=== PATIENT | female | born 1980 | race African-American/Black ===

== ENCOUNTER 2017-06-07 09:39 | Emergency (ER) | payer OTHER, MEDICAID ==
[~2017-06-07] VITALS: Ht 162.6 cm; Wt 87.5 kg
[~2017-06-07 09:39] MED LIST: ACETAMINOPHEN-1 EAC1 PO; AFRIN15 ML NS; AMOXICILLIN 50500 MG PO; CIPROFLOXACIN500 M1 PO; CLARITIN10 MG PO; COLACE100 MG PO; HYDROCHLOROTH12.5 M1 PO; HYDROCODONE-AP1 EAC6 PO; IBUPROFEN 800800 M1 PO; INDOMETHACIN 2525 MG PO; IRON325; IRON325 PO; KEFLEX500 MG PO; KLOR-CON 1010 MEQ PO; LOPRESSOR25 PO; LOPRESSOR50; LOPRESSOR50 PO; MEDROLDOSEPACK PO; MULTI VITAMIN1 EACH PO; NAPROSYN500 MG PO; NORCO 5-325 TA1 EACH PO; PHENERGAN 25 MG25 M1 PO; POTASSIUM20 PO; ROBAXIN 750 MG750 M1 PO; ROBAXIN 750 MG750 MG PO; TESSALON PERLE100 MG PO; UNICOMPLEX M TA1 TA1 PO; ZOFRAN ODT4 MG PO; ZOFRAN4 MG PO; ZPAK PO; ZYRTEC10 M5 PO
[2017-06-07] MEDS ORDERED: PHENERGAN 25 MG25 M1 PO (10:04)
[2017-06-07] MEDS ORDERED: TESSALON PERLE100 MG PO (10:04)
[2017-06-07 10:39] VITALS: BP 147/80
== END 2017-06-07 10:42 | disposition home or self-care (01) ==
LOC: M.ERS 09:39
DX: J06.9 Acute upper respiratory infection, unspecified (principal); I10 Essential (primary) hypertension; G89.29 Other chronic pain

== ENCOUNTER 2017-06-10 08:03 | Emergency (ER) | payer OTHER, MEDICAID ==
[~2017-06-10] VITALS: Ht 162.6 cm; Wt 87.5 kg
[2017-06-10 08:11] VITALS: BP 116/59
[2017-06-10] MEDS ORDERED: IBUPROFEN 800800 M1 PO (08:15)
[2017-06-10] MEDS ORDERED: NORCO 5-325 TA1 EACH PO (08:15)
== END 2017-06-10 08:23 | disposition home or self-care (01) ==
LOC: M.ERS 08:03
DX: M72.2 Plantar fascial fibromatosis (principal); I10 Essential (primary) hypertension; M79.7 Fibromyalgia

== ENCOUNTER 2017-06-12 10:46 | Emergency (ER) | payer OTHER, MEDICAID ==
[~2017-06-12] VITALS: Ht 162.6 cm; Wt 87.5 kg
[2017-06-12 10:56] VITALS: BP 131/76
== END 2017-06-12 11:22 | disposition home or self-care (01) ==
LOC: M.ERS 10:46
DX: I10 Essential (primary) hypertension (principal); G89.29 Other chronic pain

== ENCOUNTER 2017-06-16 07:18 | Emergency (ER) | payer OTHER, MEDICAID ==
[~2017-06-16] VITALS: Ht 162.6 cm; Wt 87.5 kg
[2017-06-16 07:28] LABS: URINE BILIRUBIN NEGATIVE (Negative); URINE BLOOD NEGATIVE (Negative); URINE CLARITY CLEAR; URINE COLOR YELLOW; URINE GLUCOSE-RANDOM NEGATIVE (Negative); URINE KETONES NEGATIVE (Negative); URINE LEUKOCYTES-REFLEX NEGATIVE (Negative); URINE NITRITE-REFLEX NEGATIVE (Negative); URINE PROTEIN NEGATIVE (Negative); URINE UROBILINOGEN 0.2 E.U./dl (0.2-1.0)
[2017-06-16 07:59] VITALS: BP 136/80
== END 2017-06-16 07:59 | disposition home or self-care (01) ==
LOC: M.ERS 07:18
PROVIDERS: Family Medicine
DX: Z71.1 Person with feared health complaint in whom no diagnosis is made (principal); I10 Essential (primary) hypertension; G89.29 Other chronic pain

== ENCOUNTER 2017-06-18 08:03 | Emergency (ER) | payer OTHER, MEDICAID ==
[~2017-06-18] VITALS: Ht 162.6 cm; Wt 89.4 kg
[2017-06-18 08:17] VITALS: BP 156/82
== END 2017-06-18 08:42 | disposition home or self-care (01) ==
LOC: M.ERS 08:03
DX: Z71.1 Person with feared health complaint in whom no diagnosis is made (principal); I10 Essential (primary) hypertension; G89.29 Other chronic pain

== ENCOUNTER 2017-06-19 23:11 | Emergency (ER) | payer OTHER, MEDICAID ==
[~2017-06-19] VITALS: Ht 162.6 cm; Wt 89.4 kg
[2017-06-20 00:35] VITALS: BP 100/54
== END 2017-06-20 00:35 | disposition home or self-care (01) ==
LOC: M.ERS 23:11
DX: R00.2 Palpitations (principal); I10 Essential (primary) hypertension

== ENCOUNTER 2017-06-26 09:36 | Emergency (ER) | payer OTHER, MEDICAID ==
[~2017-06-26] VITALS: Ht 162.6 cm; Wt 87.5 kg
[2017-06-26 09:52] VITALS: BP 195/86
== END 2017-06-26 09:53 | disposition home or self-care (01) ==
LOC: M.ERS 09:36
DX: Z71.1 Person with feared health complaint in whom no diagnosis is made (principal); I10 Essential (primary) hypertension; G89.29 Other chronic pain

== ENCOUNTER 2017-06-28 20:15 | Emergency (ER) | payer OTHER, MEDICAID ==
[~2017-06-28] VITALS: Ht 162.6 cm; Wt 87.5 kg
[2017-06-28 21:22] VITALS: BP 117/66
== END 2017-06-28 21:23 | disposition home or self-care (01) ==
LOC: M.ERS 20:15
DX: Z71.1 Person with feared health complaint in whom no diagnosis is made (principal); I10 Essential (primary) hypertension; G89.29 Other chronic pain

== ENCOUNTER 2017-07-03 17:38 | Emergency (ER) | payer OTHER, MEDICAID ==
[~2017-07-03] VITALS: Ht 162.6 cm; Wt 87.5 kg
[2017-07-03 18:16] LABS: ABSOLUTE BASOPHILS 0.1 thou/uL (0.0-0.2); ABSOLUTE LYMPHOCYTES 2.9 thou/uL (0.8-5.3); ABSOLUTE MONOCYTES 0.6 thou/uL (0.0-1.2); ABSOLUTE NEUTROPHILS 5.1 thou/uL (1.6-8.1); BASOPHILS 1.1 %; EOSINOPHILS 0.5 %; HEMATOCRIT 37.7 % (37.0-47.0); HEMOGLOBIN 12.2 gm/dL (12.0-15.0); LYMPHOCYTES 32.9 %; MCH 26.2 pg (26.0-34.0); MCHC 32.4 g/dL (28.0-37.0); MCV 80.8 fL (80.0-100.0); MONOCYTES 7.2 %; MPV 7.6 fl. (7.2-11.1); NUCLEATED RBCS 0 /100WBC; PLATELET COUNT* 436 thou/uL (150-400); POLYS 58.3 %; RBC 4.67 mil/uL (4.20-5.00); RDW-CV 14.3 % (10.5-14.5); WBC 8.7 thou/uL (4.0-11.0)
[2017-07-03 18:23] LABS: URINE BILIRUBIN NEGATIVE (Negative); URINE BLOOD NEGATIVE (Negative); URINE CLARITY CLEAR; URINE COLOR YELLOW; URINE GLUCOSE-RANDOM NEGATIVE (Negative); URINE KETONES NEGATIVE (Negative); URINE LEUKOCYTES-REFLEX NEGATIVE (Negative); URINE NITRITE-REFLEX NEGATIVE (Negative); URINE PROTEIN NEGATIVE (Negative); URINE UROBILINOGEN 0.2 E.U./dl (0.2-1.0)
[2017-07-03 18:24] LABS: ANION GAP 6 mmol/L (7-16); BUN 12 mg/dL (7-18); CALCIUM 9.2 mg/dL (8.5-10.1); CHLORIDE 101 mmol/L (98-107); CO2 32 mmol/L (21-32); GLUCOSE 81 mg/dL (70-99); POTASSIUM 3.8 mmol/L (3.5-5.1); SODIUM 139 mmol/L (136-145)
[2017-07-03 18:31] LABS: ALBUMIN 3.5 g/dL (3.4-5.0); ALKALINE PHOSPHATASE 66 U/L (46-116); LIPASE 191 U/L (73-393); SGOT 13 U/L (15-37); SGPT 14 U/L (30-65); TOTAL BILIRUBIN 0.3 mg/dL (<0.1-1.0); TOTAL PROTEIN 7.8 g/dL (6.4-8.2); TROPONIN-I LEVEL <0.06 ng/mL (<0.06)
[2017-07-03 19:06] VITALS: BP 114/66
--- NOTE | 2017-07-04 13:45 | EKG ---
[place] [address] ELECTROCARDIOGRAM REPORT Name: DELMI ONEILL Room: [facility]#: [id number] Admission: 07/03/17 Attend Phys: Discharge: 07/03/17 Date of : [birth year] Report #: [id number] THIS REPORT FOR: //name// [facility] ED Test Date: 2017-07-03 Test Time: 17:45:39 Pat Name: DELMI ONEILL Department: Room: Gender: F Opera Singer: HELIO : 1980 Requested By: Anahi Ngo Order Number: [id number] MD: eHrnan Lucero Measurements Intervals [place] Rate: 72 P: 38 HI: 163 QRS: 16 QRSD: 84 T: 8 QT: 375 QTc: 411 Interpretive Statements Sinus rhythm Compared to ECG 05/04/2017 13:19:50 No significant changes Electronically Signed On 07-04-2017 13:45:08 DIE REAMER by Hernan Lucero [email or web address] <ELECTRONICALLY SIGNED> By: Hernan Lucero MD, [facility] 07/04/17 1345 1745 1745 Hernan Lucero MD, FACC /EPI
== END 2017-07-03 19:07 | disposition home or self-care (01) ==
LOC: M.ERS 17:38
PROVIDERS: Nurse Practitioner
DX: R00.2 Palpitations (principal); I10 Essential (primary) hypertension; M79.7 Fibromyalgia; G89.29 Other chronic pain; M79.672 Pain in left foot

== ENCOUNTER 2017-07-10 18:03 | Emergency (ER) | payer OTHER, MEDICAID ==
[~2017-07-10] VITALS: Ht 162.6 cm; Wt 87.5 kg
[2017-07-10 18:08] VITALS: BP 154/73
== END 2017-07-10 18:22 | disposition home or self-care (01) ==
LOC: M.ERS 18:03
DX: J06.9 Acute upper respiratory infection, unspecified (principal); I10 Essential (primary) hypertension

== ENCOUNTER 2017-07-13 16:21 | Emergency (ER) | payer OTHER, MEDICAID ==
[~2017-07-13] VITALS: Ht 162.6 cm; Wt 87.5 kg
[2017-07-13 16:36] VITALS: BP 144/87
[2017-07-13] MEDS ORDERED: LOPRESSOR50 PO (16:40)
[2017-07-13] MEDS ORDERED: IRON325 PO (16:41)
== END 2017-07-13 16:49 | disposition home or self-care (01) ==
LOC: M.ERS 16:21
DX: Z71.1 Person with feared health complaint in whom no diagnosis is made (principal); I10 Essential (primary) hypertension; M79.7 Fibromyalgia; G89.29 Other chronic pain; M79.672 Pain in left foot

== ENCOUNTER 2017-07-18 19:56 | Emergency (ER) | payer OTHER, MEDICAID ==
[~2017-07-18] VITALS: Ht 162.6 cm; Wt 83.0 kg
[2017-07-18 20:23] VITALS: BP 127/73
== END 2017-07-18 20:24 | disposition home or self-care (01) ==
LOC: M.ERS 19:56
DX: Z71.1 Person with feared health complaint in whom no diagnosis is made (principal); I10 Essential (primary) hypertension; M79.7 Fibromyalgia; G89.29 Other chronic pain; M79.672 Pain in left foot

== ENCOUNTER 2017-07-27 09:57 | Emergency (ER) | payer OTHER, MEDICAID ==
[~2017-07-27] VITALS: Ht 162.6 cm; Wt 83.0 kg
[2017-07-27] MEDS ORDERED: ZOFRAN ODT4 MG PO (10:19)
[2017-07-27] MEDS ORDERED: AUGMENTIN 875-1 EACH PO (10:19)
[2017-07-27 10:36] VITALS: BP 144/88
== END 2017-07-27 10:38 | disposition home or self-care (01) ==
LOC: M.ERS 09:57
DX: J06.9 Acute upper respiratory infection, unspecified (principal); I10 Essential (primary) hypertension; M79.7 Fibromyalgia; G89.29 Other chronic pain; M79.672 Pain in left foot

== ENCOUNTER 2017-08-09 15:54 | Emergency (ER) | payer OTHER, MEDICAID ==
[~2017-08-09] VITALS: Ht 162.6 cm; Wt 87.5 kg
[~2017-08-09 15:54] MED LIST changes: +AUGMENTIN 875-1 EACH PO
[2017-08-09 16:33] LABS: URINE BILIRUBIN NEGATIVE (Negative); URINE BLOOD NEGATIVE (Negative); URINE CLARITY CLEAR; URINE COLOR YELLOW; URINE GLUCOSE-RANDOM NEGATIVE (Negative); URINE KETONES NEGATIVE (Negative); URINE LEUKOCYTES-REFLEX NEGATIVE (Negative); URINE NITRITE-REFLEX NEGATIVE (Negative); URINE PROTEIN NEGATIVE (Negative); URINE SPECIFIC GRAVITY >= 1.030 (1.005-1.030); URINE UROBILINOGEN 0.2 E.U./dl (0.2-1.0)
[2017-08-09] MEDS ORDERED: TRAMADOL 50 MG50 MG PO (16:34)
[2017-08-09 16:38] VITALS: BP 140/80
== END 2017-08-09 16:38 | disposition home or self-care (01) ==
LOC: M.ERS 15:54
PROVIDERS: Physician Assistant
DX: M54.5 Low back pain (principal); I10 Essential (primary) hypertension; M79.7 Fibromyalgia; G89.29 Other chronic pain; M79.672 Pain in left foot

== ENCOUNTER 2017-08-16 13:26 | Emergency (ER) | payer OTHER, MEDICAID ==
[~2017-08-16] VITALS: Ht 162.6 cm; Wt 86.2 kg
[~2017-08-16 13:26] MED LIST changes: +TRAMADOL 50 MG50 MG PO
[2017-08-16] MEDS ORDERED: ANTIVERT25 MG PO (13:45)
[2017-08-16 14:33] LABS: HEMATOCRIT 35.3 % (37.0-47.0); HEMOGLOBIN 11.3 gm/dL (12.0-15.0); MCHC 32.1 g/dL (28.0-37.0); MPV 7.5 fl. (7.2-11.1); RBC 4.36 mil/uL (4.20-5.00); RDW-CV 13.4 % (10.5-14.5); WBC 6.6 thou/uL (4.0-11.0)
[2017-08-16 14:40] LABS: CALCIUM 8.7 mg/dL (8.5-10.1); CREATININE 0.8 mg/dL (0.6-1.3); POTASSIUM 3.9 mmol/L (3.5-5.1)
[2017-08-16 15:00] VITALS: BP 130/70
== END 2017-08-16 15:02 | disposition home or self-care (01) ==
LOC: M.ERS 13:26
PROVIDERS: Emergency Medicine Emergency Medical Services
DX: H81.11 Benign paroxysmal vertigo, right ear (principal); I10 Essential (primary) hypertension; M79.7 Fibromyalgia; G89.29 Other chronic pain; M79.672 Pain in left foot

== ENCOUNTER 2017-08-31 19:10 | Emergency (ER) | payer OTHER, MEDICAID ==
[~2017-08-31] VITALS: Ht 162.6 cm; Wt 95.3 kg
[~2017-08-31 19:10] MED LIST changes: +ANTIVERT25 MG PO
[2017-08-31] MEDS ORDERED: CYCLOBENZAPRINE10 MG PO (19:39)
[2017-08-31] MEDS ORDERED: IBUPROFEN 800800 MG PO (19:39)
[2017-08-31 19:50] VITALS: BP 131/51
== END 2017-08-31 19:51 | disposition home or self-care (01) ==
LOC: M.ERS 19:10
DX: M54.6 Pain in thoracic spine (principal); I10 Essential (primary) hypertension; M79.7 Fibromyalgia; G89.29 Other chronic pain; M25.572 Pain in left ankle and joints of left foot

== ENCOUNTER 2017-09-06 11:57 | Emergency (ER) | payer OTHER, MEDICAID ==
[~2017-09-06] VITALS: Ht 162.6 cm; Wt 95.3 kg
[~2017-09-06 11:57] MED LIST changes: +CYCLOBENZAPRINE10 MG PO; +IBUPROFEN 800800 MG PO
[2017-09-06 12:00] VITALS: BP 128/81
[2017-09-06] MEDS ORDERED: FLONASE 0.05%50 MCG NASAL (12:05)
--- NOTE | 2017-09-07 14:33 | EKG ---
[place] [address] ELECTROCARDIOGRAM REPORT Name: DELMI ONEILL Room: [facility]#: [id number] Admission: 09/06/17 Attend Phys: Discharge: 09/06/17 Date of : [birth year] Report #: [id number] THIS REPORT FOR: //name// [facility] ED Test Date: 2017-09-06 Test Time: 12:02:13 Pat Name: DELMI ONEILL Department: Room: Gender: F Senior Risk Manager: : 1980 Requested By: Dinesh Hackett Order Number: [id number] MD: Hernan Lucero Measurements Intervals [place] Rate: 82 P: 54 HI: 179 QRS: 36 QRSD: 82 T: 11 QT: 363 QTc: 424 Interpretive Statements Sinus rhythm Baseline wander in lead(s) II,III,aVF Compared to ECG 07/03/2017 17:45:39 No significant changes Electronically Signed On 09-07-2017 14:33:39 CDT by Hernan Lucero [email or web address] <ELECTRONICALLY SIGNED> By: Hernan Lucero MD, [facility] 09/07/17 1433 1202 120 Hernan Lucero MD, FAC /EPI
== END 2017-09-06 12:09 | disposition home or self-care (01) ==
LOC: M.ERS 11:57
DX: Z71.1 Person with feared health complaint in whom no diagnosis is made (principal); I10 Essential (primary) hypertension; M79.7 Fibromyalgia; G89.29 Other chronic pain; M79.672 Pain in left foot

== ENCOUNTER 2017-09-13 20:00 | Emergency (ER) | payer OTHER, MEDICAID ==
[~2017-09-13] VITALS: Ht 162.6 cm; Wt 95.3 kg
[~2017-09-13 20:00] MED LIST changes: +FLONASE 0.05%50 MCG NASAL
[2017-09-13 20:08] VITALS: BP 139/62
[2017-09-13 20:23] LABS: URINE BILIRUBIN NEGATIVE (Negative); URINE BLOOD NEGATIVE (Negative); URINE CLARITY CLEAR; URINE COLOR YELLOW; URINE GLUCOSE-RANDOM NEGATIVE (Negative); URINE KETONES NEGATIVE (Negative); URINE LEUKOCYTES-REFLEX NEGATIVE (Negative); URINE NITRITE-REFLEX NEGATIVE (Negative); URINE PROTEIN NEGATIVE (Negative); URINE SPECIFIC GRAVITY >= 1.030 (1.005-1.030); URINE UROBILINOGEN 0.2 E.U./dl (0.2-1.0)
[2017-09-13] MEDS ORDERED: PHENAZOPYRIDIN200 M2 PO (20:31)
== END 2017-09-13 20:38 | disposition home or self-care (01) ==
LOC: M.ERS 20:00
PROVIDERS: Physician Assistant
DX: R32 Unspecified urinary incontinence (principal); I10 Essential (primary) hypertension; G89.29 Other chronic pain; M79.672 Pain in left foot; M79.7 Fibromyalgia

== ENCOUNTER 2017-09-17 14:48 | Emergency (ER) | payer OTHER, MEDICAID ==
[~2017-09-17] VITALS: Ht 162.6 cm; Wt 95.3 kg
[~2017-09-17 14:48] MED LIST changes: +PHENAZOPYRIDIN200 M2 PO
[2017-09-17 15:32] LABS: ABSOLUTE EOSINOPHILS 0.1 thou/uL (0.0-0.7); ABSOLUTE LYMPHOCYTES 2.4 thou/uL (0.8-5.3); ABSOLUTE MONOCYTES 0.5 thou/uL (0.0-1.2); ABSOLUTE NEUTROPHILS 3.8 thou/uL (1.6-8.1); BASOPHILS 0.6 %; EOSINOPHILS 1.2 %; HEMOGLOBIN 11.1 gm/dL (12.0-15.0); LYMPHOCYTES 35.3 %; MCH 26.1 pg (26.0-34.0); MCHC 32.5 g/dL (28.0-37.0); MCV 80.1 fL (80.0-100.0); MONOCYTES 6.8 %; MPV 7.5 fl. (7.2-11.1); NUCLEATED RBCS 0 /100WBC; PLATELET COUNT* 360 thou/uL (150-400); POLYS 56.1 %; RBC 4.25 mil/uL (4.20-5.00); RDW-CV 13.4 % (10.5-14.5); WBC 6.8 thou/uL (4.0-11.0)
[2017-09-17 15:41] LABS: ANION GAP 8 mmol/L (7-16); BUN 8 mg/dL (7-18); CALCIUM 8.9 mg/dL (8.5-10.1); CHLORIDE 105 mmol/L (98-107); CO2 28 mmol/L (21-32); CREATININE 0.8 mg/dL (0.6-1.3); GLUCOSE 113 mg/dL (70-99); POTASSIUM 4.2 mmol/L (3.5-5.1); SODIUM 141 mmol/L (136-145)
[2017-09-17 15:46] LABS: URINE BILIRUBIN NEGATIVE (Negative); URINE BLOOD 3+ (Negative); URINE CLARITY CLOUDY; URINE COLOR RED; URINE GLUCOSE-RANDOM NEGATIVE (Negative); URINE KETONES NEGATIVE (Negative); URINE LEUKOCYTES-REFLEX TRACE (Negative); URINE NITRITE-REFLEX NEGATIVE (Negative); URINE PROTEIN 2+ (Negative); URINE UROBILINOGEN 0.2 E.U./dl (0.2-1.0)
[2017-09-17 15:49] LABS: ALBUMIN 3.2 g/dL (3.4-5.0); ALKALINE PHOSPHATASE 58 U/L (46-116); SGOT 14 U/L (15-37); SGPT 16 U/L (30-65); TOTAL BILIRUBIN 0.2 mg/dL (<0.1-1.0); TOTAL PROTEIN 7.1 g/dL (6.4-8.2); TROPONIN-I LEVEL <0.06 ng/mL (<0.06)
[2017-09-17 15:56] LABS: CASTS None Seen /LPF (None Seen); CRYSTALS None Seen /LPF (None Seen); MUCUS None Seen strn/LPF (None Seen); SQUAMOUS 0-3 Few /LPF (0-3); URINE RBC >20 Many /HPF (0-2); URINE WBC-REFLEX 0-5 Rare /HPF (0-5)
[2017-09-17 15:57] LABS: BACTERIA-REFLEX None Seen /HPF (None Seen)
[2017-09-17 16:11] VITALS: BP 136/78
--- NOTE | 2017-09-17 16:43 | EKG ---
[place] [address] ELECTROCARDIOGRAM REPORT Name: DELMI ONEILL Room: [facility]#: [id number] Admission: 09/17/17 Attend Phys: Discharge: 09/17/17 Date of : [birth year] Report #: [id number] THIS REPORT FOR: //name// [facility] ED Test Date: 2017-09-17 Test Time: 15:17:11 Pat Name: DELMI ONEILL Department: Room: Gender: F Senior Clinical Data Coordinator: Samuel CADE : 1980 Requested By: Mar Stahl Order Number: [id number] MD: Hernan Lucero Measurements Intervals [place] Rate: 67 P: 30 IN: 170 QRS: 14 QRSD: 107 T: 3 QT: 402 QTc: 425 Interpretive Statements Sinus rhythm Abnormal R-wave progression, early transition Minimal ST elevation, anterior leads Compared to ECG 09/06/2017 12:02:13 ST (T wave) deviation now present Electronically Signed On 09-17-2017 16:43:39 CDT by Hernan Lucero [email or web address] <ELECTRONICALLY SIGNED> By: Hernan Lucero MD, [facility] 09/17/17 1643 1517 1517 Hernan Lucero MD, [facility] /EPI
== END 2017-09-17 16:11 | disposition home or self-care (01) ==
LOC: M.ERS 14:48
PROVIDERS: Nurse Practitioner Family
DX: I10 Essential (primary) hypertension (principal); M79.7 Fibromyalgia; G89.29 Other chronic pain; M79.672 Pain in left foot

== ENCOUNTER 2017-09-30 08:29 | Emergency (ER) | payer OTHER, MEDICAID ==
[~2017-09-30] VITALS: Ht 162.6 cm; Wt 97.1 kg
[2017-09-30] MEDS ORDERED: IRON325 PO (08:38)
[2017-09-30 08:58] LABS: ABSOLUTE LYMPHOCYTES 2.2 thou/uL (0.8-5.3); ABSOLUTE MONOCYTES 0.4 thou/uL (0.0-1.2); ABSOLUTE NEUTROPHILS 3.2 thou/uL (1.6-8.1); BASOPHILS 0.7 %; EOSINOPHILS 0.6 %; HEMOGLOBIN 11.3 gm/dL (12.0-15.0); LYMPHOCYTES 37.5 %; MCH 25.5 pg (26.0-34.0); MCHC 32.3 g/dL (28.0-37.0); MONOCYTES 7.1 %; MPV 7.8 fl. (7.2-11.1); NUCLEATED RBCS 0 /100WBC; PLATELET COUNT* 382 thou/uL (150-400); POLYS 54.1 %; RBC 4.43 mil/uL (4.20-5.00); RDW-CV 13.8 % (10.5-14.5); WBC 5.9 thou/uL (4.0-11.0)
[2017-09-30 09:17] LABS: ANION GAP 6 mmol/L (7-16); BUN 8 mg/dL (7-18); CALCIUM 8.7 mg/dL (8.5-10.1); CHLORIDE 104 mmol/L (98-107); CO2 30 mmol/L (21-32); CREATININE 0.8 mg/dL (0.6-1.3); GLUCOSE 105 mg/dL (70-99); POTASSIUM 3.9 mmol/L (3.5-5.1); SODIUM 140 mmol/L (136-145)
[2017-09-30 09:21] LABS: ALBUMIN 3.2 g/dL (3.4-5.0); ALKALINE PHOSPHATASE 55 U/L (46-116); LIPASE 119 U/L (73-393); SGOT 14 U/L (15-37); SGPT 15 U/L (30-65); TOTAL BILIRUBIN 0.4 mg/dL (<0.1-1.0); TOTAL PROTEIN 7.1 g/dL (6.4-8.2); TROPONIN-I LEVEL <0.06 ng/mL (<0.06)
[2017-09-30] MEDS ORDERED: CARAFATE 1 GM TA1 G1 PO (09:45)
[2017-09-30] MEDS ORDERED: ZOFRAN ODT4 MG PO (09:45)
[2017-09-30 10:08] VITALS: BP 133/81
--- NOTE | 2017-09-30 16:01 | EKG ---
[place] [address] ELECTROCARDIOGRAM REPORT Name: DELMI ONEILL Room: [facility]#: [id number] Admission: 09/30/17 Attend Phys: Discharge: 09/30/17 Date of : [birth year] Report #: [id number] THIS REPORT FOR: //name// [facility] Test Date: 2017-09-30 Test Time: 09:00:46 Pat Name: STORMYLEXIE ONEILL Department: Room: Gender: F Sander Setter: : 1980 Requested By: Jose Tolbert Order Number: [id number] MD: Tony Oneal Measurements Intervals [place] Rate: 67 P: 23 [place]: 183 QRS: 48 QRSD: 81 T: 54 QT: 387 QTc: 409 Interpretive Statements Sinus rhythm Baseline wander in lead(s) I,II,aVR Compared to ECG 09/17/2017 15:17:11 ST (T wave) deviation no longer present Electronically Signed On 09-30-2017 16:00:59 CDT by Tony Oneal [email or web address] <ELECTRONICALLY SIGNED> By: Tony Oneal MD, [facility] 09/30/17 1600 09 0900 Tony Oneal MD, [facility] /EPI
== END 2017-09-30 10:09 | disposition home or self-care (01) ==
LOC: M.ERS 08:29
PROVIDERS: Emergency Medicine Emergency Medical Services
DX: R10.13 Epigastric pain (principal); I10 Essential (primary) hypertension; M79.7 Fibromyalgia; M79.672 Pain in left foot; G89.29 Other chronic pain

== ENCOUNTER 2017-10-03 20:46 | Emergency (ER) | payer OTHER, MEDICAID ==
[~2017-10-03] VITALS: Ht 162.6 cm; Wt 97.1 kg
[~2017-10-03 20:46] MED LIST changes: +CARAFATE 1 GM TA1 G1 PO
[2017-10-03 21:04] VITALS: BP 149/82
== END 2017-10-03 21:05 | disposition home or self-care (01) ==
LOC: M.ERS 20:46
DX: M54.9 Dorsalgia, unspecified (principal); I10 Essential (primary) hypertension; M79.7 Fibromyalgia; M79.672 Pain in left foot; G89.29 Other chronic pain

== ENCOUNTER 2017-10-11 19:18 | Emergency (ER) | payer OTHER, MEDICAID ==
[~2017-10-11] VITALS: Ht 162.6 cm; Wt 97.1 kg
[2017-10-11] MEDS ORDERED: ZANTAC 150MG T150 MG (19:32)
[2017-10-11 19:54] LABS: URINE BILIRUBIN NEGATIVE (Negative); URINE BLOOD NEGATIVE (Negative); URINE CLARITY CLEAR; URINE COLOR YELLOW; URINE GLUCOSE-RANDOM NEGATIVE (Negative); URINE KETONES NEGATIVE (Negative); URINE LEUKOCYTES-REFLEX NEGATIVE (Negative); URINE NITRITE-REFLEX NEGATIVE (Negative); URINE PROTEIN NEGATIVE (Negative); URINE SPECIFIC GRAVITY 1.025 (1.005-1.030); URINE UROBILINOGEN 0.2 E.U./dl (0.2-1.0)
[2017-10-11 20:20] LABS: ABSOLUTE BASOPHILS 0.1 thou/uL (0.0-0.2); ABSOLUTE EOSINOPHILS 0.1 thou/uL (0.0-0.7); ABSOLUTE MONOCYTES 0.6 thou/uL (0.0-1.2); ABSOLUTE NEUTROPHILS 5.3 thou/uL (1.6-8.1); BASOPHILS 0.6 %; EOSINOPHILS 0.7 %; HEMATOCRIT 35.1 % (37.0-47.0); HEMOGLOBIN 11.3 gm/dL (12.0-15.0); LYMPHOCYTES 33.4 %; MCH 25.6 pg (26.0-34.0); MCHC 32.3 g/dL (28.0-37.0); MCV 79.1 fL (80.0-100.0); MPV 7.5 fl. (7.2-11.1); NUCLEATED RBCS 0 /100WBC; PLATELET COUNT* 347 thou/uL (150-400); POLYS 58.3 %; RBC 4.44 mil/uL (4.20-5.00); RDW-CV 13.4 % (10.5-14.5); WBC 9.1 thou/uL (4.0-11.0)
[2017-10-11 20:28] LABS: CALCIUM 8.7 mg/dL (8.5-10.1); CREATININE 0.9 mg/dL (0.6-1.3); POTASSIUM 3.6 mmol/L (3.5-5.1)
[2017-10-11 20:32] LABS: ALBUMIN 3.3 g/dL (3.4-5.0); TOTAL BILIRUBIN 0.3 mg/dL (<0.1-1.0); TOTAL PROTEIN 7.3 g/dL (6.4-8.2)
[2017-10-11 21:54] VITALS: BP 125/69
== END 2017-10-11 21:54 | disposition home or self-care (01) ==
LOC: M.ERS 19:18
PROVIDERS: Nurse Practitioner Family
DX: K59.00 Constipation, unspecified (principal); I10 Essential (primary) hypertension; M79.7 Fibromyalgia; M79.672 Pain in left foot; G89.29 Other chronic pain

== ENCOUNTER 2017-10-27 13:27 | Emergency (ER) | payer OTHER, MEDICAID ==
[~2017-10-27] VITALS: Ht 162.6 cm; Wt 97.1 kg
[~2017-10-27 13:27] MED LIST changes: +ZANTAC 150MG T150 MG
[2017-10-27 14:05] LABS: URINE BILIRUBIN NEGATIVE (Negative); URINE BLOOD NEGATIVE (Negative); URINE CLARITY CLEAR; URINE COLOR YELLOW; URINE GLUCOSE-RANDOM NEGATIVE (Negative); URINE KETONES NEGATIVE (Negative); URINE LEUKOCYTES-REFLEX NEGATIVE (Negative); URINE NITRITE-REFLEX NEGATIVE (Negative); URINE PROTEIN NEGATIVE (Negative); URINE SPECIFIC GRAVITY <= 1.005 (1.005-1.030); URINE UROBILINOGEN 0.2 E.U./dl (0.2-1.0)
[2017-10-27 14:26] LABS: CALCIUM 8.6 mg/dL (8.5-10.1); CREATININE 0.8 mg/dL (0.6-1.3); POTASSIUM 3.7 mmol/L (3.5-5.1)
[2017-10-27 14:30] LABS: ALBUMIN 3.2 g/dL (3.4-5.0); TOTAL BILIRUBIN 0.2 mg/dL (<0.1-1.0); TOTAL PROTEIN 7.4 g/dL (6.4-8.2)
[2017-10-27 14:41] LABS: ABSOLUTE LYMPHOCYTES 2.5 thou/uL (0.8-5.3); ABSOLUTE MONOCYTES 0.4 thou/uL (0.0-1.2); ABSOLUTE NEUTROPHILS 3.3 thou/uL (1.6-8.1); BASOPHILS 0.5 %; EOSINOPHILS 0.7 %; HEMATOCRIT 35.1 % (37.0-47.0); HEMOGLOBIN 11.4 gm/dL (12.0-15.0); LYMPHOCYTES 39.8 %; MCH 25.5 pg (26.0-34.0); MCHC 32.6 g/dL (28.0-37.0); MCV 78.1 fL (80.0-100.0); MPV 7.6 fl. (7.2-11.1); NUCLEATED RBCS 0 /100WBC; PLATELET COUNT* 395 thou/uL (150-400); RBC 4.49 mil/uL (4.20-5.00); RDW-CV 13.4 % (10.5-14.5); WBC 6.3 thou/uL (4.0-11.0)
[2017-10-27 15:08] VITALS: BP 125/70
--- NOTE | 2017-10-28 11:41 | EKG ---
[place] [address] ELECTROCARDIOGRAM REPORT Name: DELMI ONEILL Room: [facility]#: [id number] Admission: 10/27/17 Attend Phys: Discharge: 10/27/17 Date of : [birth year] Report #: [id number] THIS REPORT FOR: //name// [facility] ED Test Date: 2017-10-27 Test Time: 13:52:03 Pat Name: DELMI ONEILL Department: Room: Gender: F Park Maintenance Technician: Samuel CADE : 1980 Requested By: Heaven Art Order Number: [id number] MD: Mukund Frias Measurements Intervals [place] Rate: 64 P: 14 IA: 180 QRS: 8 QRSD: 84 T: -5 QT: 393 QTc: 406 Interpretive Statements Sinus rhythm Consider left atrial enlargement Borderline repolarization abnormality Compared to ECG 09/30/2017 09:00:46 No significant changes Electronically Signed On 10-28-2017 11:40:59 CDT by Mukund Frias [email or web address] <ELECTRONICALLY SIGNED> By: Mukund Frias MD, [facility] 10/28/17 1140 1352 1352 Mukund Frias MD, FAC /EPI
== END 2017-10-27 15:09 | disposition home or self-care (01) ==
LOC: M.ERS 13:27
PROVIDERS: Physician Assistant
DX: R42 Dizziness and giddiness (principal); I10 Essential (primary) hypertension; G89.29 Other chronic pain; M79.672 Pain in left foot; M79.7 Fibromyalgia

== ENCOUNTER 2017-11-12 14:17 | Emergency (ER) | payer OTHER, MEDICAID ==
[~2017-11-12] VITALS: Ht 165.1 cm; Wt 97.1 kg
[2017-11-12 14:22] VITALS: BP 133/76
== END 2017-11-12 14:27 | disposition home or self-care (01) ==
LOC: M.ERS 14:17
DX: J30.2 Other seasonal allergic rhinitis (principal); I10 Essential (primary) hypertension; M79.7 Fibromyalgia; G89.29 Other chronic pain; M79.672 Pain in left foot

== ENCOUNTER → 2017-12-07 | Emergency (ER) | payer OTHER, MEDICAID ==
[~2017-12-07] MED LIST changes: +AMOXICILLIN 50500 M1 PO; +AMOXIL 875 MG875 M1 PO; +CLONIDINE0.1 PO; +FLEXERIL PO; +MUCINEX1200 MG PO; +Magic Mouthwash PO; +PREDNISONE 20 M20 M1 PO; +PREDNISONE50 MG PO
== END ==
LOC: M.ERS 19:36
DX: Z53.21 Procedure and treatment not carried out due to patient leaving prior to being seen by health care provider (principal)

== ENCOUNTER 2017-12-08 07:23 | Emergency (ER) | payer OTHER, MEDICAID ==
[~2017-12-08] VITALS: Ht 165.1 cm; Wt 90.7 kg
[~2017-12-08 07:23] MED LIST changes: -AMOXICILLIN 50500 M1 PO; -AMOXIL 875 MG875 M1 PO; -CLONIDINE0.1 PO; -FLEXERIL PO; -MUCINEX1200 MG PO; -Magic Mouthwash PO; -PREDNISONE 20 M20 M1 PO; -PREDNISONE50 MG PO
[2017-12-08 08:16] VITALS: BP 132/64
== END 2017-12-08 08:17 | disposition home or self-care (01) ==
LOC: M.ERS 07:23
DX: S80.11XA Contusion of right lower leg, initial encounter (principal); I10 Essential (primary) hypertension; M79.7 Fibromyalgia; W22.8XXA Striking against or struck by other objects, initial encounter; Y93.89 Activity, other specified; Y92.89 Other specified places as the place of occurrence of the external cause; Y99.8 Other external cause status

== ENCOUNTER 2017-12-17 11:26 | Emergency (ER) | payer OTHER, MEDICAID ==
[~2017-12-17] VITALS: Ht 167.6 cm; Wt 90.7 kg
[2017-12-17] MEDS ORDERED: AMOXICILLIN 50500 MG PO (11:52)
[2017-12-17 11:58] VITALS: BP 134/64
== END 2017-12-17 11:59 | disposition home or self-care (01) ==
LOC: M.ERS 11:26
DX: J32.0 Chronic maxillary sinusitis (principal); I10 Essential (primary) hypertension; M79.7 Fibromyalgia; G89.29 Other chronic pain; M79.672 Pain in left foot

== ENCOUNTER 2017-12-30 17:46 | Emergency (ER) | payer OTHER, MEDICAID ==
[~2017-12-30] VITALS: Ht 162.6 cm; Wt 99.8 kg
[2017-12-30] MEDS ORDERED: FLEXERIL PO (18:25)
[2017-12-30 18:36] VITALS: BP 139/83
== END 2017-12-30 18:37 | disposition home or self-care (01) ==
LOC: M.ERS 17:46
DX: M54.5 Low back pain (principal); G89.29 Other chronic pain; M79.672 Pain in left foot; I10 Essential (primary) hypertension; M79.7 Fibromyalgia

== ENCOUNTER 2018-01-06 16:18 | Emergency (ER) | payer OTHER, MEDICAID ==
[~2018-01-06] VITALS: Ht 162.6 cm; Wt 99.8 kg
[~2018-01-06 16:18] MED LIST changes: +FLEXERIL PO
[2018-01-06] MEDS ORDERED: AUGMENTIN 875-1 EACH PO (17:07)
[2018-01-06 17:16] VITALS: BP 128/65
== END 2018-01-06 17:17 | disposition home or self-care (01) ==
LOC: M.ERS 16:18
DX: J32.0 Chronic maxillary sinusitis (principal); J32.1 Chronic frontal sinusitis; I10 Essential (primary) hypertension; M79.7 Fibromyalgia; G89.29 Other chronic pain; M79.672 Pain in left foot

== ENCOUNTER 2018-01-16 07:58 | Emergency (ER) | payer OTHER, MEDICAID ==
[~2018-01-16] VITALS: Ht 162.6 cm; Wt 99.8 kg
[2018-01-16 08:06] VITALS: BP 152/90
[2018-01-16] MEDS ORDERED: MEDROLDOSEPACK PO (08:34)
[2018-01-16] MEDS ORDERED: MUCINEX1200 MG PO (08:34)
== END 2018-01-16 08:48 | disposition home or self-care (01) ==
LOC: M.ERS 07:58
DX: R09.81 Nasal congestion (principal); R06.02 Shortness of breath; I10 Essential (primary) hypertension; M79.7 Fibromyalgia; M79.672 Pain in left foot; G89.29 Other chronic pain

== ENCOUNTER 2018-01-26 10:25 | Emergency (ER) | payer OTHER, MEDICAID ==
[~2018-01-26] VITALS: Ht 162.6 cm; Wt 99.8 kg
[~2018-01-26 10:25] MED LIST changes: +MUCINEX1200 MG PO
[2018-01-26 10:30] VITALS: BP 138/76
[2018-01-26] MEDS ORDERED: AMOXICILLIN 50500 MG PO (10:39)
[2018-01-26] MEDS ORDERED: PREDNISONE 20 M20 M1 PO (10:39)
== END 2018-01-26 10:56 | disposition home or self-care (01) ==
LOC: M.ERS 10:25
DX: J32.0 Chronic maxillary sinusitis (principal); I10 Essential (primary) hypertension; M79.7 Fibromyalgia; G89.29 Other chronic pain; M79.672 Pain in left foot

== ENCOUNTER 2018-01-29 10:43 | Emergency (ER) | payer OTHER, MEDICAID ==
[~2018-01-29] VITALS: Ht 162.6 cm; Wt 99.8 kg
[~2018-01-29 10:43] MED LIST changes: +PREDNISONE 20 M20 M1 PO
[2018-01-29 12:30] VITALS: BP 130/77
== END 2018-01-29 12:31 | disposition home or self-care (01) ==
LOC: M.ERS 10:43
DX: J32.1 Chronic frontal sinusitis (principal); J32.0 Chronic maxillary sinusitis; I10 Essential (primary) hypertension; G89.29 Other chronic pain; M79.672 Pain in left foot; M79.7 Fibromyalgia

== ENCOUNTER 2018-02-07 16:57 | Emergency (ER) | payer OTHER, MEDICAID ==
[~2018-02-07] VITALS: Ht 165.1 cm; Wt 108.0 kg
[2018-02-07 17:34] LABS: CALCIUM 8.4 mg/dL (8.5-10.1); POTASSIUM 3.5 mmol/L (3.5-5.1)
[2018-02-07] MEDS ORDERED: ZOFRAN ODT4 MG PO (17:35)
[2018-02-07 17:41] VITALS: BP 133/79
--- NOTE | 2018-02-10 10:21 | EKG ---
[place] [address] ELECTROCARDIOGRAM REPORT Name: DELMI ONEILL Room: [facility]#: [id number] Admission: 02/07/18 Attend Phys: Discharge: 02/07/18 Date of : [birth year] Report #: [id number] THIS REPORT FOR: //name// [facility] ED Test Date: 2018-02-07 Test Time: 17:20:49 Pat Name: STORMYLEXIE ONEILL Department: Room: Gender: F Advertising Account Executive: GOYO : 1980 Requested By: Coral Thomas Order Number: [id number] MD: Jesus Manuel Sosa Measurements Intervals [place] Rate: 87 P: 56 [place]: 178 QRS: 17 QRSD: 85 T: 3 QT: 358 QTc: 431 Interpretive Statements Sinus rhythm Consider left atrial enlargement Baseline wander in lead(s) II Compared to ECG 10/27/2017 13:52:03 No significant changes Electronically Signed On 02-10-2018 10:21:41 CDT by Jesus Manuel Sosa [email or web address] <ELECTRONICALLY SIGNED> By: Jesus Manuel Sosa MD, [facility] 02/10/18 1021 1720 1720 Jesus Manuel Sosa MD, [facility] /EPI
== END 2018-02-07 17:43 | disposition home or self-care (01) ==
LOC: M.ERS 16:57
PROVIDERS: Nurse Practitioner Family
DX: Z71.1 Person with feared health complaint in whom no diagnosis is made (principal); I10 Essential (primary) hypertension; M79.7 Fibromyalgia; G89.29 Other chronic pain; M79.672 Pain in left foot

== ENCOUNTER 2018-02-23 11:53 | Emergency (ER) | payer OTHER, MEDICAID ==
[~2018-02-23] VITALS: Ht 162.6 cm; Wt 99.8 kg
[2018-02-23] MEDS ORDERED: MEDROLDOSEPACK PO (12:45)
[2018-02-23] MEDS ORDERED: AMOXIL 875 MG875 M1 PO (12:45)
[2018-02-23 12:50] VITALS: BP 125/85
== END 2018-02-23 12:53 | disposition home or self-care (01) ==
LOC: M.ERS 11:53
DX: J32.0 Chronic maxillary sinusitis (principal); I10 Essential (primary) hypertension; M79.7 Fibromyalgia; M79.672 Pain in left foot; G89.29 Other chronic pain

== ENCOUNTER → 2018-02-25 | Outpatient (CLI) | payer OTHER, MEDICAID ==
[~2018-02-25] MED LIST changes: +AMOXICILLIN 50500 M1 PO; +AMOXIL 875 MG875 M1 PO; +CLONIDINE0.1 PO; +Magic Mouthwash PO; +PREDNISONE50 MG PO
--- NOTE | 2018-02-25 14:07 | 2DMMODE ---
[place] [address] 2 D/M-MODE ECHOCARDIOGRAM Name: DELMI ONEILL Room: [facility]#: [id number] Admission: 02/25/18 Attend Phys: BABAR Arredondo Discharge: Date of : [birth year] Date of Service: 02/25/18 1407 Report #: [id number] THIS REPORT FOR: //name// APPROVED REPORT Study performed: 02/25/2018 08:52:07 EXAM: Comprehensive 2D, Doppler, and color-flow Echocardiogram Patient Location: Out-Patient Status: routine BSA: 2.04 HR: 60 bpm BP: 150/96 mmHg Other Information Study Quality: Good Indications Murmur 2D Dimensions IVSd: 8.87 (7-11mm) LVOT Diam: 18.68 (18-24mm) LVDd: 42.69 mm PWd: 8.56 (7-11mm) Ascending Ao: 22.89 (22-36mm) LVDs: 28.24 (25-40mm) Aortic Root: 23.18 mm Volumes Left Atrial Volume (Systole) LA ESV Index: 18.30 mL/m2 Aortic Valve AoV Peak Virgil.: 1.63 m/s AO Peak Gr.: 10.57 mmHg LVOT Max P.31 mmHg AO Mean Gr.: 5.30 mmHg LVOT Mean P.15 mmHg LVOT Max V: 1.15 m/s AO V2 VTI: 33.45 cm LVOT Mean V: 0.65 m/s JOSE M (VTI): 1.83 cm2 LVOT V1 VTI: 22.39 cm Mitral Valve E/A Ratio: 1.54 MV Decel. Time: 203.05 ms MV E Max Virgil.: 0.97 m/s MV PHT: 58.88 [place] [address] 2 D/M-MODE ECHOCARDIOGRAM Name: DELMI ONEILL Room: [facility]#: [id number] Admission: 02/25/18 Attend Phys: BABAR Arredondo Discharge: Date of : 80 Date of Service: 02/25/18 1407 Report #: [id number] MVA (PHT): 3.74 cm2 TDI E/Lateral E': 7.46 E/Medial E': 8.08 Medial E' Virgil.: 0.12 m/s Lateral E' Virgil.: 0.13 m/s Pulmonary Valve PV Peak Virgil.: 0.99 m/s PV Peak Gr.: 3.90 mmHg Tricuspid Valve RAP Estimate: 5.00 mmHg TR Peak Gr.: 24.46 mmHg RVSP: 29.46 mmHg PA Pressure: 29.46 mmHg Left Ventricle The left ventricle is normal size. There is normal LV segmental wall motion. There is normal left ventricular wall thickness. Left ventricular systolic function is normal. The left ventricular ejection fraction is within the normal range. LVEF is 55-60%. The left ventricular diastolic function is normal. Right Ventricle The right ventricle is normal size. The right ventricular systolic function is normal. Atria The left atrium size is normal. The right atrium size is normal. Aortic Valve The aortic valve is normal in structure. No aortic regurgitation is present. There is no aortic valvular stenosis. Mitral Valve The mitral valve is normal in structure. Mild mitral regurgitation. No evidence of mitral valve stenosis. Tricuspid Valve The tricuspid valve is normal in structure. Mild tricuspid regurgitation. Pulmonic Valve The pulmonary valve is normal in structure. Mild [place] [address] 2 D/M-MODE ECHOCARDIOGRAM Name: DELMI ONEILL Room: [facility]#: [id number] Admission: 02/25/18 Attend Phys: Sameera Sweet, OFFICE MACHINE INSPECTOR Discharge: Date of : 80 Date of Service: 02/25/18 1407 Report #: [id number] Great Vessels The aortic root is normal in size. IVC is normal in size and collapses >50% with inspiration. Pericardium There is no pericardial effusion. <Conclusion> LVEF is 55-60%. There is normal LV segmental wall motion. No aortic regurgitation is present. There is no aortic valvular stenosis. Mild mitral regurgitation. Mild tricuspid regurgitation. Mild pulmonic regurgitation. <ELECTRONICALLY SIGNED> By: Tony Oneal MD, FACC 02/25/18 140 140 140 Tony Oneal MD, FACC /INF
== END ==
LOC: M.CRD 08:04
DX: I08.1 Rheumatic disorders of both mitral and tricuspid valves (principal)

== ENCOUNTER 2018-03-06 07:51 | Emergency (ER) | payer OTHER, MEDICAID ==
[~2018-03-06] VITALS: Ht 162.6 cm; Wt 99.8 kg
[~2018-03-06 07:51] MED LIST changes: -AMOXICILLIN 50500 M1 PO; -CLONIDINE0.1 PO; -Magic Mouthwash PO; -PREDNISONE50 MG PO
[2018-03-06 08:22] VITALS: BP 109/73
== END 2018-03-06 08:22 | disposition home or self-care (01) ==
LOC: M.ERS 07:51
DX: B34.9 Viral infection, unspecified (principal); M65.4 Radial styloid tenosynovitis [de Quervain]; I10 Essential (primary) hypertension; M79.7 Fibromyalgia; G89.29 Other chronic pain; M79.672 Pain in left foot

== ENCOUNTER 2018-03-10 21:34 | Emergency (ER) | payer OTHER, MEDICAID ==
[~2018-03-10] VITALS: Ht 162.6 cm; Wt 99.8 kg
[2018-03-10 21:51] LABS: URINE BILIRUBIN NEGATIVE (Negative); URINE BLOOD 3+ (Negative); URINE CLARITY CLEAR; URINE GLUCOSE-RANDOM NEGATIVE (Negative); URINE KETONES NEGATIVE (Negative); URINE LEUKOCYTES-REFLEX NEGATIVE (Negative); URINE NITRITE-REFLEX NEGATIVE (Negative); URINE PROTEIN 1+ (Negative); URINE SPECIFIC GRAVITY <= 1.005 (1.005-1.030); URINE UROBILINOGEN 0.2 E.U./dl (0.2-1.0)
[2018-03-10 21:54] LABS: URINE COLOR PINK
[2018-03-10 21:56] LABS: CASTS None Seen /LPF (None Seen); SQUAMOUS 4-10 Moderate /LPF (0-3)
[2018-03-10 21:58] LABS: BACTERIA-REFLEX 1-9 Few /HPF (None Seen); CRYSTALS None Seen /LPF (None Seen); URINE RBC >20 Many /HPF (0-2); URINE WBC-REFLEX 0-5 Rare /HPF (0-5)
[2018-03-10 22:19] VITALS: BP 124/88
== END 2018-03-10 22:20 | disposition home or self-care (01) ==
LOC: M.ERS 21:34
PROVIDERS: Personal Emergency Response Attendant
DX: S46.812A Strain of other muscles, fascia and tendons at shoulder and upper arm level, left arm, initial encounter (principal); R35.0 Frequency of micturition; I10 Essential (primary) hypertension; M79.7 Fibromyalgia; G89.29 Other chronic pain; M79.672 Pain in left foot; X58.XXXA Exposure to other specified factors, initial encounter; Y93.E5 Activity, floor mopping and cleaning; Y92.89 Other specified places as the place of occurrence of the external cause; Y99.8 Other external cause status

== ENCOUNTER 2018-03-18 08:26 | Emergency (ER) | payer OTHER, MEDICAID ==
[~2018-03-18] VITALS: Ht 165.1 cm; Wt 99.8 kg
[2018-03-18] MEDS ORDERED: AMOXICILLIN 50500 MG PO (08:43)
[2018-03-18 09:04] VITALS: BP 125/71
== END 2018-03-18 09:05 | disposition home or self-care (01) ==
LOC: M.ERS 08:26
DX: J06.9 Acute upper respiratory infection, unspecified (principal); I10 Essential (primary) hypertension; M79.7 Fibromyalgia

== ENCOUNTER 2018-03-20 12:29 | Emergency (ER) | payer OTHER, MEDICAID ==
[~2018-03-20] VITALS: Ht 162.6 cm; Wt 90.7 kg
[2018-03-20 12:33] VITALS: BP 147/80
[2018-03-20] MEDS ORDERED: FLEXERIL PO (12:43)
[2018-03-20] MEDS ORDERED: PREDNISONE50 MG PO (12:43)
== END 2018-03-20 12:45 | disposition home or self-care (01) ==
LOC: M.ERS 12:29
DX: M79.605 Pain in left leg (principal); I10 Essential (primary) hypertension; M79.7 Fibromyalgia; G89.29 Other chronic pain; M79.672 Pain in left foot

== ENCOUNTER 2018-04-04 21:37 | Emergency (ER) | payer OTHER, MEDICAID ==
[~2018-04-04] VITALS: Ht 162.6 cm; Wt 99.8 kg
[~2018-04-04 21:37] MED LIST changes: +PREDNISONE50 MG PO
[2018-04-04 22:09] LABS: URINE BILIRUBIN NEGATIVE (Negative); URINE BLOOD 3+ (Negative); URINE CLARITY CLEAR; URINE COLOR YELLOW; URINE GLUCOSE-RANDOM NEGATIVE (Negative); URINE KETONES NEGATIVE (Negative); URINE LEUKOCYTES-REFLEX NEGATIVE (Negative); URINE NITRITE-REFLEX NEGATIVE (Negative); URINE PROTEIN NEGATIVE (Negative); URINE SPECIFIC GRAVITY >= 1.030 (1.005-1.030); URINE UROBILINOGEN 0.2 E.U./dl (0.2-1.0)
[2018-04-04 22:13] LABS: BACTERIA-REFLEX None Seen /HPF (None Seen); CASTS None Seen /LPF (None Seen); CRYSTALS None Seen /LPF (None Seen); MUCUS 0-3 Light strn/LPF (None Seen); SQUAMOUS 4-10 Moderate /LPF (0-3); URINE RBC 3-10 Few /HPF (0-2); URINE WBC-REFLEX None Seen /HPF (0-5)
[2018-04-04 22:36] VITALS: BP 141/77
== END 2018-04-04 22:40 | disposition home or self-care (01) ==
LOC: M.ERS 21:37
PROVIDERS: Nurse Practitioner Family
DX: R31.9 Hematuria, unspecified (principal); R35.0 Frequency of micturition; I10 Essential (primary) hypertension; M79.7 Fibromyalgia; M79.672 Pain in left foot; G89.29 Other chronic pain

== ENCOUNTER 2018-04-11 10:57 | Emergency (ER) | payer OTHER, MEDICAID ==
[~2018-04-11] VITALS: Ht 162.6 cm; Wt 99.8 kg
[2018-04-11 11:48] VITALS: BP 129/87
== END 2018-04-11 11:49 | disposition home or self-care (01) ==
LOC: M.ERS 10:57
DX: L30.9 Dermatitis, unspecified (principal); S20.312A Abrasion of left front wall of thorax, initial encounter; X58.XXXA Exposure to other specified factors, initial encounter; Y93.89 Activity, other specified; Y92.89 Other specified places as the place of occurrence of the external cause; Y99.8 Other external cause status; I10 Essential (primary) hypertension; M79.7 Fibromyalgia; M79.672 Pain in left foot; G89.29 Other chronic pain

== ENCOUNTER 2018-04-19 12:17 | Emergency (ER) | payer OTHER, MEDICAID ==
[~2018-04-19] VITALS: Ht 162.6 cm; Wt 99.8 kg
[2018-04-19 12:48] VITALS: BP 134/46
== END 2018-04-19 12:50 | disposition home or self-care (01) ==
LOC: M.ERS 12:17
DX: M72.2 Plantar fascial fibromatosis (principal); I10 Essential (primary) hypertension; M79.7 Fibromyalgia

== ENCOUNTER 2018-04-22 08:46 | Emergency (ER) | payer OTHER, MEDICAID ==
[~2018-04-22] VITALS: Ht 162.6 cm; Wt 99.8 kg
[2018-04-22] MEDS ORDERED: CLONIDINE0.1 PO (10:12)
[2018-04-22 10:17] VITALS: BP 150/86
--- NOTE | 2018-04-22 16:29 | EKG ---
[place] [address] ELECTROCARDIOGRAM REPORT Name: DELMI ONEILL Room: [facility]#: [id number] Admission: 04/22/18 Attend Phys: Discharge: 04/22/18 Date of : [birth year] Report #: [id number] THIS REPORT FOR: //name// [facility] ED Test Date: 2018-04-22 Test Time: 08:58:05 Pat Name: DELMI ONEILL Department: Room: Gender: F Business Analytics Faculty Member: Samuel CADE : 1980 Requested By: Heaven Beckett Order Number: [id number] MD: Tony Oneal Measurements Intervals [place] Rate: 88 P: 50 [place]: 174 QRS: 9 QRSD: 81 T: 7 QT: 352 QTc: 426 Interpretive Statements Sinus rhythm Probable left atrial enlargement Compared to ECG 02/07/2018 17:20:49 No significant changes Electronically Signed On 04-22-2018 16:29:29 PAPER PATTERN INSPECTOR by oTny Oneal [email or web address] <ELECTRONICALLY SIGNED> By: Tony Oneal MD, [facility] 04/22/18 1629 0858 0858 Tony Oneal MD, [facility] /EPI
== END 2018-04-22 10:18 | disposition home or self-care (01) ==
LOC: M.ERS 08:46
DX: I10 Essential (primary) hypertension (principal); M79.7 Fibromyalgia; G89.29 Other chronic pain; M79.672 Pain in left foot

== ENCOUNTER 2018-05-07 21:07 | Emergency (ER) | payer OTHER, MEDICAID ==
[~2018-05-07] VITALS: Ht 162.6 cm; Wt 97.5 kg
[~2018-05-07 21:07] MED LIST changes: +CLONIDINE0.1 PO
[2018-05-07] MEDS ORDERED: AMOXICILLIN 50500 M1 PO (22:07)
[2018-05-07 22:17] VITALS: BP 122/65
[2018-05-08] MEDS ORDERED: Magic Mouthwash PO (10:31)
[2018-05-08] MEDS ORDERED: NORCO 5-325 TA1 EACH PO (10:31)
== END 2018-05-07 22:17 | disposition home or self-care (01) ==
LOC: M.ERS 21:07
DX: H66.91 Otitis media, unspecified, right ear (principal); I10 Essential (primary) hypertension; M79.7 Fibromyalgia; M79.672 Pain in left foot; G89.29 Other chronic pain

== ENCOUNTER 2018-05-08 09:33 | Emergency (ER) | payer OTHER, MEDICAID ==
[~2018-05-08] VITALS: Ht 162.6 cm; Wt 97.5 kg
[~2018-05-08 09:33] MED LIST changes: +AMOXICILLIN 50500 M1 PO
[2018-05-08] MEDS ORDERED: NORCO 5-325 TA1 EACH PO (10:31)
[2018-05-08] MEDS ORDERED: Magic Mouthwash PO (10:31)
[2018-05-08 10:50] LABS: ABSOLUTE BASOPHILS 0.1 thou/uL (0.0-0.2); ABSOLUTE MONOCYTES 0.4 thou/uL (0.0-1.2); ABSOLUTE NEUTROPHILS 2.9 thou/uL (1.6-8.1); BASOPHILS 0.9 %; EOSINOPHILS 0.7 %; HEMATOCRIT 36.2 % (37.0-47.0); HEMOGLOBIN 11.6 gm/dL (12.0-15.0); LYMPHOCYTES 36.6 %; MCH 25.3 pg (26.0-34.0); MCHC 32.1 g/dL (28.0-37.0); MCV 78.6 fL (80.0-100.0); MONOCYTES 8.4 %; MPV 7.8 fl. (7.2-11.1); NUCLEATED RBCS 0 /100WBC; PLATELET COUNT* 392 thou/uL (150-400); POLYS 53.4 %; RBC 4.61 mil/uL (4.20-5.00); RDW-CV 14.8 % (10.5-14.5); WBC 5.3 thou/uL (4.0-11.0)
[2018-05-08 11:45] VITALS: BP 148/70
== END 2018-05-08 11:48 | disposition home or self-care (01) ==
LOC: M.ERS 09:33
PROVIDERS: Personal Emergency Response Attendant
DX: E86.0 Dehydration (principal); J02.9 Acute pharyngitis, unspecified; I10 Essential (primary) hypertension; M79.7 Fibromyalgia; M79.672 Pain in left foot; G89.29 Other chronic pain

== ENCOUNTER 2018-05-18 12:20 | Emergency (ER) | payer OTHER, MEDICAID ==
[~2018-05-18] VITALS: Ht 162.6 cm; Wt 99.8 kg
[~2018-05-18 12:20] MED LIST changes: +Magic Mouthwash PO
[2018-05-18] MEDS ORDERED: MEDROLDOSEPACK PO (12:41)
[2018-05-18] MEDS ORDERED: FLONASE 0.05%50 MCG NASAL (12:41)
[2018-05-18] MEDS ORDERED: HYDROXYZINE HCL25 M1 PO (12:41)
[2018-05-18 12:59] VITALS: BP 147/76
== END 2018-05-18 13:00 | disposition home or self-care (01) ==
LOC: M.ERS 12:20
DX: J30.9 Allergic rhinitis, unspecified (principal); I10 Essential (primary) hypertension; M79.7 Fibromyalgia; M79.672 Pain in left foot; G89.29 Other chronic pain

== ENCOUNTER 2018-05-30 18:39 | Emergency (ER) | payer OTHER, MEDICAID ==
[~2018-05-30] VITALS: Ht 162.6 cm; Wt 99.8 kg
[~2018-05-30 18:39] MED LIST changes: +HYDROXYZINE HCL25 M1 PO
[2018-05-30 19:07] LABS: URINE BILIRUBIN NEGATIVE (Negative); URINE BLOOD NEGATIVE (Negative); URINE CLARITY CLEAR; URINE COLOR YELLOW; URINE GLUCOSE-RANDOM NEGATIVE (Negative); URINE KETONES NEGATIVE (Negative); URINE LEUKOCYTES-REFLEX NEGATIVE (Negative); URINE NITRITE-REFLEX NEGATIVE (Negative); URINE PROTEIN NEGATIVE (Negative); URINE SPECIFIC GRAVITY >= 1.030 (1.005-1.030); URINE UROBILINOGEN 0.2 E.U./dl (0.2-1.0)
[2018-05-30] MEDS ORDERED: DIFLUCAN200 MG PO (20:29)
[2018-05-30 20:34] VITALS: BP 144/84
== END 2018-05-30 20:34 | disposition home or self-care (01) ==
LOC: M.ERS 18:39
PROVIDERS: Physician Assistant
DX: N76.0 Acute vaginitis (principal); I10 Essential (primary) hypertension; M79.7 Fibromyalgia; G89.29 Other chronic pain; M79.672 Pain in left foot

== ENCOUNTER 2018-06-03 13:07 | Emergency (ER) | payer OTHER, MEDICAID ==
[~2018-06-03] VITALS: Ht 162.6 cm; Wt 99.8 kg
[~2018-06-03 13:07] MED LIST changes: +DIFLUCAN200 MG PO
[2018-06-03 13:12] VITALS: BP 141/79
== END 2018-06-03 13:18 | disposition home or self-care (01) ==
LOC: M.ERS 13:07
DX: Z71.1 Person with feared health complaint in whom no diagnosis is made (principal); M79.7 Fibromyalgia; G89.29 Other chronic pain; M79.672 Pain in left foot

== ENCOUNTER 2018-06-12 09:01 | Emergency (ER) | payer OTHER, MEDICAID ==
[~2018-06-12] VITALS: Ht 162.6 cm; Wt 99.8 kg
[2018-06-12] MEDS ORDERED: ZOFRAN ODT4 MG PO (10:17)
[2018-06-12 10:24] VITALS: BP 133/81
== END 2018-06-12 10:26 | disposition home or self-care (01) ==
LOC: M.ERS 09:01
DX: R11.0 Nausea (principal); R42 Dizziness and giddiness; I10 Essential (primary) hypertension; M79.7 Fibromyalgia; M79.672 Pain in left foot; G89.29 Other chronic pain

== ENCOUNTER 2018-06-17 10:02 | Emergency (ER) | payer OTHER, MEDICAID ==
[~2018-06-17] VITALS: Ht 162.6 cm; Wt 99.8 kg
[2018-06-17] MEDS ORDERED: [UNRECOGNIZED DRUG - OTHER] MISCELL (11:32)
[2018-06-17] MEDS ORDERED: NAPROSYN500 MG PO (11:33)
[2018-06-17] MEDS ORDERED: ACETAMINOPHEN-1 EAC1 PO (11:33)
[2018-06-17 11:43] VITALS: BP 138/76
== END 2018-06-17 11:43 | disposition home or self-care (01) ==
LOC: M.ERS 10:02
DX: M72.2 Plantar fascial fibromatosis (principal); G89.29 Other chronic pain; M79.672 Pain in left foot; I10 Essential (primary) hypertension; M79.7 Fibromyalgia

== ENCOUNTER → 2018-06-19 | Outpatient (CLI) | payer OTHER, MEDICAID ==
[~2018-06-19] MED LIST changes: +[UNRECOGNIZED DRUG - OTHER] MISCELL
[2018-06-19 10:19] LABS: CHOLESTEROL 215 mg/dL (<200); HDL CHOLESTEROL 47 mg/dL (>40); LDL CHOLESTEROL 151 mg/dL (<100); SERUM ASSESSMENT Clear; TC:HDL 4.6 Ratio (Not establshd); TRIGLYCERIDE 87 mg/dL (<150); VLDL 17 mg/dL (<40)
== END ==
LOC: M.LAB 09:23
PROVIDERS: Nurse Practitioner
DX: E78.00 Pure hypercholesterolemia, unspecified (principal)

== ENCOUNTER → 2018-06-27 | Emergency (ER) | payer OTHER, MEDICAID ==
[~2018-06-27] VITALS: Ht 162.6 cm; Wt 90.7 kg
[2018-06-27 12:08] VITALS: BP 128/77
== END ==
LOC: M.ERS 12:00
DX: J32.0 Chronic maxillary sinusitis (principal); R11.0 Nausea; I10 Essential (primary) hypertension; M79.7 Fibromyalgia; G89.29 Other chronic pain; M79.672 Pain in left foot

== ENCOUNTER 2018-07-11 06:19 | Emergency (ER) | payer OTHER, MEDICAID ==
[~2018-07-11] VITALS: Ht 162.6 cm; Wt 97.5 kg
[2018-07-11 06:45] VITALS: BP 126/66
== END 2018-07-11 06:45 | disposition home or self-care (01) ==
LOC: M.ERS 06:19
DX: J06.9 Acute upper respiratory infection, unspecified (principal); I10 Essential (primary) hypertension; M79.7 Fibromyalgia; G89.29 Other chronic pain; M79.672 Pain in left foot

== ENCOUNTER 2018-07-14 09:20 | Emergency (ER) | payer OTHER, MEDICAID ==
[~2018-07-14] VITALS: Ht 162.6 cm; Wt 97.5 kg
[2018-07-14 10:24] VITALS: BP 119/65
== END 2018-07-14 10:24 | disposition home or self-care (01) ==
LOC: M.ERS 09:20
DX: J06.9 Acute upper respiratory infection, unspecified (principal); I10 Essential (primary) hypertension; M79.7 Fibromyalgia; G89.29 Other chronic pain; M25.572 Pain in left ankle and joints of left foot

== ENCOUNTER 2018-07-22 08:31 | Emergency (ER) | payer OTHER, MEDICAID ==
[~2018-07-22] VITALS: Ht 165.1 cm; Wt 95.3 kg
[2018-07-22] MEDS ORDERED: VIRTUSSIN AC L118 ML PO (08:59)
[2018-07-22 09:04] VITALS: BP 139/83
[2018-07-22] MEDS ORDERED: ZPAK PO (09:04)
== END 2018-07-22 09:05 | disposition home or self-care (01) ==
LOC: M.ERS 08:31
DX: J06.9 Acute upper respiratory infection, unspecified (principal); I10 Essential (primary) hypertension; M79.7 Fibromyalgia; G89.29 Other chronic pain; M79.672 Pain in left foot; Z88.8 Allergy status to other drugs, medicaments and biological substances

== ENCOUNTER 2018-07-28 15:33 | Emergency (ER) | payer OTHER, MEDICAID ==
[~2018-07-28] VITALS: Ht 162.6 cm; Wt 98.9 kg
[~2018-07-28 15:33] MED LIST changes: +VIRTUSSIN AC L118 ML PO
[2018-07-28 17:51] LABS: URINE BILIRUBIN NEGATIVE (Negative); URINE BLOOD 3+ (Negative); URINE CLARITY CLOUDY; URINE COLOR RED; URINE GLUCOSE-RANDOM NEGATIVE (Negative); URINE KETONES NEGATIVE (Negative); URINE LEUKOCYTES-REFLEX TRACE (Negative); URINE PROTEIN 1+ (Negative); URINE SPECIFIC GRAVITY >= 1.030 (1.005-1.030); URINE UROBILINOGEN 0.2 E.U./dl (0.2-1.0)
[2018-07-28 17:52] LABS: URINE NITRITE-REFLEX POSITIVE (Negative)
[2018-07-28 17:56] LABS: MUCUS 0-3 Light strn/LPF (None Seen); SQUAMOUS >10 Many /LPF (0-3); URINE RBC >20 Many /HPF (0-2)
[2018-07-28 17:57] LABS: BACTERIA-REFLEX 1-9 Few /HPF (None Seen); CASTS None Seen /LPF (None Seen); CRYSTALS None Seen /LPF (None Seen); URINE WBC-REFLEX 0-5 Rare /HPF (0-5)
[2018-07-28 18:06] LABS: ABSOLUTE BASOPHILS 0.1 thou/uL (0.0-0.2); ABSOLUTE EOSINOPHILS 0.1 thou/uL (0.0-0.7); ABSOLUTE LYMPHOCYTES 2.5 thou/uL (0.8-5.3); ABSOLUTE MONOCYTES 0.5 thou/uL (0.0-1.2); ABSOLUTE NEUTROPHILS 4.5 thou/uL (1.6-8.1); BASOPHILS 0.8 %; EOSINOPHILS 0.7 %; HEMATOCRIT 35.3 % (37.0-47.0); HEMOGLOBIN 11.6 gm/dL (12.0-15.0); LYMPHOCYTES 32.8 %; MCH 25.9 pg (26.0-34.0); MCHC 32.8 g/dL (28.0-37.0); MCV 79.1 fL (80.0-100.0); MONOCYTES 6.7 %; MPV 7.8 fl. (7.2-11.1); NUCLEATED RBCS 0 /100WBC; PLATELET COUNT* 386 thou/uL (150-400); RBC 4.46 mil/uL (4.20-5.00); RDW-CV 14.2 % (10.5-14.5); WBC 7.7 thou/uL (4.0-11.0)
[2018-07-28] MEDS ORDERED: CIPROFLOXACIN500 M1 PO (18:19)
[2018-07-28 18:24] LABS: ANION GAP 7 mmol/L (7-16); BUN 12 mg/dL (7-18); CALCIUM 8.9 mg/dL (8.5-10.1); CHLORIDE 102 mmol/L (98-107); CO2 29 mmol/L (21-32); CREATININE 0.8 mg/dL (0.6-1.3); GLUCOSE 93 mg/dL (70-99); POTASSIUM 3.9 mmol/L (3.5-5.1); SODIUM 138 mmol/L (136-145)
[2018-07-28 18:31] LABS: ALBUMIN 3.5 g/dL (3.4-5.0); ALKALINE PHOSPHATASE 65 U/L (46-116); SGOT 14 U/L (15-37); SGPT 16 U/L (30-65); TOTAL BILIRUBIN 0.2 mg/dL (<0.1-1.0); TOTAL PROTEIN 7.5 g/dL (6.4-8.2); TROPONIN-I LEVEL <0.06 ng/mL (<0.06)
[2018-07-28 18:43] VITALS: BP 146/85
--- NOTE | 2018-07-29 09:47 | EKG ---
[place] [address] ELECTROCARDIOGRAM REPORT Name: DELMI ONEILL Room: [facility]#: [id number] Admission: 07/28/18 Attend Phys: Discharge: 07/28/18 Date of : [birth year] Report #: [id number] THIS REPORT FOR: //name// [facility] ED Test Date: 2018-07-28 Test Time: 18:37:26 Pat Name: DELMI ONEILL Department: Room: Gender: F Roll Forming Machine Operator: CESAR : 1980 Requested By: Heaven Beckett Order Number: [id number] MD: Tony Oneal Measurements Intervals [place] Rate: 62 P: 36 CT: 174 QRS: 10 QRSD: 97 T: 5 QT: 394 QTc: 400 Interpretive Statements Sinus rhythm Atrial premature complex Probable left ventricular hypertrophy Compared to ECG 04/22/2018 08:58:05 Atrial premature complex(es) now present Electronically Signed On 07-29-2018 9:46:56 JET MAN by Tony Oneal [email or web address] <ELECTRONICALLY SIGNED> By: Tony Oneal MD, FAC 07/29/18 0946 1837 36 Tony Oneal MD, [facility] /EPI
== END 2018-07-28 18:43 | disposition home or self-care (01) ==
LOC: M.ERS 15:33
PROVIDERS: Personal Emergency Response Attendant
DX: N39.0 Urinary tract infection, site not specified (principal); R42 Dizziness and giddiness; I10 Essential (primary) hypertension; M79.7 Fibromyalgia; G89.29 Other chronic pain; M79.672 Pain in left foot

== ENCOUNTER 2018-08-08 13:22 | Emergency (ER) | payer OTHER, MEDICAID ==
[~2018-08-08] VITALS: Ht 162.6 cm; Wt 98.9 kg
[2018-08-08] MEDS ORDERED: ADULT WAL-100 MG/5 M PO (13:46)
[2018-08-08] MEDS ORDERED: VENTOLIN HFA 1818 GM INH (13:46)
[2018-08-08 14:07] VITALS: BP 140/69
== END 2018-08-08 14:09 | disposition home or self-care (01) ==
LOC: M.ERS 13:22
DX: J06.9 Acute upper respiratory infection, unspecified (principal); I10 Essential (primary) hypertension; M79.7 Fibromyalgia; M79.672 Pain in left foot; G89.29 Other chronic pain

== ENCOUNTER 2018-08-12 10:35 | Emergency (ER) | payer OTHER, MEDICAID ==
[~2018-08-12] VITALS: Ht 162.6 cm; Wt 97.1 kg
[~2018-08-12 10:35] MED LIST changes: +ADULT WAL-100 MG/5 M PO; +VENTOLIN HFA 1818 GM INH
[2018-08-12] MEDS ORDERED: FLEXERIL PO (11:12)
[2018-08-12 11:31] VITALS: BP 147/82
== END 2018-08-12 11:32 | disposition home or self-care (01) ==
LOC: M.ERS 10:35
DX: M54.32 Sciatica, left side (principal); I10 Essential (primary) hypertension; M79.7 Fibromyalgia; M79.672 Pain in left foot; G89.29 Other chronic pain

== ENCOUNTER 2018-08-18 09:02 | Emergency (ER) | payer OTHER, MEDICAID ==
[~2018-08-18] VITALS: Ht 162.6 cm; Wt 97.1 kg
[2018-08-18] MEDS ORDERED: TESSALON PERLE100 MG PO (09:31)
[2018-08-18 09:45] VITALS: BP 134/64
== END 2018-08-18 09:46 | disposition home or self-care (01) ==
LOC: M.ERS 09:02
DX: B34.9 Viral infection, unspecified (principal); I10 Essential (primary) hypertension; M79.7 Fibromyalgia; M79.672 Pain in left foot; G89.29 Other chronic pain

== ENCOUNTER 2018-08-25 18:41 | Emergency (ER) | payer OTHER, MEDICAID ==
[~2018-08-25] VITALS: Ht 162.6 cm; Wt 98.4 kg
[2018-08-25 19:02] LABS: URINE BILIRUBIN NEGATIVE (Negative); URINE BLOOD 3+ (Negative); URINE CLARITY CLOUDY; URINE COLOR RED; URINE GLUCOSE-RANDOM NEGATIVE (Negative); URINE KETONES TRACE (Negative); URINE LEUKOCYTES-REFLEX 1+ (Negative); URINE PROTEIN 2+ (Negative); URINE SPECIFIC GRAVITY >= 1.030 (1.005-1.030)
[2018-08-25 19:03] LABS: URINE NITRITE-REFLEX POSITIVE (Negative)
[2018-08-25 19:08] LABS: URINE RBC >20 Many /HPF (0-2)
[2018-08-25 19:09] LABS: CASTS None Seen /LPF (None Seen); MUCUS 0-3 Light strn/LPF (None Seen); SQUAMOUS >10 Many /LPF (0-3)
[2018-08-25 19:10] LABS: BACTERIA-REFLEX 1-9 Few /HPF (None Seen); CRYSTALS None Seen /LPF (None Seen); URINE WBC-REFLEX 0-5 Rare /HPF (0-5)
[2018-08-25 19:23] LABS: ABSOLUTE EOSINOPHILS 0.1 thou/uL (0.0-0.7); ABSOLUTE LYMPHOCYTES 2.6 thou/uL (0.8-5.3); ABSOLUTE MONOCYTES 0.4 thou/uL (0.0-1.2); BASOPHILS 0.5 %; EOSINOPHILS 1.3 %; HEMATOCRIT 34.1 % (37.0-47.0); MCH 25.4 pg (26.0-34.0); MCHC 32.2 g/dL (28.0-37.0); MCV 78.8 fL (80.0-100.0); MONOCYTES 6.9 %; MPV 7.5 fl. (7.2-11.1); NUCLEATED RBCS 0 /100WBC; PLATELET COUNT* 372 thou/uL (150-400); POLYS 49.3 %; RBC 4.32 mil/uL (4.20-5.00); RDW-CV 14.1 % (10.5-14.5); WBC 6.1 thou/uL (4.0-11.0)
[2018-08-25 19:40] LABS: ALBUMIN 3.1 g/dL (3.4-5.0); ALKALINE PHOSPHATASE 59 U/L (46-116); ANION GAP 4 mmol/L (7-16); BUN 10 mg/dL (7-18); CALCIUM 8.6 mg/dL (8.5-10.1); CHLORIDE 105 mmol/L (98-107); CO2 30 mmol/L (21-32); CREATININE 0.9 mg/dL (0.6-1.3); GLUCOSE 96 mg/dL (70-99); POTASSIUM 3.4 mmol/L (3.5-5.1); SGOT 14 U/L (15-37); SGPT 13 U/L (30-65); SODIUM 139 mmol/L (136-145); TOTAL BILIRUBIN 0.2 mg/dL (<0.1-1.0); TROPONIN-I LEVEL <0.06 ng/mL (<0.06)
[2018-08-25] MEDS ORDERED: BACTRIM DS TAB1 EACH PO (20:22)
[2018-08-25] MEDS ORDERED: NAPROSYN500 MG PO (20:23)
[2018-08-25 20:36] VITALS: BP 125/79
--- NOTE | 2018-08-26 17:07 | EKG ---
[place] [address] ELECTROCARDIOGRAM REPORT Name: DELMI ONEILL Room: [facility]#: [id number] Admission: 08/25/18 Attend Phys: Discharge: 08/25/18 Date of : [birth year] Report #: [id number] THIS REPORT FOR: //name// [facility] ED Test Date: 2018-08-25 Test Time: 19:11:03 Pat Name: DELMI ONEILL Department: Room: Gender: F Travel Agent: AVERY : 1980 Requested By: Kae Puente Order Number: [id number] MD: Hernan Lucero Measurements Intervals [place] Rate: 69 P: 27 [place]: 175 QRS: 10 QRSD: 90 T: 0 QT: 385 QTc: 413 Interpretive Statements Sinus rhythm LVH by voltage Compared to ECG 07/28/2018 18:37:26 Atrial premature complex(es) no longer present Electronically Signed On 08-26-2018 17:07:27 CDT by Hernan Lucero [email or web address] <ELECTRONICALLY SIGNED> By: Hernan Lucero MD, [facility] 08/26/18 1707 10 10 Hernan Lucero MD, FACC /EPI
== END 2018-08-25 20:37 | disposition home or self-care (01) ==
LOC: M.ERS 18:41
PROVIDERS: Nurse Practitioner Family
DX: N39.0 Urinary tract infection, site not specified (principal); I10 Essential (primary) hypertension; M79.7 Fibromyalgia; G89.29 Other chronic pain; M79.672 Pain in left foot; Z88.8 Allergy status to other drugs, medicaments and biological substances

== ENCOUNTER 2018-08-31 08:52 | Emergency (ER) | payer OTHER, MEDICAID ==
[~2018-08-31] VITALS: Ht 162.6 cm; Wt 97.5 kg
[~2018-08-31 08:52] MED LIST changes: +BACTRIM DS TAB1 EACH PO
[2018-08-31] MEDS ORDERED: PREDNISONE 20 M20 M1 PO (10:09)
[2018-08-31 10:15] VITALS: BP 119/71
== END 2018-08-31 10:15 | disposition home or self-care (01) ==
LOC: M.ERS 08:52
DX: M72.2 Plantar fascial fibromatosis (principal); G89.29 Other chronic pain; M79.672 Pain in left foot; I10 Essential (primary) hypertension; M79.7 Fibromyalgia

== ENCOUNTER 2018-09-04 15:12 | Emergency (ER) | payer OTHER, MEDICAID ==
[~2018-09-04] VITALS: Ht 162.6 cm; Wt 98.4 kg
[2018-09-04 15:31] LABS: URINE BILIRUBIN NEGATIVE (Negative); URINE BLOOD NEGATIVE (Negative); URINE CLARITY CLEAR; URINE COLOR YELLOW; URINE GLUCOSE-RANDOM NEGATIVE (Negative); URINE KETONES TRACE (Negative); URINE LEUKOCYTES-REFLEX NEGATIVE (Negative); URINE NITRITE-REFLEX NEGATIVE (Negative); URINE PROTEIN TRACE (Negative); URINE SPECIFIC GRAVITY >= 1.030 (1.005-1.030); URINE UROBILINOGEN 0.2 E.U./dl (0.2-1.0)
[2018-09-04 15:42] LABS: ABSOLUTE BASOPHILS 0.1 thou/uL (0.0-0.2); ABSOLUTE LYMPHOCYTES 2.7 thou/uL (0.8-5.3); ABSOLUTE MONOCYTES 0.5 thou/uL (0.0-1.2); ABSOLUTE NEUTROPHILS 3.3 thou/uL (1.6-8.1); BASOPHILS 0.8 %; EOSINOPHILS 0.6 %; HEMATOCRIT 37.1 % (37.0-47.0); HEMOGLOBIN 11.8 gm/dL (12.0-15.0); MCH 25.1 pg (26.0-34.0); MCHC 31.9 g/dL (28.0-37.0); MCV 78.9 fL (80.0-100.0); MONOCYTES 7.7 %; MPV 7.9 fl. (7.2-11.1); NUCLEATED RBCS 0 /100WBC; PLATELET COUNT* 452 thou/uL (150-400); POLYS 49.9 %; RDW-CV 14.6 % (10.5-14.5); WBC 6.5 thou/uL (4.0-11.0)
[2018-09-04 16:00] LABS: ALBUMIN 3.6 g/dL (3.4-5.0); CALCIUM 8.8 mg/dL (8.5-10.1); CREATININE 1.1 mg/dL (0.6-1.3); POTASSIUM 3.7 mmol/L (3.5-5.1); TOTAL BILIRUBIN 0.3 mg/dL (<0.1-1.0); TOTAL PROTEIN 7.6 g/dL (6.4-8.2)
[2018-09-04] MEDS ORDERED: IBUPROFEN 800800 M1 PO (16:05)
[2018-09-04 16:14] VITALS: BP 123/69
== END 2018-09-04 16:15 | disposition home or self-care (01) ==
LOC: M.ERS 15:12
PROVIDERS: Physician Assistant
DX: R10.9 Unspecified abdominal pain (principal); I10 Essential (primary) hypertension; M79.7 Fibromyalgia; G89.29 Other chronic pain; M79.672 Pain in left foot

== ENCOUNTER 2018-09-07 13:45 | Emergency (ER) | payer OTHER, MEDICAID ==
[~2018-09-07] VITALS: Ht 162.6 cm; Wt 97.1 kg
[2018-09-07] MEDS ORDERED: CYCLOBENZAPRINE5 MG PO (14:05)
[2018-09-07 14:25] VITALS: BP 132/57
== END 2018-09-07 14:26 | disposition home or self-care (01) ==
LOC: M.ERS 13:45
DX: M54.5 Low back pain (principal); G89.29 Other chronic pain; M79.671 Pain in right foot; I10 Essential (primary) hypertension; M79.7 Fibromyalgia

== ENCOUNTER 2018-09-18 08:18 | Emergency (ER) | payer OTHER, MEDICAID ==
[~2018-09-18] VITALS: Ht 162.6 cm; Wt 97.1 kg
[~2018-09-18 08:18] MED LIST changes: +CYCLOBENZAPRINE5 MG PO
[2018-09-18] MEDS ORDERED: CLARINEX-D 121 EACH PO (08:59)
[2018-09-18 09:03] VITALS: BP 130/80
== END 2018-09-18 09:01 | disposition home or self-care (01) ==
LOC: M.ERS 08:18
DX: J30.2 Other seasonal allergic rhinitis (principal); I10 Essential (primary) hypertension; M79.7 Fibromyalgia; M79.672 Pain in left foot; G89.29 Other chronic pain

== ENCOUNTER 2018-09-27 06:39 | Emergency (ER) | payer OTHER, MEDICAID ==
[~2018-09-27] VITALS: Ht 162.6 cm; Wt 97.1 kg
[~2018-09-27 06:39] MED LIST changes: +CLARINEX-D 121 EACH PO
[2018-09-27] MEDS ORDERED: PREDNISONE 20 M20 M1 PO (07:23)
[2018-09-27] MEDS ORDERED: TRIAMCINOLONE A15 G1 TOP (07:23)
[2018-09-27 07:38] VITALS: BP 115/77
== END 2018-09-27 07:39 | disposition home or self-care (01) ==
LOC: M.ERS 06:39
DX: L25.9 Unspecified contact dermatitis, unspecified cause (principal); I10 Essential (primary) hypertension; M79.7 Fibromyalgia; M79.672 Pain in left foot; G89.29 Other chronic pain

== ENCOUNTER 2018-09-29 10:22 | Emergency (ER) | payer OTHER, MEDICAID ==
[~2018-09-29] VITALS: Ht 162.6 cm; Wt 97.1 kg
[~2018-09-29 10:22] MED LIST changes: +TRIAMCINOLONE A15 G1 TOP
[2018-09-29 10:27] VITALS: BP 134/78
[2018-09-29] MEDS ORDERED: AFRIN15 ML NASAL (10:44)
== END 2018-09-29 10:50 | disposition home or self-care (01) ==
LOC: M.ERS 10:22
DX: J30.9 Allergic rhinitis, unspecified (principal); I10 Essential (primary) hypertension; M79.7 Fibromyalgia; M79.672 Pain in left foot; G89.29 Other chronic pain

== ENCOUNTER 2018-10-05 09:42 | Emergency (ER) | payer OTHER, MEDICAID ==
[~2018-10-05] VITALS: Ht 162.6 cm; Wt 97.1 kg
[~2018-10-05 09:42] MED LIST changes: +AFRIN15 ML NASAL
[2018-10-05 10:15] VITALS: BP 124/57
== END 2018-10-05 10:15 | disposition home or self-care (01) ==
LOC: M.ERS 09:42
DX: I10 Essential (primary) hypertension (principal); Z76.0 Encounter for issue of repeat prescription; M79.7 Fibromyalgia; M79.672 Pain in left foot; G89.29 Other chronic pain

== ENCOUNTER 2018-10-10 08:37 | Emergency (ER) | payer OTHER, MEDICAID ==
[~2018-10-10] VITALS: Ht 162.6 cm; Wt 103.0 kg
[2018-10-10] MEDS ORDERED: ACETAMINOPHEN-1 EAC1 PO (09:29)
[2018-10-10] MEDS ORDERED: TORADOL 10 MG T10 MG PO (09:29)
[2018-10-10 09:58] VITALS: BP 127/69
== END 2018-10-10 09:58 | disposition home or self-care (01) ==
LOC: M.ERS 08:37
DX: R51 Headache (principal); R42 Dizziness and giddiness; I10 Essential (primary) hypertension; G89.29 Other chronic pain; M79.672 Pain in left foot; M79.7 Fibromyalgia; Z88.8 Allergy status to other drugs, medicaments and biological substances

== ENCOUNTER 2018-10-16 10:42 | Emergency (ER) | payer OTHER, MEDICAID ==
[~2018-10-16] VITALS: Ht 162.6 cm; Wt 90.7 kg
[~2018-10-16 10:42] MED LIST changes: +TORADOL 10 MG T10 MG PO
[2018-10-16] MEDS ORDERED: ZOFRAN ODT4 MG DISSOLVE (11:04)
[2018-10-16 11:10] VITALS: BP 149/88
== END 2018-10-16 11:12 | disposition home or self-care (01) ==
LOC: M.ERS 10:42
DX: R11.0 Nausea (principal); I10 Essential (primary) hypertension; M79.7 Fibromyalgia; G89.29 Other chronic pain; M25.572 Pain in left ankle and joints of left foot; Z88.8 Allergy status to other drugs, medicaments and biological substances

== ENCOUNTER 2018-10-25 23:34 | Emergency (ER) | payer OTHER, MEDICAID ==
[~2018-10-25] VITALS: Ht 162.6 cm; Wt 97.1 kg
[~2018-10-25 23:34] MED LIST changes: +ZOFRAN ODT4 MG DISSOLVE
[2018-10-25] MEDS ORDERED: FLONASE 0.05%50 MCG NASAL (23:44)
[2018-10-25] MEDS ORDERED: ZYRTEC10 M2 PO (23:44)
[2018-10-25] MEDS ORDERED: CLARITIN10 MG PO (23:44)
[2018-10-26] MEDS ORDERED: AUGMENTIN 875-1 EACH PO (00:32)
[2018-10-26 00:36] VITALS: BP 127/74
[2018-10-26] MEDS ORDERED: MEDROLDOSEPACK PO (12:15)
[2018-10-26] MEDS ORDERED: MEDI-MECLIZINE25 MG PO (12:16)
== END 2018-10-26 00:36 | disposition home or self-care (01) ==
LOC: M.ERS 23:34
DX: I10 Essential (primary) hypertension (principal); M79.7 Fibromyalgia; M79.672 Pain in left foot; G89.29 Other chronic pain

== ENCOUNTER 2018-10-26 11:03 | Emergency (ER) | payer OTHER, MEDICAID ==
[~2018-10-26] VITALS: Ht 162.6 cm; Wt 97.1 kg
[~2018-10-26 11:03] MED LIST changes: +ZYRTEC10 M2 PO
[2018-10-26] MEDS ORDERED: MEDROLDOSEPACK PO (12:15)
[2018-10-26] MEDS ORDERED: MEDI-MECLIZINE25 MG PO (12:16)
[2018-10-26 12:20] VITALS: BP 134/80
== END 2018-10-26 12:20 | disposition home or self-care (01) ==
LOC: M.ERS 11:03
DX: J32.0 Chronic maxillary sinusitis (principal); I10 Essential (primary) hypertension; M79.7 Fibromyalgia; M79.672 Pain in left foot; G89.29 Other chronic pain

== ENCOUNTER 2018-11-06 18:56 | Emergency (ER) | payer OTHER, MEDICAID ==
[~2018-11-06] VITALS: Ht 162.6 cm; Wt 98.9 kg
[~2018-11-06 18:56] MED LIST changes: +MEDI-MECLIZINE25 MG PO
[2018-11-06 19:06] VITALS: BP 112/64
[2018-11-06] MEDS ORDERED: SINGULAIR 10 MG10 M1 PO (19:36)
[2018-11-06] MEDS ORDERED: DELSYM COU30 MG/5 M1 PO (19:36)
== END 2018-11-06 19:45 | disposition home or self-care (01) ==
LOC: M.ERS 18:56
DX: J30.2 Other seasonal allergic rhinitis (principal); I10 Essential (primary) hypertension; M79.7 Fibromyalgia; M79.672 Pain in left foot; G89.29 Other chronic pain

== ENCOUNTER 2018-11-11 22:40 | Emergency (ER) | payer OTHER, MEDICAID ==
[~2018-11-11] VITALS: Ht 162.6 cm; Wt 98.0 kg
[~2018-11-11 22:40] MED LIST changes: +DELSYM COU30 MG/5 M1 PO; +SINGULAIR 10 MG10 M1 PO
[2018-11-11 23:25] LABS: URINE BILIRUBIN NEGATIVE (Negative); URINE BLOOD NEGATIVE (Negative); URINE CLARITY CLEAR; URINE COLOR YELLOW; URINE GLUCOSE-RANDOM NEGATIVE (Negative); URINE KETONES NEGATIVE (Negative); URINE LEUKOCYTES-REFLEX NEGATIVE (Negative); URINE NITRITE-REFLEX NEGATIVE (Negative); URINE PROTEIN NEGATIVE (Negative); URINE UROBILINOGEN 0.2 E.U./dl (0.2-1.0)
[2018-11-11 23:27] LABS: ABSOLUTE EOSINOPHILS 0.1 thou/uL (0.0-0.7); ABSOLUTE LYMPHOCYTES 3.3 thou/uL (0.8-5.3); ABSOLUTE MONOCYTES 0.5 thou/uL (0.0-1.2); ABSOLUTE NEUTROPHILS 3.6 thou/uL (1.6-8.1); BASOPHILS 0.6 %; EOSINOPHILS 0.7 %; HEMATOCRIT 37.3 % (37.0-47.0); LYMPHOCYTES 43.5 %; MCHC 32.1 g/dL (28.0-37.0); MCV 77.9 fL (80.0-100.0); MPV 8.6 fl. (7.2-11.1); NUCLEATED RBCS 0 /100WBC; PLATELET COUNT* 377 thou/uL (150-400); POLYS 48.2 %; RBC 4.79 mil/uL (4.20-5.00); RDW-CV 14.6 % (10.5-14.5); WBC 7.5 thou/uL (4.0-11.0)
[2018-11-11 23:31] LABS: ANION GAP 10 mmol/L (7-16); BUN 11 mg/dL (7-18); CHLORIDE 104 mmol/L (98-107); CO2 27 mmol/L (21-32); CREATININE 0.8 mg/dL (0.6-1.3); GLUCOSE 104 mg/dL (70-99); POTASSIUM 3.6 mmol/L (3.5-5.1); SODIUM 141 mmol/L (136-145)
[2018-11-11 23:36] LABS: AMP/METHAMP Negative (Negative); BARBITURATES Negative (Negative); BENZODIAZEPINES Negative (Negative); COCAINE Negative (Negative); METHADONE Negative (Negative); OPIATES Negative (Negative); PCP Negative (Negative); THC Negative (Negative)
[2018-11-11 23:43] LABS: ALBUMIN 3.3 g/dL (3.4-5.0); ALKALINE PHOSPHATASE 74 U/L (46-116); SGOT 12 U/L (15-37); SGPT 16 U/L (30-65); TOTAL BILIRUBIN 0.2 mg/dL (<0.1-1.0); TOTAL PROTEIN 7.4 g/dL (6.4-8.2); TROPONIN-I LEVEL <0.06 ng/mL (<0.06)
[2018-11-11 23:58] VITALS: BP 112/61
--- NOTE | 2018-11-12 10:25 | EKG ---
[place] [address] ELECTROCARDIOGRAM REPORT Name: DELMI ONEILL Room: [facility]#: [id number] Admission: 11/11/18 Attend Phys: Discharge: 11/11/18 Date of : [birth year] Report #: [id number] THIS REPORT FOR: //name// [facility] ED Test Date: 2018-11-11 Test Time: 22:46:44 Pat Name: DELMI ONEILL Department: Room: Gender: F Speech Pathologist: : 1980 Requested By: Heaven Beckett Order Number: [id number] MD: Mukund Frias Measurements Intervals [place] Rate: 73 P: 42 [place]: 192 QRS: 12 QRSD: 97 T: 3 QT: 367 QTc: 405 Interpretive Statements Sinus rhythm Compared to ECG 08/25/2018 19:11:03 no change Electronically Signed On 11-12-2018 10:24:59 CDT by Mukund Frias [email or web address] <ELECTRONICALLY SIGNED> By: Mukund Frias MD, [facility] 11/12/18 1024 2246 2246 Mukund Frias MD, FACC /EPI
== END 2018-11-11 23:59 | disposition home or self-care (01) ==
LOC: M.ERS 22:40
PROVIDERS: Personal Emergency Response Attendant
DX: R00.2 Palpitations (principal); I10 Essential (primary) hypertension; M79.7 Fibromyalgia; G89.29 Other chronic pain; M79.672 Pain in left foot

== ENCOUNTER 2018-11-25 19:03 | Emergency (ER) | payer OTHER, MEDICAID ==
[~2018-11-25] VITALS: Ht 162.6 cm; Wt 97.1 kg
[2018-11-25 19:09] VITALS: BP 136/82
[2018-11-25] MEDS ORDERED: IRON325 PO (19:12)
[2018-11-25] MEDS ORDERED: FLONASE 0.05%50 MCG NASAL (19:13)
[2018-11-25] MEDS ORDERED: ZYRTEC10 M5 PO (19:13)
[2018-11-25] MEDS ORDERED: PREDNISONE 20 M20 MG PO (19:23)
== END 2018-11-25 19:38 | disposition home or self-care (01) ==
LOC: M.ERS 19:03
DX: J30.9 Allergic rhinitis, unspecified (principal); H10.13 Acute atopic conjunctivitis, bilateral; I10 Essential (primary) hypertension; M79.7 Fibromyalgia; M79.672 Pain in left foot; G89.29 Other chronic pain

== ENCOUNTER 2018-12-02 13:48 | Emergency (ER) | payer OTHER, MEDICAID ==
[~2018-12-02] VITALS: Ht 167.6 cm; Wt 90.7 kg
[~2018-12-02 13:48] MED LIST changes: +PREDNISONE 20 M20 MG PO
[2018-12-02 14:22] LABS: URINE BILIRUBIN NEGATIVE (Negative); URINE BLOOD NEGATIVE (Negative); URINE CLARITY CLEAR; URINE COLOR YELLOW; URINE GLUCOSE-RANDOM NEGATIVE (Negative); URINE KETONES NEGATIVE (Negative); URINE LEUKOCYTES-REFLEX TRACE (Negative); URINE NITRITE-REFLEX NEGATIVE (Negative); URINE PROTEIN NEGATIVE (Negative); URINE SPECIFIC GRAVITY >= 1.030 (1.005-1.030); URINE UROBILINOGEN 0.2 E.U./dl (0.2-1.0)
[2018-12-02 14:30] LABS: SQUAMOUS >10 Many /LPF (0-3); URINE WBC-REFLEX 0-5 Rare /HPF (0-5)
[2018-12-02 14:31] LABS: BACTERIA-REFLEX 1-9 Few /HPF (None Seen); CASTS None Seen /LPF (None Seen); CRYSTALS None Seen /LPF (None Seen); URINE RBC 0-2 Rare /HPF (0-2)
[2018-12-02 14:46] VITALS: BP 135/89
== END 2018-12-02 14:47 | disposition home or self-care (01) ==
LOC: M.ERS 13:48
PROVIDERS: Nurse Practitioner Family
DX: R35.0 Frequency of micturition (principal); I10 Essential (primary) hypertension; M79.7 Fibromyalgia; M79.672 Pain in left foot; G89.29 Other chronic pain

== ENCOUNTER 2018-12-10 09:34 | Emergency (ER) | payer OTHER, MEDICAID ==
[~2018-12-10] VITALS: Ht 162.6 cm; Wt 97.1 kg
[2018-12-10] MEDS ORDERED: PREDNISONE 10 M10 M1 PO (09:46)
[2018-12-10] MEDS ORDERED: FLONASE 0.05%50 MCG NASAL (09:46)
[2018-12-10 09:53] VITALS: BP 131/84
== END 2018-12-10 09:54 | disposition home or self-care (01) ==
LOC: M.ERS 09:34
DX: J30.2 Other seasonal allergic rhinitis (principal); I10 Essential (primary) hypertension; M79.7 Fibromyalgia; M79.672 Pain in left foot; G89.29 Other chronic pain

== ENCOUNTER 2018-12-30 10:41 | Emergency (ER) | payer OTHER, MEDICAID ==
[~2018-12-30] VITALS: Ht 162.6 cm; Wt 97.1 kg
[~2018-12-30 10:41] MED LIST changes: +PREDNISONE 10 M10 M1 PO
[2018-12-30 11:06] VITALS: BP 132/70
== END 2018-12-30 11:07 | disposition home or self-care (01) ==
LOC: M.ERS 10:41
DX: J30.2 Other seasonal allergic rhinitis (principal); L53.9 Erythematous condition, unspecified; I10 Essential (primary) hypertension; M79.7 Fibromyalgia

== ENCOUNTER 2019-01-07 07:22 | Emergency (ER) | payer OTHER, MEDICAID ==
[~2019-01-07] VITALS: Ht 162.6 cm; Wt 97.1 kg
[2019-01-07 07:28] VITALS: BP 130/61
== END 2019-01-07 07:38 | disposition home or self-care (01) ==
LOC: M.ERS 07:22
DX: M72.2 Plantar fascial fibromatosis (principal); I10 Essential (primary) hypertension; M79.7 Fibromyalgia

== ENCOUNTER 2019-01-19 18:49 | Emergency (ER) | payer OTHER, MEDICAID ==
[~2019-01-19] VITALS: Ht 162.6 cm; Wt 97.1 kg
[2019-01-19 19:09] VITALS: BP 149/79
== END 2019-01-19 19:11 | disposition home or self-care (01) ==
LOC: M.ERS 18:49
DX: L29.8 Other pruritus (principal); I10 Essential (primary) hypertension; M79.7 Fibromyalgia; M79.672 Pain in left foot; G89.29 Other chronic pain

== ENCOUNTER 2019-01-30 08:35 | Emergency (ER) | payer OTHER, MEDICAID ==
[~2019-01-30] VITALS: Ht 162.6 cm; Wt 97.1 kg
[2019-01-30] MEDS ORDERED: TESSALON PERLE100 MG PO (09:45)
[2019-01-30 10:04] VITALS: BP 113/70
== END 2019-01-30 10:05 | disposition home or self-care (01) ==
LOC: M.ERS 08:35
DX: B34.9 Viral infection, unspecified (principal); I10 Essential (primary) hypertension; M79.7 Fibromyalgia; G89.29 Other chronic pain; M79.672 Pain in left foot

== ENCOUNTER 2019-02-17 08:01 | Emergency (ER) | payer OTHER, MEDICAID ==
[~2019-02-17] VITALS: Ht 162.6 cm; Wt 97.1 kg
[2019-02-17 08:34] VITALS: BP 158/75
== END 2019-02-17 08:34 | disposition home or self-care (01) ==
LOC: M.ERS 08:01
DX: M72.2 Plantar fascial fibromatosis (principal); I10 Essential (primary) hypertension; M79.7 Fibromyalgia; G89.29 Other chronic pain

== ENCOUNTER 2019-03-18 10:03 | Emergency (ER) | payer OTHER, MEDICAID ==
[~2019-03-18] VITALS: Ht 162.6 cm; Wt 97.5 kg
[2019-03-18 10:11] VITALS: BP 142/72
== END 2019-03-18 10:58 | disposition home or self-care (01) ==
LOC: M.ERS 10:03
DX: G89.29 Other chronic pain (principal); M79.672 Pain in left foot; I10 Essential (primary) hypertension; M79.7 Fibromyalgia

== ENCOUNTER 2019-04-05 14:05 | Emergency (ER) | payer OTHER, MEDICAID ==
[~2019-04-05] VITALS: Ht 162.6 cm; Wt 99.8 kg
[2019-04-05] MEDS ORDERED: GABAPENTIN100 MG PO (14:14)
[2019-04-05 15:50] VITALS: BP 167/78
== END 2019-04-05 15:51 | disposition home or self-care (01) ==
LOC: M.ERS 14:05
DX: R51 Headache (principal); I10 Essential (primary) hypertension; M79.7 Fibromyalgia; G89.29 Other chronic pain

== ENCOUNTER 2019-04-09 12:35 | Emergency (ER) | payer OTHER, MEDICAID ==
[~2019-04-09] VITALS: Ht 162.6 cm; Wt 97.5 kg
[~2019-04-09 12:35] MED LIST changes: +GABAPENTIN100 MG PO
[2019-04-09 13:11] LABS: ABSOLUTE LYMPHOCYTES 2.1 thou/uL (0.8-5.3); ABSOLUTE MONOCYTES 0.3 thou/uL (0.0-1.2); ABSOLUTE NEUTROPHILS 2.8 thou/uL (1.6-8.1); BASOPHILS 0.6 %; EOSINOPHILS 0.9 %; HEMATOCRIT 32.8 % (37.0-47.0); HEMOGLOBIN 10.8 gm/dL (12.0-15.0); LYMPHOCYTES 39.3 %; MCH 25.5 pg (26.0-34.0); MCHC 32.9 g/dL (28.0-37.0); MCV 77.7 fL (80.0-100.0); MONOCYTES 6.5 %; MPV 7.5 fl. (7.2-11.1); NUCLEATED RBCS 0 /100WBC; PLATELET COUNT* 398 thou/uL (150-400); POLYS 52.7 %; RBC 4.22 mil/uL (4.20-5.00); RDW-CV 14.4 % (10.5-14.5); WBC 5.3 thou/uL (4.0-11.0)
[2019-04-09 13:17] LABS: CALCIUM 8.7 mg/dL (8.5-10.1); CREATININE 0.9 mg/dL (0.6-1.3); POTASSIUM 3.8 mmol/L (3.5-5.1)
[2019-04-09 13:22] LABS: ALBUMIN 3.4 g/dL (3.4-5.0); TOTAL BILIRUBIN 0.3 mg/dL (<0.1-1.0); TOTAL PROTEIN 7.3 g/dL (6.4-8.2)
[2019-04-09 13:44] VITALS: BP 145/76
== END 2019-04-09 13:44 | disposition home or self-care (01) ==
LOC: M.ERS 12:35
PROVIDERS: Emergency Medicine
DX: I10 Essential (primary) hypertension (principal); M79.7 Fibromyalgia

== ENCOUNTER 2019-04-17 12:37 | Emergency (ER) | payer OTHER, MEDICAID ==
[~2019-04-17] VITALS: Ht 162.6 cm; Wt 97.5 kg
[2019-04-17 13:03] LABS: URINE BILIRUBIN NEGATIVE (Negative); URINE BLOOD 3+ (Negative); URINE CLARITY CLEAR; URINE COLOR YELLOW; URINE GLUCOSE-RANDOM NEGATIVE (Negative); URINE KETONES NEGATIVE (Negative); URINE LEUKOCYTES-REFLEX NEGATIVE (Negative); URINE NITRITE-REFLEX NEGATIVE (Negative); URINE PROTEIN 2+ (Negative); URINE SPECIFIC GRAVITY >= 1.030 (1.005-1.030); URINE UROBILINOGEN 0.2 E.U./dl (0.2-1.0)
[2019-04-17 13:10] LABS: SQUAMOUS 0-3 Few /LPF (0-3); URINE RBC 3-10 Few /HPF (0-2); URINE WBC-REFLEX 0-5 Rare /HPF (0-5)
[2019-04-17 13:11] LABS: BACTERIA-REFLEX 1-9 Few /HPF (None Seen); CASTS None Seen /LPF (None Seen); CRYSTALS None Seen /LPF (None Seen); MUCUS 0-3 Light strn/LPF (None Seen)
[2019-04-17] MEDS ORDERED: EUCERIN CALM I200 M1 TOP ×2 (13:48→13:49)
[2019-04-17] MEDS ORDERED: MACROBID 100 M100 M2 PO ×2 (13:48→13:49)
[2019-04-17] MEDS ORDERED: PYRIDIUM100 M1 PO (13:48)
[2019-04-17 13:54] VITALS: BP 156/82
== END 2019-04-17 13:55 | disposition home or self-care (01) ==
LOC: M.ERS 12:37
PROVIDERS: Nurse Practitioner Family
DX: N39.0 Urinary tract infection, site not specified (principal); L85.3 Xerosis cutis; I10 Essential (primary) hypertension; M79.7 Fibromyalgia; G89.29 Other chronic pain

== ENCOUNTER 2019-04-24 08:48 | Emergency (ER) | payer OTHER, MEDICAID ==
[~2019-04-24] VITALS: Ht 162.6 cm; Wt 99.3 kg
[~2019-04-24 08:48] MED LIST changes: +EUCERIN CALM I200 M1 TOP; +MACROBID 100 M100 M2 PO; +PYRIDIUM100 M1 PO
[2019-04-24] MEDS ORDERED: VISTARIL 25 MG25 M1 PO ×2 (09:49→09:50)
[2019-04-24 09:53] VITALS: BP 149/79
== END 2019-04-24 09:54 | disposition home or self-care (01) ==
LOC: M.ERS 08:48
DX: L29.9 Pruritus, unspecified (principal); I10 Essential (primary) hypertension; M79.7 Fibromyalgia; G89.29 Other chronic pain

== ENCOUNTER 2019-04-28 05:46 | Emergency (ER) | payer OTHER, MEDICAID ==
[~2019-04-28] VITALS: Ht 162.6 cm; Wt 99.8 kg
[~2019-04-28 05:46] MED LIST changes: +VISTARIL 25 MG25 M1 PO
[2019-04-28 06:11] LABS: URINE BILIRUBIN NEGATIVE (Negative); URINE BLOOD NEGATIVE (Negative); URINE CLARITY CLEAR; URINE COLOR YELLOW; URINE GLUCOSE-RANDOM NEGATIVE (Negative); URINE KETONES NEGATIVE (Negative); URINE LEUKOCYTES-REFLEX 1+ (Negative); URINE NITRITE-REFLEX NEGATIVE (Negative); URINE PROTEIN NEGATIVE (Negative); URINE SPECIFIC GRAVITY 1.015 (1.005-1.030); URINE UROBILINOGEN 0.2 E.U./dl (0.2-1.0)
[2019-04-28 06:19] LABS: AMP/METHAMP Negative (Negative); BACTERIA-REFLEX 1-9 Few /HPF (None Seen); BARBITURATES Negative (Negative); BENZODIAZEPINES Negative (Negative); CASTS None Seen /LPF (None Seen); COCAINE Negative (Negative); CRYSTALS None Seen /LPF (None Seen); METHADONE Negative (Negative); MUCUS 0-3 Light strn/LPF (None Seen); OPIATES Negative (Negative); PCP Negative (Negative); SQUAMOUS 4-10 Moderate /LPF (0-3); THC Negative (Negative); URINE RBC 0-2 Rare /HPF (0-2); URINE WBC-REFLEX 6-15 Few /HPF (0-5)
[2019-04-28 06:30] LABS: INFLUENZA A ANTIGEN Negative (Negative); INFLUENZA B ANTIGEN Negative (Negative)
[2019-04-28] MEDS ORDERED: ZOFRAN ODT4 MG PO (06:35)
[2019-04-28 06:43] VITALS: BP 148/62
== END 2019-04-28 06:43 | disposition home or self-care (01) ==
LOC: M.ERS 05:46
PROVIDERS: Personal Emergency Response Attendant
DX: J06.9 Acute upper respiratory infection, unspecified (principal); I10 Essential (primary) hypertension; M79.7 Fibromyalgia; G89.29 Other chronic pain; Z79.899 Other long term (current) drug therapy

== ENCOUNTER 2019-05-03 07:51 | Emergency (ER) | payer OTHER, MEDICAID ==
[~2019-05-03] VITALS: Ht 162.6 cm; Wt 97.5 kg
[2019-05-03 08:19] VITALS: BP 137/80
== END 2019-05-03 08:19 | disposition home or self-care (01) ==
LOC: M.ERS 07:51
DX: R06.00 Dyspnea, unspecified (principal); I10 Essential (primary) hypertension; M79.7 Fibromyalgia; G89.29 Other chronic pain

== ENCOUNTER 2019-05-10 11:16 | Emergency (ER) | payer OTHER, MEDICAID ==
[~2019-05-10] VITALS: Ht 167.6 cm; Wt 90.7 kg
[2019-05-10] MEDS ORDERED: IRON160 M1 PO (11:27)
[2019-05-10 12:55] LABS: CALCIUM 9.1 mg/dL (8.5-10.1); CREATININE 0.9 mg/dL (0.6-1.3); POTASSIUM 4.3 mmol/L (3.5-5.1)
[2019-05-10 13:28] VITALS: BP 135/77
== END 2019-05-10 13:29 | disposition home or self-care (01) ==
LOC: M.ERS 11:16
PROVIDERS: Emergency Medicine Emergency Medical Services
DX: R51 Headache (principal); I10 Essential (primary) hypertension; M79.7 Fibromyalgia; G89.29 Other chronic pain

== ENCOUNTER 2019-05-14 10:20 | Emergency (ER) | payer OTHER, MEDICAID ==
[~2019-05-14] VITALS: Ht 162.6 cm; Wt 99.3 kg
[~2019-05-14 10:20] MED LIST changes: +IRON160 M1 PO
[2019-05-14 10:24] VITALS: BP 197/84
[2019-05-14] MEDS ORDERED: MEDROLDOSEPACK PO (10:28)
[2019-05-14] MEDS ORDERED: NABUMETONE 750750 M1 PO (10:28)
[2019-05-14] MEDS ORDERED: TRAMADOL 50 MG50 MG PO (10:43)
== END 2019-05-14 10:51 | disposition home or self-care (01) ==
LOC: M.ERS 10:20
DX: M72.2 Plantar fascial fibromatosis (principal); R60.0 Localized edema; I10 Essential (primary) hypertension; M79.7 Fibromyalgia; G89.29 Other chronic pain

== ENCOUNTER 2019-05-21 08:26 | Emergency (ER) | payer OTHER, MEDICAID ==
[~2019-05-21] VITALS: Ht 162.6 cm; Wt 97.5 kg
[~2019-05-21 08:26] MED LIST changes: +NABUMETONE 750750 M1 PO
[2019-05-21 08:38] LABS: URINE BILIRUBIN NEGATIVE (Negative); URINE BLOOD NEGATIVE (Negative); URINE CLARITY CLEAR; URINE COLOR YELLOW; URINE GLUCOSE-RANDOM NEGATIVE (Negative); URINE KETONES NEGATIVE (Negative); URINE LEUKOCYTES-REFLEX NEGATIVE (Negative); URINE NITRITE-REFLEX NEGATIVE (Negative); URINE PROTEIN NEGATIVE (Negative); URINE SPECIFIC GRAVITY <= 1.005 (1.005-1.030); URINE UROBILINOGEN 0.2 E.U./dl (0.2-1.0)
[2019-05-21 08:46] VITALS: BP 151/81
== END 2019-05-21 08:47 | disposition home or self-care (01) ==
LOC: M.ERS 08:26
PROVIDERS: Emergency Medicine
DX: J06.9 Acute upper respiratory infection, unspecified (principal); I10 Essential (primary) hypertension; G89.29 Other chronic pain; M79.672 Pain in left foot; M79.7 Fibromyalgia; Z88.8 Allergy status to other drugs, medicaments and biological substances

== ENCOUNTER 2019-05-26 21:17 | Emergency (ER) | payer OTHER, MEDICAID ==
[~2019-05-26] VITALS: Ht 162.6 cm; Wt 99.3 kg
[2019-05-26] MEDS ORDERED: TRAMADOL 50 MG50 MG PO (22:19)
[2019-05-26 22:32] VITALS: BP 135/76
== END 2019-05-26 22:32 | disposition home or self-care (01) ==
LOC: M.ERS 21:17
DX: S90.32XA Contusion of left foot, initial encounter (principal); I10 Essential (primary) hypertension; M79.7 Fibromyalgia; G89.29 Other chronic pain; Z91.048 Other nonmedicinal substance allergy status; W20.8XXA Other cause of strike by thrown, projected or falling object, initial encounter; Y92.89 Other specified places as the place of occurrence of the external cause; Y93.89 Activity, other specified; Y99.8 Other external cause status

== ENCOUNTER 2019-06-06 11:42 | Emergency (ER) | payer OTHER, MEDICAID ==
[~2019-06-06] VITALS: Ht 162.6 cm; Wt 99.3 kg
[2019-06-06 12:29] LABS: INFLUENZA A ANTIGEN Negative (Negative); INFLUENZA B ANTIGEN Negative (Negative)
[2019-06-06] MEDS ORDERED: ZOFRAN ODT4 MG SUBLING (12:56)
[2019-06-06 13:00] VITALS: BP 146/79
== END 2019-06-06 13:01 | disposition home or self-care (01) ==
LOC: M.ERS 11:42
PROVIDERS: Family Medicine
DX: B34.9 Viral infection, unspecified (principal); I10 Essential (primary) hypertension; M79.7 Fibromyalgia; M79.672 Pain in left foot; G89.29 Other chronic pain

== ENCOUNTER 2019-06-14 10:34 | Emergency (ER) | payer OTHER, MEDICAID ==
[~2019-06-14] VITALS: Ht 162.6 cm; Wt 99.3 kg
[~2019-06-14 10:34] MED LIST changes: +ZOFRAN ODT4 MG SUBLING
[2019-06-14] MEDS ORDERED: IBUPROFEN 800800 MG PO (10:58)
[2019-06-14 11:03] VITALS: BP 144/80
== END 2019-06-14 11:04 | disposition home or self-care (01) ==
LOC: M.ERS 10:34
DX: M79.672 Pain in left foot (principal); I10 Essential (primary) hypertension; M79.7 Fibromyalgia; G89.29 Other chronic pain

== ENCOUNTER 2019-06-19 07:04 | Emergency (ER) | payer OTHER, MEDICAID ==
[~2019-06-19] VITALS: Ht 162.6 cm; Wt 99.3 kg
[2019-06-19] MEDS ORDERED: ZOFRAN ODT4 MG DISSOLVE (07:39)
[2019-06-19] MEDS ORDERED: TESSALON PERLE100 MG PO (07:39)
[2019-06-19 07:48] LABS: URINE BILIRUBIN NEGATIVE (Negative); URINE BLOOD NEGATIVE (Negative); URINE CLARITY CLEAR; URINE COLOR YELLOW; URINE GLUCOSE-RANDOM NEGATIVE (Negative); URINE KETONES NEGATIVE (Negative); URINE LEUKOCYTES-REFLEX NEGATIVE (Negative); URINE NITRITE-REFLEX NEGATIVE (Negative); URINE PROTEIN NEGATIVE (Negative); URINE UROBILINOGEN 0.2 E.U./dl (0.2-1.0)
[2019-06-19 08:02] VITALS: BP 143/85
== END 2019-06-19 08:03 | disposition home or self-care (01) ==
LOC: M.ERS 07:04
PROVIDERS: Emergency Medicine Emergency Medical Services
DX: J06.9 Acute upper respiratory infection, unspecified (principal); I10 Essential (primary) hypertension; M79.7 Fibromyalgia; G89.29 Other chronic pain

== ENCOUNTER 2019-06-22 19:15 | Emergency (ER) | payer OTHER, MEDICAID ==
[~2019-06-22] VITALS: Ht 162.6 cm; Wt 99.3 kg
[2019-06-22 20:56] VITALS: BP 157/89
== END 2019-06-22 20:56 | disposition home or self-care (01) ==
LOC: M.ERS 19:15
DX: G89.29 Other chronic pain (principal); M79.672 Pain in left foot; R60.0 Localized edema; I10 Essential (primary) hypertension; M79.7 Fibromyalgia

== ENCOUNTER 2019-06-24 07:43 | Emergency (ER) | payer OTHER, MEDICAID ==
[~2019-06-24] VITALS: Ht 162.6 cm; Wt 99.3 kg
[2019-06-24] MEDS ORDERED: ZYRTEC 10 MG TA10 MG PO (08:40)
[2019-06-24 08:45] VITALS: BP 149/84
== END 2019-06-24 08:46 | disposition home or self-care (01) ==
LOC: M.ERS 07:43
DX: R09.81 Nasal congestion (principal); I10 Essential (primary) hypertension; M79.7 Fibromyalgia

== ENCOUNTER 2019-06-28 09:51 | Emergency (ER) | payer OTHER, MEDICAID ==
[~2019-06-28] VITALS: Ht 162.6 cm; Wt 99.3 kg
[~2019-06-28 09:51] MED LIST changes: +ZYRTEC 10 MG TA10 MG PO
[2019-06-28] MEDS ORDERED: AMOXICILLIN 50500 MG PO (10:19)
[2019-06-28 10:43] VITALS: BP 148/79
== END 2019-06-28 10:43 | disposition home or self-care (01) ==
LOC: M.ERS 09:51
DX: K08.89 Other specified disorders of teeth and supporting structures (principal); I10 Essential (primary) hypertension; M79.7 Fibromyalgia

== ENCOUNTER 2019-06-30 10:53 | Emergency (ER) | payer OTHER, MEDICAID ==
[~2019-06-30] VITALS: Ht 162.6 cm; Wt 99.3 kg
[2019-06-30 11:57] LABS: URINE BILIRUBIN NEGATIVE (Negative); URINE BLOOD 3+ (Negative); URINE CLARITY CLEAR; URINE COLOR YELLOW; URINE GLUCOSE-RANDOM NEGATIVE (Negative); URINE KETONES NEGATIVE (Negative); URINE LEUKOCYTES-REFLEX NEGATIVE (Negative); URINE NITRITE-REFLEX NEGATIVE (Negative); URINE PROTEIN NEGATIVE (Negative); URINE SPECIFIC GRAVITY 1.015 (1.005-1.030); URINE UROBILINOGEN 0.2 E.U./dl (0.2-1.0)
[2019-06-30 12:15] LABS: BACTERIA-REFLEX 1-9 Few /HPF (None Seen); CASTS None Seen /LPF (None Seen); CRYSTALS None Seen /LPF (None Seen); MUCUS None Seen strn/LPF (None Seen); SQUAMOUS >10 Many /LPF (0-3); URINE RBC 0-2 Rare /HPF (0-2); URINE WBC-REFLEX 0-5 Rare /HPF (0-5)
[2019-06-30] MEDS ORDERED: CARAFATE1 GM/10 ML PO (12:37)
[2019-06-30 12:40] VITALS: BP 159/78
== END 2019-06-30 12:44 | disposition home or self-care (01) ==
LOC: M.ERS 10:53
PROVIDERS: Nurse Practitioner Family
DX: R10.13 Epigastric pain (principal); I10 Essential (primary) hypertension; M79.7 Fibromyalgia; G89.29 Other chronic pain

== ENCOUNTER 2019-07-17 08:52 | Emergency (ER) | payer OTHER, MEDICAID ==
[~2019-07-17] VITALS: Ht 162.6 cm; Wt 98.9 kg
[~2019-07-17 08:52] MED LIST changes: +CARAFATE1 GM/10 ML PO
[2019-07-17 09:47] LABS: INFLUENZA A ANTIGEN Negative (Negative); INFLUENZA B ANTIGEN Negative (Negative)
[2019-07-17 10:04] VITALS: BP 146/79
== END 2019-07-17 10:05 | disposition home or self-care (01) ==
LOC: M.ERS 08:52
PROVIDERS: Emergency Medicine Emergency Medical Services
DX: B34.9 Viral infection, unspecified (principal); I10 Essential (primary) hypertension; M79.7 Fibromyalgia; G89.29 Other chronic pain; M79.672 Pain in left foot; Z88.8 Allergy status to other drugs, medicaments and biological substances

== ENCOUNTER 2019-07-20 18:09 | Emergency (ER) | payer OTHER, MEDICAID ==
[~2019-07-20] VITALS: Ht 162.6 cm; Wt 99.3 kg
[2019-07-20 18:51] LABS: URINE BILIRUBIN NEGATIVE (Negative); URINE BLOOD NEGATIVE (Negative); URINE CLARITY CLEAR; URINE COLOR YELLOW; URINE GLUCOSE-RANDOM NEGATIVE (Negative); URINE KETONES NEGATIVE (Negative); URINE LEUKOCYTES-REFLEX NEGATIVE (Negative); URINE NITRITE-REFLEX NEGATIVE (Negative); URINE PROTEIN NEGATIVE (Negative); URINE UROBILINOGEN 0.2 E.U./dl (0.2-1.0)
[2019-07-20 19:31] VITALS: BP 136/76
== END 2019-07-20 19:31 | disposition home or self-care (01) ==
LOC: M.ERS 18:09
PROVIDERS: Nurse Practitioner Family
DX: R30.0 Dysuria (principal); I10 Essential (primary) hypertension; M79.7 Fibromyalgia; G89.29 Other chronic pain

== ENCOUNTER 2019-07-26 08:12 | Emergency (ER) | payer OTHER, MEDICAID ==
[~2019-07-26] VITALS: Ht 162.6 cm; Wt 99.3 kg
[2019-07-26] MEDS ORDERED: MEDROLDOSEPACK PO (08:44)
[2019-07-26] MEDS ORDERED: TORADOL 10 MG T10 MG PO (08:44)
[2019-07-26 09:02] VITALS: BP 129/72
== END 2019-07-26 09:02 | disposition home or self-care (01) ==
LOC: M.ERS 08:12
DX: M72.2 Plantar fascial fibromatosis (principal); M54.5 Low back pain; I10 Essential (primary) hypertension; M79.7 Fibromyalgia; G89.29 Other chronic pain; M79.672 Pain in left foot; Z88.8 Allergy status to other drugs, medicaments and biological substances

== ENCOUNTER 2019-08-04 09:47 | Emergency (ER) | payer OTHER, MEDICAID ==
[~2019-08-04] VITALS: Ht 162.6 cm; Wt 99.3 kg
[2019-08-04] MEDS ORDERED: CLARITIN10 MG PO (10:25)
[2019-08-04] MEDS ORDERED: VISINE ALLERGY15 ML OPHTHALMIC (10:25)
[2019-08-04 10:39] VITALS: BP 136/76
== END 2019-08-04 10:40 | disposition home or self-care (01) ==
LOC: M.ERS 09:47
DX: H10.13 Acute atopic conjunctivitis, bilateral (principal); I10 Essential (primary) hypertension; M79.7 Fibromyalgia; G89.29 Other chronic pain

== ENCOUNTER 2019-08-07 09:15 | Emergency (ER) | payer OTHER, MEDICAID ==
[~2019-08-07] VITALS: Ht 162.6 cm; Wt 99.3 kg
[~2019-08-07 09:15] MED LIST changes: +VISINE ALLERGY15 ML OPHTHALMIC
[2019-08-07 10:16] VITALS: BP 148/69
--- NOTE | 2019-08-07 12:10 | EKG ---
[place] [address] ELECTROCARDIOGRAM REPORT Name: DELMI ONEILL Room: [facility]#: [id number] Admission: 08/07/19 Attend Phys: Discharge: 08/07/19 Date of : [birth year] Date of Service: 08/07/19918 Report #: [id number] THIS REPORT FOR: //name// [facility] ED Test Date: 2019-08-07 Test Time: 09:19:05 Pat Name: DELMI ONEILL Department: Room: Gender: Aerospace Assembler: GOYO : 1980 Requested By: Eddie Veloz Order Number: [id number] MD: Mukund Frias Measurements Intervals [place] Rate: 82 P: 48 HI: 174 QRS: 9 QRSD: 84 T: 0 QT: 375 QTc: 438 Interpretive Statements Sinus rhythm Probable left atrial enlargement Compared to ECG 11/11/2018 22:46:44 No significant changes Electronically Signed On 08-07-2019 12:09:21 CIVIL PROCESS SERVER by Mukund Frias [email or web address] <ELECTRONICALLY SIGNED> By: Mukund Frias MD, [facility] 08/07/19 1209 8 8 Mukund Frias MD, [facility] /EPI
== END 2019-08-07 10:16 | disposition home or self-care (01) ==
LOC: M.ERS 09:15
DX: R00.2 Palpitations (principal); I10 Essential (primary) hypertension; M79.7 Fibromyalgia

== ENCOUNTER 2019-08-11 10:56 | Emergency (ER) | payer OTHER, MEDICAID ==
[~2019-08-11] VITALS: Ht 162.6 cm; Wt 99.3 kg
[2019-08-11] MEDS ORDERED: MEDROLDOSEPACK PO (11:32)
[2019-08-11] MEDS ORDERED: ZANAFLEX4 MG PO (11:32)
[2019-08-11 11:48] VITALS: BP 116/60
== END 2019-08-11 11:49 | disposition home or self-care (01) ==
LOC: M.ERS 10:56
DX: M72.2 Plantar fascial fibromatosis (principal); M54.42 Lumbago with sciatica, left side; I10 Essential (primary) hypertension; M79.7 Fibromyalgia

== ENCOUNTER 2019-08-14 16:18 | Emergency (ER) | payer OTHER, MEDICAID ==
[~2019-08-14] VITALS: Ht 162.6 cm; Wt 99.3 kg
[~2019-08-14 16:18] MED LIST changes: +ZANAFLEX4 MG PO
[2019-08-14] MEDS ORDERED: ZOFRAN ODT4 MG PO (17:52)
[2019-08-14 18:00] VITALS: BP 128/71
== END 2019-08-14 18:00 | disposition home or self-care (01) ==
LOC: M.ERS 16:18
DX: J06.9 Acute upper respiratory infection, unspecified (principal); I10 Essential (primary) hypertension; M79.7 Fibromyalgia; G89.29 Other chronic pain

== ENCOUNTER 2019-08-16 10:22 | Emergency (ER) | payer OTHER, MEDICAID ==
[~2019-08-16] VITALS: Ht 162.6 cm; Wt 99.8 kg
[2019-08-16 11:16] LABS: URINE BILIRUBIN NEGATIVE (Negative); URINE BLOOD NEGATIVE (Negative); URINE CLARITY CLEAR; URINE COLOR YELLOW; URINE GLUCOSE-RANDOM NEGATIVE (Negative); URINE KETONES NEGATIVE (Negative); URINE LEUKOCYTES-REFLEX NEGATIVE (Negative); URINE NITRITE-REFLEX NEGATIVE (Negative); URINE PROTEIN NEGATIVE (Negative); URINE SPECIFIC GRAVITY 1.025 (1.005-1.030); URINE UROBILINOGEN 0.2 E.U./dl (0.2-1.0)
[2019-08-16] MEDS ORDERED: PROMS25 WY RECTAL (11:27)
[2019-08-16] MEDS ORDERED: PHENERGAN 25 MG25 M1 PO (11:27)
[2019-08-16 11:44] LABS: ABSOLUTE LYMPHOCYTES 1.8 thou/uL (0.8-5.3); ABSOLUTE MONOCYTES 0.4 thou/uL (0.0-1.2); ABSOLUTE NEUTROPHILS 3.7 thou/uL (1.6-8.1); BASOPHILS 0.7 %; EOSINOPHILS 0.4 %; HEMATOCRIT 37.1 % (37.0-47.0); HEMOGLOBIN 12.2 gm/dL (12.0-15.0); LYMPHOCYTES 29.7 %; MCH 25.9 pg (26.0-34.0); MCV 78.6 fL (80.0-100.0); MONOCYTES 7.1 %; MPV 7.4 fl. (7.2-11.1); NUCLEATED RBCS 0 /100WBC; PLATELET COUNT* 410 thou/uL (150-400); POLYS 62.1 %; RBC 4.72 mil/uL (4.20-5.00); RDW-CV 14.1 % (10.5-14.5); WBC 5.9 thou/uL (4.0-11.0)
[2019-08-16 11:50] LABS: CALCIUM 8.8 mg/dL (8.5-10.1); CREATININE 0.9 mg/dL (0.6-1.3); POTASSIUM 4.3 mmol/L (3.5-5.1)
[2019-08-16 11:55] LABS: ALBUMIN 3.6 g/dL (3.4-5.0); TOTAL BILIRUBIN 0.2 mg/dL (<0.1-1.0); TOTAL PROTEIN 7.8 g/dL (6.4-8.2)
[2019-08-16 12:43] VITALS: BP 125/53
== END 2019-08-16 12:44 | disposition home or self-care (01) ==
LOC: M.ERS 10:22
PROVIDERS: Nurse Practitioner Family
DX: K52.9 Noninfective gastroenteritis and colitis, unspecified (principal); I10 Essential (primary) hypertension; M79.7 Fibromyalgia; G89.29 Other chronic pain

== ENCOUNTER 2019-08-24 06:48 | Emergency (ER) | payer OTHER, MEDICAID ==
[~2019-08-24] VITALS: Ht 162.6 cm; Wt 99.3 kg
[~2019-08-24 06:48] MED LIST changes: +PROMS25 WY RECTAL
[2019-08-24 07:40] VITALS: BP 133/72
== END 2019-08-24 07:41 | disposition home or self-care (01) ==
LOC: M.ERS 06:48
DX: J30.2 Other seasonal allergic rhinitis (principal); I10 Essential (primary) hypertension; M79.7 Fibromyalgia

== ENCOUNTER 2019-08-31 15:17 | Emergency (ER) | payer OTHER, MEDICAID ==
[~2019-08-31] VITALS: Ht 162.6 cm; Wt 99.3 kg
[2019-08-31] MEDS ORDERED: MUCINEX600 MG PO (15:48)
[2019-08-31] MEDS ORDERED: NASONEX17 GM NASAL (15:54)
[2019-08-31 16:00] VITALS: BP 156/91
== END 2019-08-31 16:00 | disposition home or self-care (01) ==
LOC: M.ERS 15:17
DX: R09.81 Nasal congestion (principal); I10 Essential (primary) hypertension; M79.7 Fibromyalgia; G89.29 Other chronic pain

== ENCOUNTER 2019-09-01 14:49 | Emergency (ER) | payer OTHER, MEDICAID ==
[~2019-09-01] VITALS: Ht 172.7 cm; Wt 88.0 kg
[~2019-09-01 14:49] MED LIST changes: +MUCINEX600 MG PO; +NASONEX17 GM NASAL
[2019-09-01 15:13] VITALS: BP 124/75
== END 2019-09-01 15:14 | disposition home or self-care (01) ==
LOC: M.ERS 14:49
DX: R51 Headache (principal); R42 Dizziness and giddiness; I10 Essential (primary) hypertension; M79.7 Fibromyalgia; G89.29 Other chronic pain

== ENCOUNTER 2019-09-06 13:16 | Emergency (ER) | payer OTHER, MEDICAID ==
[~2019-09-06] VITALS: Ht 162.6 cm; Wt 99.8 kg
[2019-09-06 13:48] LABS: URINE BILIRUBIN NEGATIVE (Negative); URINE BLOOD TRACE (Negative); URINE CLARITY CLEAR; URINE COLOR YELLOW; URINE GLUCOSE-RANDOM NEGATIVE (Negative); URINE KETONES NEGATIVE (Negative); URINE LEUKOCYTES-REFLEX NEGATIVE (Negative); URINE NITRITE-REFLEX NEGATIVE (Negative); URINE PROTEIN NEGATIVE (Negative); URINE SPECIFIC GRAVITY <= 1.005 (1.005-1.030); URINE UROBILINOGEN 0.2 E.U./dl (0.2-1.0)
[2019-09-06] MEDS ORDERED: MICONAZOLE3DAY1 EACH VAG (14:40)
[2019-09-06 14:52] VITALS: BP 144/92
== END 2019-09-06 14:53 | disposition home or self-care (01) ==
LOC: M.ERS 13:16
PROVIDERS: Emergency Medicine Emergency Medical Services
DX: L29.2 Pruritus vulvae (principal); I10 Essential (primary) hypertension; M79.7 Fibromyalgia; G89.29 Other chronic pain

== ENCOUNTER 2019-09-11 19:29 | Emergency (ER) | payer OTHER, MEDICAID ==
[~2019-09-11] VITALS: Ht 162.6 cm; Wt 99.8 kg
[~2019-09-11 19:29] MED LIST changes: +MICONAZOLE3DAY1 EACH VAG
[2019-09-11 19:35] VITALS: BP 153/84
== END 2019-09-11 19:54 | disposition home or self-care (01) ==
LOC: M.ERS 19:29
DX: J34.89 Other specified disorders of nose and nasal sinuses (principal); I10 Essential (primary) hypertension; M79.7 Fibromyalgia; G89.29 Other chronic pain

== ENCOUNTER 2019-09-15 21:16 | Emergency (ER) | payer OTHER, MEDICAID ==
[~2019-09-15] VITALS: Ht 165.1 cm; Wt 99.3 kg
[2019-09-15] MEDS ORDERED: ZOFRAN ODT4 MG PO (21:29)
[2019-09-15] MEDS ORDERED: PRILOSEC OTC20 MG PO (21:33)
[2019-09-15 21:38] VITALS: BP 123/72
== END 2019-09-15 21:39 | disposition home or self-care (01) ==
LOC: M.ERS 21:16
DX: J34.89 Other specified disorders of nose and nasal sinuses (principal)

== ENCOUNTER 2019-09-19 07:13 | Emergency (ER) | payer OTHER, MEDICAID ==
[~2019-09-19] VITALS: Ht 162.6 cm; Wt 99.3 kg
[~2019-09-19 07:13] MED LIST changes: +PRILOSEC OTC20 MG PO
[2019-09-19 07:24] LABS: URINE BILIRUBIN NEGATIVE (Negative); URINE BLOOD NEGATIVE (Negative); URINE CLARITY CLEAR; URINE COLOR YELLOW; URINE GLUCOSE-RANDOM NEGATIVE (Negative); URINE KETONES NEGATIVE (Negative); URINE LEUKOCYTES-REFLEX 1+ (Negative); URINE NITRITE-REFLEX NEGATIVE (Negative); URINE PROTEIN NEGATIVE (Negative); URINE SPECIFIC GRAVITY >= 1.030 (1.005-1.030); URINE UROBILINOGEN 0.2 E.U./dl (0.2-1.0)
[2019-09-19 07:33] LABS: SQUAMOUS >10 Many /LPF (0-3)
[2019-09-19 07:37] LABS: BACTERIA-REFLEX >30 Many /HPF (None Seen); URINE RBC 0-2 Rare /HPF (0-2); URINE WBC-REFLEX 0-5 Rare /HPF (0-5)
[2019-09-19 07:38] LABS: MUCUS >6 Heavy strn/LPF (None Seen)
[2019-09-19 07:39] LABS: CASTS None Seen /LPF (None Seen); CRYSTALS None Seen /LPF (None Seen)
[2019-09-19] MEDS ORDERED: KEFLEX500 M1 PO (08:04)
[2019-09-19] MEDS ORDERED: PYRIDIUM200 MG PO (08:04)
[2019-09-19 08:38] VITALS: BP 131/72
== END 2019-09-19 08:35 | disposition home or self-care (01) ==
LOC: M.ERS 07:13
PROVIDERS: Personal Emergency Response Attendant
DX: N39.0 Urinary tract infection, site not specified (principal); I10 Essential (primary) hypertension; M79.7 Fibromyalgia; G89.29 Other chronic pain

== ENCOUNTER 2019-09-22 08:35 | Emergency (ER) | payer OTHER, MEDICAID ==
[~2019-09-22] VITALS: Ht 162.6 cm; Wt 99.3 kg
[~2019-09-22 08:35] MED LIST changes: +KEFLEX500 M1 PO; +PYRIDIUM200 MG PO
[2019-09-22 09:09] VITALS: BP 115/55
== END 2019-09-22 09:10 | disposition home or self-care (01) ==
LOC: M.ERS 08:35
DX: R42 Dizziness and giddiness (principal); I10 Essential (primary) hypertension; M79.7 Fibromyalgia; M79.672 Pain in left foot; G89.29 Other chronic pain

== ENCOUNTER 2019-09-29 08:49 | Emergency (ER) | payer OTHER, MEDICAID ==
[~2019-09-29] VITALS: Ht 162.6 cm; Wt 99.3 kg
[2019-09-29] MEDS ORDERED: NAPROSYN500 MG PO ×2 (09:07→09:16)
[2019-09-29 09:17] VITALS: BP 156/76
== END 2019-09-29 09:17 | disposition home or self-care (01) ==
LOC: M.ERS 08:49
DX: M72.2 Plantar fascial fibromatosis (principal); I10 Essential (primary) hypertension; M79.7 Fibromyalgia; G89.29 Other chronic pain

== ENCOUNTER 2019-10-01 10:49 | Emergency (ER) | payer OTHER, MEDICAID ==
[~2019-10-01] VITALS: Ht 162.6 cm; Wt 99.3 kg
[2019-10-01] MEDS ORDERED: BENADRYL25 MG PO ×2 (11:41)
[2019-10-01 11:48] VITALS: BP 171/69
== END 2019-10-01 11:57 | disposition home or self-care (01) ==
LOC: M.ERS 10:49
DX: J30.9 Allergic rhinitis, unspecified (principal); I10 Essential (primary) hypertension; M79.7 Fibromyalgia; G89.29 Other chronic pain

== ENCOUNTER 2019-10-04 10:05 | Emergency (ER) | payer OTHER, MEDICAID ==
[~2019-10-04] VITALS: Ht 162.6 cm; Wt 99.3 kg
[~2019-10-04 10:05] MED LIST changes: +BENADRYL25 MG PO
[2019-10-04 10:15] VITALS: BP 139/82
[2019-10-04] MEDS ORDERED: CLEOCIN HCL300 MG PO (10:22)
== END 2019-10-04 11:00 | disposition home or self-care (01) ==
LOC: M.ERS 10:05
DX: K59.00 Constipation, unspecified (principal); I10 Essential (primary) hypertension; M79.7 Fibromyalgia; G89.29 Other chronic pain

== ENCOUNTER 2019-10-13 13:11 | Emergency (ER) | payer OTHER, MEDICAID ==
[~2019-10-13] VITALS: Ht 162.6 cm; Wt 99.8 kg
[~2019-10-13 13:11] MED LIST changes: +CLEOCIN HCL300 MG PO
[2019-10-13 14:11] VITALS: BP 125/65
== END 2019-10-13 14:11 | disposition home or self-care (01) ==
LOC: M.ERS 13:11
DX: M54.5 Low back pain (principal); I10 Essential (primary) hypertension; M79.7 Fibromyalgia; M79.672 Pain in left foot; G89.29 Other chronic pain

== ENCOUNTER 2019-10-14 12:38 | Emergency (ER) | payer OTHER, MEDICAID ==
[~2019-10-14] VITALS: Ht 162.6 cm; Wt 99.8 kg
[2019-10-14 14:43] VITALS: BP 152/74
== END 2019-10-14 14:43 | disposition home or self-care (01) ==
LOC: M.ERS 12:38
DX: M54.5 Low back pain (principal); I10 Essential (primary) hypertension; M79.672 Pain in left foot; M79.7 Fibromyalgia; G89.29 Other chronic pain

== ENCOUNTER 2019-10-17 09:38 | Emergency (ER) | payer OTHER, MEDICAID ==
[~2019-10-17] VITALS: Ht 162.6 cm; Wt 99.8 kg
[2019-10-17] MEDS ORDERED: FLEXERIL PO (10:20)
[2019-10-17] MEDS ORDERED: TRAMADOL 50 MG50 MG PO (10:20)
[2019-10-17 10:22] VITALS: BP 114/52
== END 2019-10-17 10:22 | disposition home or self-care (01) ==
LOC: M.ERS 09:38
DX: S39.012A Strain of muscle, fascia and tendon of lower back, initial encounter (principal); I10 Essential (primary) hypertension; M79.7 Fibromyalgia; G89.29 Other chronic pain; V89.2XXA Person injured in unspecified motor-vehicle accident, traffic, initial encounter; Y93.89 Activity, other specified; Y92.89 Other specified places as the place of occurrence of the external cause; Y99.8 Other external cause status

== ENCOUNTER 2019-10-18 14:00 | Emergency (ER) | payer OTHER, MEDICAID ==
[~2019-10-18] VITALS: Ht 162.6 cm; Wt 99.8 kg
[2019-10-18 16:12] VITALS: BP 125/70
--- NOTE | 2019-10-19 16:35 | EKG ---
[place] [address] ELECTROCARDIOGRAM REPORT Name: DELMI ONEILL Room: [facility]#: [id number] Admission: 10/18/19 Attend Phys: Discharge: 10/18/19 Date of : [birth year] Date of Service: 10/18/19 1403 Report #: [id number] THIS REPORT FOR: //name// [facility] ED Test Date: 2019-10-18 Test Time: 14:03:05 Pat Name: DELMI ONEILL Department: Room: Gender: Guardian Family Member: [facility] : 1980 Requested By: Roberto Sequeira Order Number: [id number] MD: Hernan Lucero Measurements Intervals [place] Rate: 90 P: 70 [place]: 169 QRS: 62 QRSD: 76 T: 57 QT: 344 QTc: 421 Interpretive Statements Sinus rhythm Consider right atrial enlargement Compared to ECG 08/07/2019 09:19:05 No significant changes Electronically Signed On 10-19-2019 16:33:39 CDT by Hernan Lucero [email or web address] <ELECTRONICALLY SIGNED> By: Hernan Lucero MD, [facility] 10/19/19 1633 140 02 Hernan Lucero MD, [facility] /EPI
== END 2019-10-18 16:45 | disposition home or self-care (01) ==
LOC: M.ERS 14:00
DX: R00.2 Palpitations (principal); I10 Essential (primary) hypertension; M79.7 Fibromyalgia; G89.29 Other chronic pain

== ENCOUNTER 2019-10-23 21:20 | Emergency (ER) | payer OTHER, MEDICAID ==
[~2019-10-23] VITALS: Ht 162.6 cm; Wt 99.8 kg
[2019-10-23 21:28] VITALS: BP 150/81
[2019-10-23] MEDS ORDERED: INDOMETHACIN 2525 MG PO ×2 (21:55→21:57)
== END 2019-10-23 22:03 | disposition home or self-care (01) ==
LOC: M.ERS 21:20
DX: M72.2 Plantar fascial fibromatosis (principal); I10 Essential (primary) hypertension; M79.7 Fibromyalgia; G89.29 Other chronic pain

== ENCOUNTER 2019-11-01 09:48 | Emergency (ER) | payer OTHER, MEDICAID ==
[~2019-11-01] VITALS: Ht 162.6 cm; Wt 99.8 kg
[2019-11-01] MEDS ORDERED: CLARITIN10 MG PO (10:06)
[2019-11-01 10:15] VITALS: BP 150/92
== END 2019-11-01 10:15 | disposition home or self-care (01) ==
LOC: M.ERS 09:48
DX: T78.40XA Allergy, unspecified, initial encounter (principal); I10 Essential (primary) hypertension; M79.7 Fibromyalgia; G89.29 Other chronic pain; X58.XXXA Exposure to other specified factors, initial encounter

== ENCOUNTER 2019-11-04 10:07 | Emergency (ER) | payer OTHER, MEDICAID ==
[~2019-11-04] VITALS: Ht 162.6 cm; Wt 99.8 kg
[2019-11-04] MEDS ORDERED: PROMS25 WY RECTAL (11:45)
[2019-11-04 11:59] VITALS: BP 145/90
== END 2019-11-04 11:55 | disposition home or self-care (01) ==
LOC: M.ERS 10:07
DX: R11.0 Nausea (principal); I10 Essential (primary) hypertension; M79.7 Fibromyalgia; M79.672 Pain in left foot; G89.29 Other chronic pain

== ENCOUNTER 2019-11-13 15:52 | Emergency (ER) | payer OTHER, MEDICAID ==
[~2019-11-13] VITALS: Ht 162.6 cm; Wt 99.8 kg
[2019-11-13 18:25] VITALS: BP 140/67
--- NOTE | 2019-11-15 12:09 | EKG ---
[place] [address] ELECTROCARDIOGRAM REPORT Name: DELMI ONEILL Room: [facility]#: [id number] Admission: 11/13/19 Attend Phys: Discharge: 11/13/19 Date of : [birth year] Date of Service: 11/13/19 1603 Report #: [id number] THIS REPORT FOR: //name// [facility] ED Test Date: 2019-11-13 Test Time: 16:03:10 Pat Name: DELMI ONEILL Department: Room: Gender: Legal Nurse Consultant: [facility] : 1980 Requested By: Roberto Sequeira Order Number: [id number] MD: Mukund Frias Measurements Intervals [place] Rate: 87 P: 46 [place]: 173 QRS: 15 QRSD: 82 T: 8 QT: 323 QTc: 389 Interpretive Statements Sinus rhythm LVH by voltage Compared to ECG 10/18/2019 14:03:05 Left ventricular hypertrophy now present Electronically Signed On 11-15-2019 12:07:14 CDT by Mukund Frias [email or web address] <ELECTRONICALLY SIGNED> By: Mukund Frias MD, [facility] 11/15/19 1207 1603 1603 Mukund Frias MD, [facility] /EPI
== END 2019-11-13 18:25 | disposition home or self-care (01) ==
LOC: M.ERS 15:52
DX: R11.0 Nausea (principal); R42 Dizziness and giddiness; I10 Essential (primary) hypertension; M79.7 Fibromyalgia; G89.29 Other chronic pain

== ENCOUNTER 2019-11-21 07:08 | Emergency (ER) | payer OTHER, MEDICAID ==
[~2019-11-21] VITALS: Ht 162.6 cm; Wt 99.8 kg
[2019-11-21] MEDS ORDERED: TRAMADOL 50 MG50 MG PO (08:20)
[2019-11-21] MEDS ORDERED: FLEXERIL PO (08:20)
[2019-11-21 08:25] VITALS: BP 145/87
== END 2019-11-21 08:25 | disposition home or self-care (01) ==
LOC: M.ERS 07:08
DX: M54.5 Low back pain (principal); M54.30 Sciatica, unspecified side; I10 Essential (primary) hypertension; M79.7 Fibromyalgia

== ENCOUNTER 2019-12-02 05:19 | Emergency (ER) | payer OTHER, MEDICAID ==
[~2019-12-02] VITALS: Ht 162.6 cm; Wt 99.8 kg
[2019-12-02 05:26] VITALS: BP 133/74
[2019-12-02] MEDS ORDERED: TRAMADOL 50 MG50 MG PO (05:34)
== END 2019-12-02 05:46 | disposition home or self-care (01) ==
LOC: M.ERS 05:19
DX: H92.02 Otalgia, left ear (principal); I10 Essential (primary) hypertension; M79.7 Fibromyalgia; G89.29 Other chronic pain; Z79.899 Other long term (current) drug therapy

== ENCOUNTER 2019-12-05 08:01 | Emergency (ER) | payer OTHER, MEDICAID ==
[~2019-12-05] VITALS: Ht 162.6 cm; Wt 99.8 kg
[2019-12-05 08:14] VITALS: BP 137/70
[2019-12-05] MEDS ORDERED: IBUPROFEN 800800 M1 PO (08:14)
== END 2019-12-05 08:26 | disposition home or self-care (01) ==
LOC: M.ERS 08:01
DX: M72.2 Plantar fascial fibromatosis (principal); I10 Essential (primary) hypertension; G89.29 Other chronic pain; M79.7 Fibromyalgia; Z79.899 Other long term (current) drug therapy

== ENCOUNTER 2019-12-07 13:19 | Emergency (ER) | payer OTHER, MEDICAID ==
[~2019-12-07] VITALS: Ht 162.6 cm; Wt 99.3 kg
[2019-12-07 14:00] LABS: URINE BILIRUBIN NEGATIVE (Negative); URINE BLOOD NEGATIVE (Negative); URINE CLARITY CLEAR; URINE COLOR YELLOW; URINE GLUCOSE-RANDOM NEGATIVE (Negative); URINE KETONES NEGATIVE (Negative); URINE LEUKOCYTES-REFLEX NEGATIVE (Negative); URINE NITRITE-REFLEX NEGATIVE (Negative); URINE PROTEIN NEGATIVE (Negative); URINE SPECIFIC GRAVITY 1.015 (1.005-1.030); URINE UROBILINOGEN 0.2 E.U./dl (0.2-1.0)
[2019-12-07] MEDS ORDERED: ONDANSETRON HCL4 M2 PO (14:51)
[2019-12-07] MEDS ORDERED: NAPROSYN500 MG PO (14:51)
[2019-12-07 14:57] LABS: ABSOLUTE LYMPHOCYTES 2.3 thou/uL (0.8-5.3); ABSOLUTE MONOCYTES 0.5 thou/uL (0.0-1.2); ABSOLUTE NEUTROPHILS 3.3 thou/uL (1.6-8.1); BASOPHILS 0.6 %; EOSINOPHILS 0.8 %; HEMATOCRIT 36.6 % (37.0-47.0); HEMOGLOBIN 11.9 gm/dL (12.0-15.0); LYMPHOCYTES 36.9 %; MCH 25.8 pg (26.0-34.0); MCHC 32.5 g/dL (28.0-37.0); MCV 79.5 fL (80.0-100.0); MONOCYTES 8.1 %; MPV 7.4 fl. (7.2-11.1); NUCLEATED RBCS 0 /100WBC; PLATELET COUNT* 397 thou/uL (150-400); POLYS 53.6 %; RDW-CV 14.1 % (10.5-14.5); WBC 6.1 thou/uL (4.0-11.0)
[2019-12-07 15:03] LABS: CALCIUM 9.1 mg/dL (8.5-10.1); CREATININE 0.8 mg/dL (0.6-1.3)
[2019-12-07 15:30] VITALS: BP 155/88
== END 2019-12-07 15:30 | disposition home or self-care (01) ==
LOC: M.ERS 13:19
PROVIDERS: Nurse Practitioner Family
DX: R11.0 Nausea (principal); R10.84 Generalized abdominal pain; R19.7 Diarrhea, unspecified; I10 Essential (primary) hypertension; G89.29 Other chronic pain; M79.672 Pain in left foot; M79.7 Fibromyalgia

== ENCOUNTER 2019-12-12 00:31 | Emergency (ER) | payer OTHER, MEDICAID ==
[~2019-12-12] VITALS: Ht 162.6 cm; Wt 99.3 kg
[~2019-12-12 00:31] MED LIST changes: +ONDANSETRON HCL4 M2 PO
[2019-12-12] MEDS ORDERED: MEDROLDOSEPACK PO (01:12)
[2019-12-12] MEDS ORDERED: ULTRAM 50MG TAB50 MG PO (01:12)
[2019-12-12 01:45] VITALS: BP 136/84
== END 2019-12-12 01:46 | disposition home or self-care (01) ==
LOC: M.ERS 00:31
DX: M79.605 Pain in left leg (principal); G89.29 Other chronic pain; I10 Essential (primary) hypertension; M79.7 Fibromyalgia; G62.9 Polyneuropathy, unspecified

== ENCOUNTER 2019-12-14 14:44 | Emergency (ER) | payer OTHER, MEDICAID ==
[~2019-12-14] VITALS: Ht 162.6 cm; Wt 99.3 kg
[~2019-12-14 14:44] MED LIST changes: +ULTRAM 50MG TAB50 MG PO
[2019-12-14] MEDS ORDERED: ONDANSETRON ODT4 MG PO (16:49)
[2019-12-14 17:01] VITALS: BP 126/70
== END 2019-12-14 17:01 | disposition home or self-care (01) ==
LOC: M.ERS 14:44
DX: R11.0 Nausea (principal); R19.7 Diarrhea, unspecified; I10 Essential (primary) hypertension; M79.7 Fibromyalgia; G89.29 Other chronic pain; G62.9 Polyneuropathy, unspecified

== ENCOUNTER 2019-12-17 07:44 | Emergency (ER) | payer OTHER, MEDICAID ==
[~2019-12-17] VITALS: Ht 162.6 cm; Wt 99.3 kg
[~2019-12-17 07:44] MED LIST changes: +ONDANSETRON ODT4 MG PO
[2019-12-17 08:33] VITALS: BP 130/72
== END 2019-12-17 08:34 | disposition home or self-care (01) ==
LOC: M.ERS 07:44
DX: R19.4 Change in bowel habit (principal); I10 Essential (primary) hypertension; M79.7 Fibromyalgia; G89.29 Other chronic pain; G62.9 Polyneuropathy, unspecified

== ENCOUNTER 2019-12-18 23:36 | Emergency (ER) | payer OTHER, MEDICAID ==
[~2019-12-18] VITALS: Ht 162.6 cm; Wt 99.3 kg
[2019-12-19 01:06] LABS: ABSOLUTE EOSINOPHILS 0.1 thou/uL (0.0-0.7); ABSOLUTE LYMPHOCYTES 3.5 thou/uL (0.8-5.3); ABSOLUTE MONOCYTES 0.7 thou/uL (0.0-1.2); ABSOLUTE NEUTROPHILS 5.7 thou/uL (1.6-8.1); BASOPHILS 0.3 %; EOSINOPHILS 0.8 %; HEMATOCRIT 36.8 % (37.0-47.0); HEMOGLOBIN 12.3 gm/dL (12.0-15.0); LYMPHOCYTES 35.3 %; MCH 26.4 pg (26.0-34.0); MCHC 33.4 g/dL (28.0-37.0); MCV 78.9 fL (80.0-100.0); MONOCYTES 6.6 %; MPV 7.6 fl. (7.2-11.1); NUCLEATED RBCS 0 /100WBC; PLATELET COUNT* 372 thou/uL (150-400); RBC 4.66 mil/uL (4.20-5.00); RDW-CV 13.8 % (10.5-14.5)
[2019-12-19 01:20] LABS: CALCIUM 8.8 mg/dL (8.5-10.1); CREATININE 1.1 mg/dL (0.6-1.3); POTASSIUM 3.6 mmol/L (3.5-5.1)
[2019-12-19 01:26] LABS: ALBUMIN 3.3 g/dL (3.4-5.0); TOTAL BILIRUBIN 0.4 mg/dL (<0.1-1.0); TOTAL PROTEIN 7.5 g/dL (6.4-8.2)
[2019-12-19 01:34] LABS: URINE BILIRUBIN NEGATIVE (Negative); URINE BLOOD NEGATIVE (Negative); URINE CLARITY CLEAR; URINE COLOR YELLOW; URINE GLUCOSE-RANDOM NEGATIVE (Negative); URINE KETONES NEGATIVE (Negative); URINE LEUKOCYTES-REFLEX NEGATIVE (Negative); URINE NITRITE-REFLEX NEGATIVE (Negative); URINE PROTEIN NEGATIVE (Negative); URINE SPECIFIC GRAVITY 1.025 (1.005-1.030); URINE UROBILINOGEN 0.2 E.U./dl (0.2-1.0)
[2019-12-19] MEDS ORDERED: CARAFATE 1 GM TA1 GM PO (01:48)
[2019-12-19 01:58] VITALS: BP 132/70
== END 2019-12-19 01:59 | disposition home or self-care (01) ==
LOC: M.ERS 23:36
PROVIDERS: Emergency Medicine
DX: K21.9 Gastro-esophageal reflux disease without esophagitis (principal); I10 Essential (primary) hypertension; M79.7 Fibromyalgia; G62.9 Polyneuropathy, unspecified; G89.29 Other chronic pain

== ENCOUNTER 2019-12-22 21:49 | Emergency (ER) | payer OTHER, MEDICAID ==
[~2019-12-22] VITALS: Ht 162.6 cm; Wt 99.3 kg
[~2019-12-22 21:49] MED LIST changes: +CARAFATE 1 GM TA1 GM PO
[2019-12-22 22:54] LABS: URINE BILIRUBIN NEGATIVE (Negative); URINE BLOOD 3+ (Negative); URINE CLARITY TURBID; URINE COLOR RED; URINE GLUCOSE-RANDOM NEGATIVE (Negative); URINE KETONES NEGATIVE (Negative); URINE LEUKOCYTES-REFLEX NEGATIVE (Negative); URINE NITRITE-REFLEX NEGATIVE (Negative); URINE PROTEIN 2+ (Negative); URINE SPECIFIC GRAVITY >= 1.030 (1.005-1.030)
[2019-12-22 22:55] LABS: SQUAMOUS 0-3 Few /LPF (0-3)
[2019-12-22 22:56] LABS: BACTERIA-REFLEX 1-9 Few /HPF (None Seen); CASTS None Seen /LPF (None Seen); CRYSTALS None Seen /LPF (None Seen); URINE RBC >20 Many /HPF (0-2); URINE WBC-REFLEX 0-5 Rare /HPF (0-5)
[2019-12-22 23:24] LABS: CALCIUM 8.7 mg/dL (8.5-10.1); POTASSIUM 3.8 mmol/L (3.5-5.1)
[2019-12-23] MEDS ORDERED: LIDODERM1 EACH TRANSDERM (00:10)
[2019-12-23 00:24] VITALS: BP 110/70
[2019-12-23] MEDS ORDERED: TYLENOL WITH CO1 TA1 PO (19:54)
== END 2019-12-23 00:24 | disposition home or self-care (01) ==
LOC: M.ERS 21:49
PROVIDERS: Emergency Medicine Emergency Medical Services
DX: R10.84 Generalized abdominal pain (principal); M54.9 Dorsalgia, unspecified; I10 Essential (primary) hypertension; M79.7 Fibromyalgia; G89.29 Other chronic pain; G62.9 Polyneuropathy, unspecified

== ENCOUNTER 2019-12-23 17:45 | Emergency (ER) | payer OTHER, MEDICAID ==
[~2019-12-23] VITALS: Ht 162.6 cm; Wt 99.8 kg
[~2019-12-23 17:45] MED LIST changes: +LIDODERM1 EACH TRANSDERM
[2019-12-23 19:37] LABS: URINE BILIRUBIN NEGATIVE (Negative); URINE BLOOD 3+ (Negative); URINE CLARITY TURBID; URINE COLOR RED; URINE GLUCOSE-RANDOM NEGATIVE (Negative); URINE KETONES NEGATIVE (Negative); URINE LEUKOCYTES-REFLEX NEGATIVE (Negative); URINE NITRITE-REFLEX NEGATIVE (Negative); URINE PROTEIN 1+ (Negative); URINE SPECIFIC GRAVITY >= 1.030 (1.005-1.030)
[2019-12-23 19:45] LABS: MUCUS 4-6 Moderate strn/LPF (None Seen); URINE RBC >20 Many /HPF (0-2)
[2019-12-23 19:46] LABS: BACTERIA-REFLEX None Seen /HPF (None Seen); CASTS None Seen /LPF (None Seen); CRYSTALS None Seen /LPF (None Seen); SQUAMOUS 4-10 Moderate /LPF (0-3); URINE WBC-REFLEX 0-5 Rare /HPF (0-5)
[2019-12-23] MEDS ORDERED: TYLENOL WITH CO1 TA1 PO (19:54)
[2019-12-23 20:16] VITALS: BP 145/79
== END 2019-12-23 20:16 | disposition home or self-care (01) ==
LOC: M.ERS 17:45
PROVIDERS: Physician Assistant
DX: R10.9 Unspecified abdominal pain (principal); M54.9 Dorsalgia, unspecified; I10 Essential (primary) hypertension; M79.7 Fibromyalgia; G89.29 Other chronic pain; G62.9 Polyneuropathy, unspecified

== ENCOUNTER 2019-12-29 06:29 | Emergency (ER) | payer OTHER, MEDICAID ==
[~2019-12-29] VITALS: Ht 162.6 cm; Wt 99.8 kg
[~2019-12-29 06:29] MED LIST changes: +TYLENOL WITH CO1 TA1 PO
[2019-12-29 08:18] VITALS: BP 132/82
== END 2019-12-29 08:20 | disposition home or self-care (01) ==
LOC: M.ERS 06:29
DX: J30.9 Allergic rhinitis, unspecified (principal); I10 Essential (primary) hypertension; M79.7 Fibromyalgia; G62.9 Polyneuropathy, unspecified

== ENCOUNTER 2020-01-04 11:42 | Emergency (ER) | payer OTHER, MEDICAID ==
[~2020-01-04] VITALS: Ht 162.6 cm; Wt 99.8 kg
[2020-01-04] MEDS ORDERED: NEURONTIN100 MG PO (11:48)
[2020-01-04] MEDS ORDERED: SUDAFED 12 HOU120 MG PO (13:51)
[2020-01-04 13:59] VITALS: BP 120/78
== END 2020-01-04 13:59 | disposition home or self-care (01) ==
LOC: M.ERS 11:42
DX: R09.81 Nasal congestion (principal); I10 Essential (primary) hypertension; M79.7 Fibromyalgia; G89.29 Other chronic pain; G62.9 Polyneuropathy, unspecified

== ENCOUNTER 2020-01-06 08:34 | Emergency (ER) | payer OTHER, MEDICAID ==
[~2020-01-06] VITALS: Ht 162.6 cm; Wt 99.8 kg
[~2020-01-06 08:34] MED LIST changes: +NEURONTIN100 MG PO; +SUDAFED 12 HOU120 MG PO
[2020-01-06 09:35] VITALS: BP 146/73
== END 2020-01-06 09:36 | disposition home or self-care (01) ==
LOC: M.ERS 08:34
DX: K59.00 Constipation, unspecified (principal); I10 Essential (primary) hypertension; M79.7 Fibromyalgia; G89.29 Other chronic pain; G62.9 Polyneuropathy, unspecified

== ENCOUNTER 2020-01-07 12:40 | Emergency (ER) | payer OTHER, MEDICAID ==
[~2020-01-07] VITALS: Ht 162.6 cm; Wt 99.8 kg
[2020-01-07 13:26] VITALS: BP 139/70
== END 2020-01-07 13:27 | disposition home or self-care (01) ==
LOC: M.ERS 12:40
DX: R09.81 Nasal congestion (principal); I10 Essential (primary) hypertension; M79.7 Fibromyalgia; G62.9 Polyneuropathy, unspecified; Z79.899 Other long term (current) drug therapy

== ENCOUNTER 2020-01-10 10:04 | Emergency (ER) | payer OTHER, MEDICAID ==
[~2020-01-10] VITALS: Ht 162.6 cm; Wt 99.8 kg
[2020-01-10 10:41] LABS: HEMATOCRIT 37.1 % (37.0-47.0); HEMOGLOBIN 12.2 gm/dL (12.0-15.0); MCH 25.8 pg (26.0-34.0); MCHC 32.8 g/dL (28.0-37.0); MCV 78.8 fL (80.0-100.0); MPV 8.1 fl. (7.2-11.1); RBC 4.71 mil/uL (4.20-5.00); RDW-CV 13.8 % (10.5-14.5); WBC 5.6 thou/uL (4.0-11.0)
[2020-01-10 10:46] LABS: CALCIUM 8.6 mg/dL (8.5-10.1); CREATININE 0.9 mg/dL (0.6-1.3); POTASSIUM 3.8 mmol/L (3.5-5.1)
[2020-01-10 11:09] VITALS: BP 131/76
--- NOTE | 2020-01-11 10:41 | EKG ---
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: [employer] : 1980 Requested By: Jose Tolbert Order Number: [id number] MD: Mukund Frias Measurements Intervals [place] Rate: 76 P: 55 TN: 176 QRS: 28 QRSD: 83 T: 20 QT: 360 QTc: 405 Interpretive Statements Sinus rhythm Compared to ECG 11/13/2019 16:03:10 Left ventricular hypertrophy no longer present Electronically Signed On 01-11-2020 10:41:02 CDT by Mukund Frias [email or web address] <ELECTRONICALLY SIGNED> By: Mukund Frias MD, [facility] 01/11/20 1041 1026 1026 Mukund Frias MD, [facility] /EPI
--- NOTE | 2020-01-11 15:20 | EKG ---
[place] [address] ELECTROCARDIOGRAM REPORT Name: DELMI ONEILL Room: [facility]#: [id number] Admission: 01/10/20 Attend Phys: Discharge: 01/10/20 Date of : [birth year] Date of Service: 01/10/20 1026 Report #: [id number] THIS REPORT FOR: //name// [facility] ED Test Date: 2020-01-10 Test Time: 10:26:20 Pat Name: DELMI ONEILL Department: Room: Gender: Labor Relations Supervisor: [facility] : 1980 Requested By: Jose Tolbert Order Number: [id number] Radha MD: Mukund Frias Measurements Intervals [place] Rate: 76 P: 55 [place]: 176 QRS: 28 QRSD: 83 T: 20 QT: 360 QTc: 405 Interpretive Statements Sinus rhythm Compared to ECG 11/13/2019 16:03:10 Left ventricular hypertrophy no longer present Electronically Signed On 01-11-2020 15:20:35 CDT by Mukund Frias [email or web address] <ELECTRONICALLY SIGNED> By: Mukund Frias MD, [facility] 01/11/20 1520 1026 1026 Mukund Frias MD, [facility] /EPI
== END 2020-01-10 11:11 | disposition home or self-care (01) ==
LOC: M.ERS 10:04
PROVIDERS: Emergency Medicine Emergency Medical Services
DX: R42 Dizziness and giddiness (principal); I10 Essential (primary) hypertension; M79.7 Fibromyalgia; G89.29 Other chronic pain; G62.9 Polyneuropathy, unspecified

== ENCOUNTER 2020-01-15 08:00 | Emergency (ER) | payer OTHER, MEDICAID ==
[~2020-01-15] VITALS: Ht 162.6 cm; Wt 99.8 kg
[2020-01-15] MEDS ORDERED: NORCO 5-325 TA1 EAC2 PO (08:58)
[2020-01-15] MEDS ORDERED: NAPROSYN500 MG PO (08:58)
[2020-01-15 09:14] VITALS: BP 145/65
== END 2020-01-15 09:14 | disposition home or self-care (01) ==
LOC: M.ERS 08:00
DX: M72.2 Plantar fascial fibromatosis (principal); I10 Essential (primary) hypertension; M79.7 Fibromyalgia; G62.9 Polyneuropathy, unspecified; G89.29 Other chronic pain

== ENCOUNTER 2020-01-17 20:46 | Emergency (ER) | payer OTHER, MEDICAID ==
[~2020-01-17] VITALS: Ht 162.6 cm; Wt 99.8 kg
[~2020-01-17 20:46] MED LIST changes: +NORCO 5-325 TA1 EAC2 PO
[2020-01-17 21:10] LABS: URINE BILIRUBIN NEGATIVE (Negative); URINE BLOOD TRACE (Negative); URINE CLARITY CLEAR; URINE COLOR YELLOW; URINE GLUCOSE-RANDOM NEGATIVE (Negative); URINE KETONES NEGATIVE (Negative); URINE LEUKOCYTES-REFLEX NEGATIVE (Negative); URINE NITRITE-REFLEX NEGATIVE (Negative); URINE PROTEIN NEGATIVE (Negative); URINE SPECIFIC GRAVITY 1.025 (1.005-1.030); URINE UROBILINOGEN 0.2 E.U./dl (0.2-1.0)
[2020-01-17 21:41] VITALS: BP 126/51
== END 2020-01-17 21:41 | disposition home or self-care (01) ==
LOC: M.ERS 20:46
PROVIDERS: Family Medicine
DX: R30.0 Dysuria (principal); R35.0 Frequency of micturition; I10 Essential (primary) hypertension; M79.7 Fibromyalgia; G62.9 Polyneuropathy, unspecified; G89.29 Other chronic pain

== ENCOUNTER 2020-01-21 08:28 | Emergency (ER) | payer OTHER, MEDICAID ==
[~2020-01-21] VITALS: Ht 162.6 cm; Wt 99.8 kg
[2020-01-21] MEDS ORDERED: MEDROLDOSEPACK PO (10:11)
[2020-01-21 10:15] VITALS: BP 139/92
== END 2020-01-21 10:15 | disposition home or self-care (01) ==
LOC: M.ERS 08:28
DX: M72.2 Plantar fascial fibromatosis (principal); I10 Essential (primary) hypertension; M79.7 Fibromyalgia; G89.29 Other chronic pain; G62.9 Polyneuropathy, unspecified

== ENCOUNTER 2020-01-24 07:15 | Emergency (ER) | payer OTHER, MEDICAID ==
[~2020-01-24] VITALS: Ht 162.6 cm; Wt 99.8 kg
[2020-01-24 08:04] VITALS: BP 156/87
== END 2020-01-24 08:04 | disposition home or self-care (01) ==
LOC: M.ERS 07:15
DX: J30.9 Allergic rhinitis, unspecified (principal); M79.7 Fibromyalgia; I10 Essential (primary) hypertension; G89.29 Other chronic pain; G62.9 Polyneuropathy, unspecified

== ENCOUNTER 2020-01-24 21:49 | Emergency (ER) | payer OTHER, MEDICAID ==
[~2020-01-24] VITALS: Ht 162.6 cm; Wt 99.8 kg
[2020-01-24 23:32] VITALS: BP 144/68
== END 2020-01-24 23:34 | disposition home or self-care (01) ==
LOC: M.ERS 21:49
DX: R51 Headache (principal); I10 Essential (primary) hypertension; M79.7 Fibromyalgia; G62.9 Polyneuropathy, unspecified; G89.29 Other chronic pain

== ENCOUNTER 2020-01-28 14:18 | Emergency (ER) | payer OTHER, MEDICAID ==
[~2020-01-28] VITALS: Ht 162.5 cm; Wt 99.8 kg
[2020-01-28] MEDS ORDERED: ZOFRAN ODT4 MG DISSOLVE (14:33)
[2020-01-28 14:59] VITALS: BP 154/70
== END 2020-01-28 15:00 | disposition home or self-care (01) ==
LOC: M.ERS 14:18
DX: J32.9 Chronic sinusitis, unspecified (principal); R11.0 Nausea; I10 Essential (primary) hypertension; M79.7 Fibromyalgia; G62.9 Polyneuropathy, unspecified

== ENCOUNTER 2020-01-30 09:10 | Emergency (ER) | payer OTHER, MEDICAID ==
[~2020-01-30] VITALS: Ht 165.1 cm; Wt 99.8 kg
[2020-01-30 10:35] VITALS: BP 121/82
== END 2020-01-30 10:35 | disposition home or self-care (01) ==
LOC: M.ERS 09:10
DX: J32.9 Chronic sinusitis, unspecified (principal); I10 Essential (primary) hypertension; M79.7 Fibromyalgia; G62.9 Polyneuropathy, unspecified; G89.29 Other chronic pain; Z20.828 Contact with and (suspected) exposure to other viral communicable diseases

== ENCOUNTER 2020-02-02 13:19 | Emergency (ER) | payer OTHER, MEDICAID ==
[~2020-02-02] VITALS: Ht 162.6 cm; Wt 99.8 kg
[2020-02-02 14:15] LABS: URINE BILIRUBIN NEGATIVE (Negative); URINE BLOOD 1+ (Negative); URINE CLARITY CLEAR; URINE COLOR YELLOW; URINE GLUCOSE-RANDOM NEGATIVE (Negative); URINE KETONES NEGATIVE (Negative); URINE LEUKOCYTES-REFLEX NEGATIVE (Negative); URINE NITRITE-REFLEX NEGATIVE (Negative); URINE PROTEIN NEGATIVE (Negative); URINE UROBILINOGEN 0.2 E.U./dl (0.2-1.0)
[2020-02-02 14:33] LABS: SQUAMOUS >10 Many /LPF (0-3); URINE WBC-REFLEX 0-5 Rare /HPF (0-5)
[2020-02-02 14:34] LABS: BACTERIA-REFLEX >30 Many /HPF (None Seen); CASTS None Seen /LPF (None Seen); CRYSTALS None Seen /LPF (None Seen); URINE RBC 0-2 Rare /HPF (0-2)
[2020-02-02] MEDS ORDERED: KEFLEX500 M1 PO (14:45)
[2020-02-02 14:51] VITALS: BP 148/73
== END 2020-02-02 14:52 | disposition home or self-care (01) ==
LOC: M.ERS 13:19
PROVIDERS: Nurse Practitioner Family
DX: N39.0 Urinary tract infection, site not specified (principal); I10 Essential (primary) hypertension; M79.7 Fibromyalgia; G89.29 Other chronic pain; G62.9 Polyneuropathy, unspecified

== ENCOUNTER 2020-02-05 18:06 | Emergency (ER) | payer OTHER, MEDICAID ==
[~2020-02-05] VITALS: Ht 162.6 cm; Wt 99.8 kg
[2020-02-05] MEDS ORDERED: NABUMETONE 750750 M1 PO (18:43)
[2020-02-05] MEDS ORDERED: ZANAFLEX4 MG PO (18:43)
[2020-02-05 19:19] VITALS: BP 127/63
== END 2020-02-05 19:20 | disposition home or self-care (01) ==
LOC: M.ERS 18:06
DX: I10 Essential (primary) hypertension (principal); M72.2 Plantar fascial fibromatosis; M79.7 Fibromyalgia; G62.9 Polyneuropathy, unspecified; G89.29 Other chronic pain; Z79.899 Other long term (current) drug therapy

== ENCOUNTER 2020-02-09 02:40 | Emergency (ER) | payer OTHER, MEDICAID ==
[~2020-02-09] VITALS: Ht 162.6 cm; Wt 99.8 kg
[2020-02-09] MEDS ORDERED: MUPIROCIN15 GM TOP (03:38)
[2020-02-09 03:49] VITALS: BP 113/72
== END 2020-02-09 03:50 | disposition home or self-care (01) ==
LOC: M.ERS 02:40
DX: R22.0 Localized swelling, mass and lump, head (principal); J34.89 Other specified disorders of nose and nasal sinuses; I10 Essential (primary) hypertension; M79.7 Fibromyalgia; G89.29 Other chronic pain; G62.9 Polyneuropathy, unspecified; Z79.899 Other long term (current) drug therapy

== ENCOUNTER 2020-02-12 08:40 | Emergency (ER) | payer OTHER, MEDICAID ==
[~2020-02-12] VITALS: Ht 162.6 cm; Wt 99.8 kg
[~2020-02-12 08:40] MED LIST changes: +MUPIROCIN15 GM TOP
[2020-02-12 08:50] VITALS: BP 152/91
[2020-02-13] MEDS ORDERED: PREDNISONE50 MG PO (08:23)
== END 2020-02-12 10:00 | disposition left against medical advice (07) ==
LOC: M.ERS 08:40
DX: Z53.21 Procedure and treatment not carried out due to patient leaving prior to being seen by health care provider (principal)

== ENCOUNTER 2020-02-13 07:34 | Emergency (ER) | payer OTHER, MEDICAID ==
[~2020-02-13] VITALS: Ht 162.6 cm; Wt 99.8 kg
[2020-02-13] MEDS ORDERED: PREDNISONE50 MG PO (08:23)
[2020-02-13 08:41] VITALS: BP 142/72
== END 2020-02-13 08:42 | disposition home or self-care (01) ==
LOC: M.ERS 07:34
DX: M54.32 Sciatica, left side (principal); M72.2 Plantar fascial fibromatosis; I10 Essential (primary) hypertension; M79.7 Fibromyalgia; G89.29 Other chronic pain; G62.9 Polyneuropathy, unspecified

== ENCOUNTER 2020-02-18 07:59 | Emergency (ER) | payer OTHER, MEDICAID ==
[~2020-02-18] VITALS: Ht 162.6 cm; Wt 99.8 kg
[2020-02-18] MEDS ORDERED: CLARITIN10 MG PO (09:00)
[2020-02-18 09:26] VITALS: BP 130/72
[2020-02-18] MEDS ORDERED: ONDANSETRON HCL4 M2 PO (16:50)
[2020-02-19] MEDS ORDERED: TESSALON PERLE100 MG PO (12:45)
== END 2020-02-18 09:35 | disposition home or self-care (01) ==
LOC: M.ERS 07:59
DX: R09.81 Nasal congestion (principal); I10 Essential (primary) hypertension; M79.7 Fibromyalgia; Z79.899 Other long term (current) drug therapy

== ENCOUNTER 2020-02-18 14:28 | Emergency (ER) | payer OTHER, MEDICAID ==
[~2020-02-18] VITALS: Ht 162.6 cm; Wt 99.8 kg
[2020-02-18] MEDS ORDERED: ONDANSETRON HCL4 M2 PO (16:50)
[2020-02-18 17:40] VITALS: BP 137/85
[2020-02-19] MEDS ORDERED: TESSALON PERLE100 MG PO (12:45)
== END 2020-02-18 17:41 | disposition home or self-care (01) ==
LOC: M.ERS 14:28
DX: R11.0 Nausea (principal); R09.89 Other specified symptoms and signs involving the circulatory and respiratory systems; I10 Essential (primary) hypertension; M79.7 Fibromyalgia; G89.29 Other chronic pain; G62.9 Polyneuropathy, unspecified; Z79.899 Other long term (current) drug therapy

== ENCOUNTER 2020-02-19 11:08 | Emergency (ER) | payer OTHER, MEDICAID ==
[~2020-02-19] VITALS: Ht 162.6 cm; Wt 99.8 kg
[2020-02-19] MEDS ORDERED: TESSALON PERLE100 MG PO (12:45)
[2020-02-19 13:00] VITALS: BP 133/69
== END 2020-02-19 13:01 | disposition home or self-care (01) ==
LOC: M.ERS 11:08
DX: R09.81 Nasal congestion (principal); I10 Essential (primary) hypertension; M79.7 Fibromyalgia; G62.9 Polyneuropathy, unspecified; G89.29 Other chronic pain; Z79.899 Other long term (current) drug therapy

== ENCOUNTER 2020-02-25 07:30 | Emergency (ER) | payer OTHER, MEDICAID ==
[~2020-02-25] VITALS: Ht 162.6 cm; Wt 99.8 kg
[2020-02-25 08:16] LABS: URINE BILIRUBIN NEGATIVE (Negative); URINE BLOOD NEGATIVE (Negative); URINE CLARITY CLEAR; URINE COLOR YELLOW; URINE GLUCOSE-RANDOM NEGATIVE (Negative); URINE KETONES NEGATIVE (Negative); URINE LEUKOCYTES-REFLEX NEGATIVE (Negative); URINE NITRITE-REFLEX NEGATIVE (Negative); URINE PROTEIN NEGATIVE (Negative); URINE UROBILINOGEN 0.2 E.U./dl (0.2-1.0)
[2020-02-25] MEDS ORDERED: FLEXERIL PO (08:36)
[2020-02-25] MEDS ORDERED: TRAMADOL 50 MG50 MG PO (08:36)
[2020-02-25 08:42] VITALS: BP 150/67
== END 2020-02-25 08:42 | disposition home or self-care (01) ==
LOC: M.ERS 07:30
PROVIDERS: Family Medicine
DX: M54.9 Dorsalgia, unspecified (principal); I10 Essential (primary) hypertension; M79.7 Fibromyalgia; G62.9 Polyneuropathy, unspecified

== ENCOUNTER 2020-02-27 10:50 | Emergency (ER) | payer OTHER, MEDICAID ==
[~2020-02-27] VITALS: Ht 162.6 cm; Wt 99.8 kg
[2020-02-27] MEDS ORDERED: ZOFRAN ODT4 MG DISSOLVE (11:06)
[2020-02-27 11:19] VITALS: BP 150/73
== END 2020-02-27 11:20 | disposition home or self-care (01) ==
LOC: M.ERS 10:50
DX: B34.9 Viral infection, unspecified (principal); I10 Essential (primary) hypertension; M79.7 Fibromyalgia; G62.9 Polyneuropathy, unspecified

== ENCOUNTER 2020-03-03 13:57 | Emergency (ER) | payer OTHER, MEDICAID ==
[~2020-03-03] VITALS: Ht 162.6 cm; Wt 99.8 kg
[2020-03-03] MEDS ORDERED: MELOXICAM15 MG PO ×2 (14:24→14:26)
[2020-03-03 14:46] VITALS: BP 135/52
== END 2020-03-03 14:47 | disposition home or self-care (01) ==
LOC: M.ERS 13:57
DX: M72.2 Plantar fascial fibromatosis (principal); I10 Essential (primary) hypertension; M79.7 Fibromyalgia; G89.29 Other chronic pain; G62.9 Polyneuropathy, unspecified

== ENCOUNTER 2020-03-05 07:38 | Emergency (ER) | payer OTHER, MEDICAID ==
[~2020-03-05] VITALS: Ht 162.6 cm; Wt 99.8 kg
[~2020-03-05 07:38] MED LIST changes: +MELOXICAM15 MG PO
[2020-03-05] MEDS ORDERED: TRAMADOL 50 MG50 MG PO (08:05)
[2020-03-05 08:11] VITALS: BP 154/79
== END 2020-03-05 08:12 | disposition home or self-care (01) ==
LOC: M.ERS 07:38
DX: G89.29 Other chronic pain (principal); M79.672 Pain in left foot; I10 Essential (primary) hypertension; M79.7 Fibromyalgia; G62.9 Polyneuropathy, unspecified

== ENCOUNTER 2020-03-09 11:13 | Emergency (ER) | payer OTHER, MEDICAID ==
[~2020-03-09] VITALS: Ht 162.6 cm; Wt 99.8 kg
[2020-03-09 11:44] LABS: HEMATOCRIT 37.5 % (37.0-47.0); HEMOGLOBIN 12.2 gm/dL (12.0-15.0); MCH 25.3 pg (26.0-34.0); MCHC 32.6 g/dL (28.0-37.0); MCV 77.5 fL (80.0-100.0); MPV 7.7 fl. (7.2-11.1); RBC 4.84 mil/uL (4.20-5.00); RDW-CV 14.1 % (10.5-14.5); WBC 7.4 thou/uL (4.0-11.0)
[2020-03-09 11:54] LABS: CALCIUM 8.7 mg/dL (8.5-10.1); CREATININE 0.9 mg/dL (0.6-1.3); POTASSIUM 3.5 mmol/L (3.5-5.1)
[2020-03-09 11:58] LABS: ALBUMIN 3.6 g/dL (3.4-5.0); TOTAL BILIRUBIN 0.4 mg/dL (<0.1-1.0); TOTAL PROTEIN 7.7 g/dL (6.4-8.2)
[2020-03-09] MEDS ORDERED: OMEPRAZOLE 20 M20 M1 PO (12:02)
[2020-03-09 12:19] VITALS: BP 148/77
--- NOTE | 2020-03-09 17:13 | EKG ---
[place] [address] ELECTROCARDIOGRAM REPORT Name: DELMI ONEILL Room: [facility]#: [id number] Admission: 03/09/20 Attend Phys: Discharge: 03/09/20 Date of : [birth year] Date of Service: 03/09/20 1135 Report #: [id number] THIS REPORT FOR: //name// [facility] ED Test Date: 2020-03-09 Test Time: 11:35:11 Pat Name: DELMI ONEILL Department: Room: Gender: Cotton Program Technician: : 1980 Requested By: Jose Tolbert Order Number: [id number] MD: Jesus Manuel Sosa Measurements Intervals [place] Rate: 72 P: 34 [place]: 172 QRS: -1 QRSD: 81 T: -1 QT: 370 QTc: 405 Interpretive Statements Sinus rhythm Left ventricular hypertrophy Compared to ECG 01/10/2020 10:26:20 Left ventricular hypertrophy now present Electronically Signed On 03-09-2020 17:12:49 CDT by Jesus Manuel Sosa [email or web address] <ELECTRONICALLY SIGNED> By: Jesus Manuel Sosa MD, [facility] 03/09/20 1712 1135 1135 Jesus Manuel Sosa MD, [facility] /EPI
== END 2020-03-09 12:19 | disposition home or self-care (01) ==
LOC: M.ERS 11:13
PROVIDERS: Emergency Medicine Emergency Medical Services
DX: R10.13 Epigastric pain (principal); I10 Essential (primary) hypertension; M79.7 Fibromyalgia; Z79.899 Other long term (current) drug therapy

== ENCOUNTER 2020-03-18 07:37 | Emergency (ER) | payer OTHER, MEDICAID ==
[~2020-03-18] VITALS: Ht 162.6 cm; Wt 99.8 kg
[~2020-03-18 07:37] MED LIST changes: +OMEPRAZOLE 20 M20 M1 PO
[2020-03-18] MEDS ORDERED: VOLTAREN GEL 1100 G2 TOP (07:49)
[2020-03-18 08:00] VITALS: BP 152/89
== END 2020-03-18 08:00 | disposition home or self-care (01) ==
LOC: M.ERS 07:37
DX: M72.2 Plantar fascial fibromatosis (principal); I10 Essential (primary) hypertension; M79.7 Fibromyalgia; G62.9 Polyneuropathy, unspecified; Z79.899 Other long term (current) drug therapy; Z91.048 Other nonmedicinal substance allergy status

== ENCOUNTER 2020-03-20 08:26 | Emergency (ER) | payer OTHER, MEDICAID ==
[~2020-03-20] VITALS: Ht 162.6 cm; Wt 99.8 kg
[~2020-03-20 08:26] MED LIST changes: +VOLTAREN GEL 1100 G2 TOP
[2020-03-20 09:36] VITALS: BP 131/84
== END 2020-03-20 09:37 | disposition home or self-care (01) ==
LOC: M.ERS 08:26
DX: B34.9 Viral infection, unspecified (principal); I10 Essential (primary) hypertension; M79.7 Fibromyalgia; G62.9 Polyneuropathy, unspecified

== ENCOUNTER 2020-03-26 08:57 | Emergency (ER) | payer OTHER, MEDICAID ==
[~2020-03-26] VITALS: Ht 162.6 cm; Wt 98.9 kg
[2020-03-26 10:28] VITALS: BP 148/72
== END 2020-03-26 10:29 | disposition home or self-care (01) ==
LOC: M.ERS 08:57
DX: H93.8X1 Other specified disorders of right ear (principal); R09.81 Nasal congestion; I10 Essential (primary) hypertension; M79.7 Fibromyalgia; G62.9 Polyneuropathy, unspecified; G89.29 Other chronic pain

== ENCOUNTER 2020-03-28 16:09 | Emergency (ER) | payer OTHER, MEDICAID ==
[~2020-03-28] VITALS: Ht 162.6 cm; Wt 98.9 kg
[2020-03-28 16:57] VITALS: BP 169/79
== END 2020-03-28 16:51 ==
LOC: M.ERS 16:09
DX: H92.03 Otalgia, bilateral (principal); I10 Essential (primary) hypertension; M79.7 Fibromyalgia; G89.29 Other chronic pain; G62.9 Polyneuropathy, unspecified

== ENCOUNTER 2020-03-31 05:10 | Emergency (ER) | payer OTHER, MEDICAID ==
[~2020-03-31] VITALS: Ht 162.6 cm; Wt 98.9 kg
[2020-03-31 05:16] VITALS: BP 115/75
[2020-03-31] MEDS ORDERED: FLEXERIL PO (06:16)
[2020-03-31] MEDS ORDERED: TRAMADOL 50 MG50 MG PO (06:16)
== END 2020-03-31 06:22 | disposition home or self-care (01) ==
LOC: M.ERS 05:10
DX: M54.2 Cervicalgia (principal); H92.02 Otalgia, left ear; I10 Essential (primary) hypertension; M79.7 Fibromyalgia; Z79.899 Other long term (current) drug therapy

== ENCOUNTER 2020-04-01 09:43 | Emergency (ER) | payer OTHER, MEDICAID ==
[~2020-04-01] VITALS: Ht 162.6 cm; Wt 95.3 kg
[2020-04-01 09:45] VITALS: BP 151/79
== END 2020-04-01 10:20 | disposition home or self-care (01) ==
LOC: M.ERS 09:43
DX: M79.644 Pain in right finger(s) (principal); I10 Essential (primary) hypertension; M79.7 Fibromyalgia; Z79.899 Other long term (current) drug therapy

== ENCOUNTER 2020-04-03 13:13 | Emergency (ER) | payer OTHER, MEDICAID ==
[~2020-04-03] VITALS: Ht 162.6 cm; Wt 98.9 kg
[2020-04-03] MEDS ORDERED: CORICIDIN HBP1 EACH PO (14:49)
[2020-04-03 15:01] VITALS: BP 151/97
== END 2020-04-03 15:02 | disposition home or self-care (01) ==
LOC: M.ERS 13:13
DX: J30.9 Allergic rhinitis, unspecified (principal); H92.02 Otalgia, left ear; I10 Essential (primary) hypertension; M79.7 Fibromyalgia; G89.29 Other chronic pain; G62.9 Polyneuropathy, unspecified

== ENCOUNTER 2020-04-05 08:57 | Emergency (ER) | payer OTHER, MEDICAID ==
[~2020-04-05] VITALS: Ht 157.5 cm; Wt 98.9 kg
[~2020-04-05 08:57] MED LIST changes: +CORICIDIN HBP1 EACH PO
[2020-04-05 09:13] VITALS: BP 152/84
== END 2020-04-05 09:16 | disposition home or self-care (01) ==
LOC: M.ERS 08:57
DX: I10 Essential (primary) hypertension (principal); M79.7 Fibromyalgia; G89.29 Other chronic pain; G62.9 Polyneuropathy, unspecified

== ENCOUNTER 2020-04-08 07:35 | Emergency (ER) | payer OTHER, MEDICAID ==
[~2020-04-08] VITALS: Ht 162.6 cm; Wt 98.9 kg
[2020-04-08 07:44] VITALS: BP 151/71
[2020-04-08] MEDS ORDERED: ZOFRAN ODT4 MG SUBLING (08:22)
[2020-04-11] MEDS ORDERED: IBUPROFEN 800800 MG PO (08:16)
[2020-04-11] MEDS ORDERED: CYCLOBENZAPRINE5 MG PO (08:16)
[2020-04-11] MEDS ORDERED: LIDOCAINE15 GM TOP (08:16)
== END 2020-04-08 08:29 | disposition home or self-care (01) ==
LOC: M.ERS 07:35
DX: R11.0 Nausea (principal); Z76.0 Encounter for issue of repeat prescription; I10 Essential (primary) hypertension; M79.7 Fibromyalgia; Z79.899 Other long term (current) drug therapy

== ENCOUNTER 2020-04-15 07:00 | Emergency (ER) | payer OTHER, MEDICAID ==
[~2020-04-15] VITALS: Ht 162.6 cm; Wt 98.9 kg
[~2020-04-15 07:00] MED LIST changes: +LIDOCAINE15 GM TOP
[2020-04-15 08:23] VITALS: BP 136/86
== END 2020-04-15 08:23 | disposition home or self-care (01) ==
LOC: M.ERS 07:00
DX: M79.672 Pain in left foot (principal); I10 Essential (primary) hypertension; M79.7 Fibromyalgia; Z79.899 Other long term (current) drug therapy

== ENCOUNTER 2020-04-18 18:52 | Emergency (ER) | payer OTHER, MEDICAID ==
[~2020-04-18] VITALS: Ht 162.6 cm; Wt 98.9 kg
[2020-04-18 21:50] VITALS: BP 159/87
== END 2020-04-18 21:51 | disposition home or self-care (01) ==
LOC: M.ERS 18:52
DX: I10 Essential (primary) hypertension (principal); M79.7 Fibromyalgia; G62.9 Polyneuropathy, unspecified; E66.9 Obesity, unspecified; Z68.37 Body mass index [BMI] 37.0-37.9, adult; Z79.899 Other long term (current) drug therapy; Z91.048 Other nonmedicinal substance allergy status

== ENCOUNTER 2020-04-20 08:07 | Emergency (ER) | payer OTHER, MEDICAID ==
[~2020-04-20] VITALS: Ht 162.6 cm; Wt 98.9 kg
[2020-04-20] MEDS ORDERED: ZOFRAN ODT4 MG SUBLING (08:28)
[2020-04-20 08:38] VITALS: BP 156/83
== END 2020-04-20 08:38 | disposition home or self-care (01) ==
LOC: M.ERS 08:07
DX: R11.0 Nausea (principal); I10 Essential (primary) hypertension; M79.7 Fibromyalgia; G89.29 Other chronic pain; G62.9 Polyneuropathy, unspecified

== ENCOUNTER 2020-04-25 07:20 | Emergency (ER) | payer OTHER, MEDICAID ==
[~2020-04-25] VITALS: Ht 165.1 cm; Wt 98.9 kg
[2020-04-25 07:39] LABS: URINE BILIRUBIN NEGATIVE (Negative); URINE BLOOD NEGATIVE (Negative); URINE CLARITY CLEAR; URINE COLOR YELLOW; URINE GLUCOSE-RANDOM NEGATIVE (Negative); URINE KETONES NEGATIVE (Negative); URINE LEUKOCYTES-REFLEX NEGATIVE (Negative); URINE NITRITE-REFLEX NEGATIVE (Negative); URINE PROTEIN NEGATIVE (Negative); URINE SPECIFIC GRAVITY >= 1.030 (1.005-1.030); URINE UROBILINOGEN 0.2 E.U./dl (0.2-1.0)
[2020-04-25 07:59] VITALS: BP 148/72
[2020-04-26] MEDS ORDERED: MACROBID 100 M100 M1 PO (08:00)
== END 2020-04-25 08:00 | disposition home or self-care (01) ==
LOC: M.ERS 07:20
PROVIDERS: Family Medicine
DX: M54.5 Low back pain (principal); R35.0 Frequency of micturition; I10 Essential (primary) hypertension; M79.7 Fibromyalgia; G62.9 Polyneuropathy, unspecified; Z88.8 Allergy status to other drugs, medicaments and biological substances

== ENCOUNTER 2020-04-26 06:28 | Emergency (ER) | payer OTHER, MEDICAID ==
[~2020-04-26] VITALS: Ht 162.6 cm; Wt 98.9 kg
[2020-04-26 06:35] VITALS: BP 152/75
[2020-04-26 07:25] LABS: URINE BILIRUBIN NEGATIVE (Negative); URINE BLOOD 3+ (Negative); URINE CLARITY CLEAR; URINE COLOR YELLOW; URINE GLUCOSE-RANDOM NEGATIVE (Negative); URINE KETONES NEGATIVE (Negative); URINE LEUKOCYTES-REFLEX NEGATIVE (Negative); URINE NITRITE-REFLEX NEGATIVE (Negative); URINE PROTEIN 1+ (Negative); URINE SPECIFIC GRAVITY 1.025 (1.005-1.030); URINE UROBILINOGEN 0.2 E.U./dl (0.2-1.0)
[2020-04-26 07:51] LABS: CASTS None Seen /LPF (None Seen); CRYSTALS None Seen /LPF (None Seen); SQUAMOUS 0-3 Few /LPF (0-3); URINE RBC 0-2 Rare /HPF (0-2); URINE WBC-REFLEX 6-15 Few /HPF (0-5)
[2020-04-26] MEDS ORDERED: MACROBID 100 M100 M1 PO (08:00)
== END 2020-04-26 08:05 | disposition home or self-care (01) ==
LOC: M.ERS 06:28
PROVIDERS: Emergency Medicine
DX: N39.0 Urinary tract infection, site not specified (principal); I10 Essential (primary) hypertension; M79.7 Fibromyalgia; G62.9 Polyneuropathy, unspecified; Z79.899 Other long term (current) drug therapy; Z91.048 Other nonmedicinal substance allergy status

== ENCOUNTER 2020-04-30 14:26 | Emergency (ER) | payer OTHER, MEDICAID ==
[~2020-04-30] VITALS: Ht 162.6 cm; Wt 98.9 kg
[~2020-04-30 14:26] MED LIST changes: +MACROBID 100 M100 M1 PO
[2020-04-30] MEDS ORDERED: FLONASE 0.05%50 MCG NASAL (14:42)
[2020-04-30] MEDS ORDERED: ZOFRAN ODT4 MG DISSOLVE (14:42)
[2020-04-30 14:45] VITALS: BP 198/88
== END 2020-04-30 14:47 | disposition home or self-care (01) ==
LOC: M.ERS 14:26
DX: J32.9 Chronic sinusitis, unspecified (principal); I10 Essential (primary) hypertension; M79.7 Fibromyalgia; Z79.899 Other long term (current) drug therapy

== ENCOUNTER 2020-05-04 14:33 | Emergency (ER) | payer OTHER, MEDICAID ==
[~2020-05-04] VITALS: Ht 162.6 cm; Wt 98.0 kg
[2020-05-04] MEDS ORDERED: NABUMETONE 750750 M1 PO (15:20)
[2020-05-04] MEDS ORDERED: PREDNISONE 10 M10 MG PO (15:20)
[2020-05-04 15:30] VITALS: BP 153/85
== END 2020-05-04 15:30 | disposition home or self-care (01) ==
LOC: M.ERS 14:33
DX: H92.02 Otalgia, left ear (principal); J30.9 Allergic rhinitis, unspecified; I10 Essential (primary) hypertension; M79.7 Fibromyalgia

== ENCOUNTER 2020-05-08 09:49 | Emergency (ER) | payer OTHER, MEDICAID ==
[~2020-05-08] VITALS: Ht 162.6 cm; Wt 98.0 kg
[~2020-05-08 09:49] MED LIST changes: +PREDNISONE 10 M10 MG PO
[2020-05-08] MEDS ORDERED: ZOFRAN ODT4 MG SUBLING (10:21)
[2020-05-08] MEDS ORDERED: TRAMADOL 50 MG50 MG PO (10:21)
[2020-05-08] MEDS ORDERED: AMOXICILLIN 50500 MG PO (10:21)
[2020-05-08 10:34] VITALS: BP 155/92
== END 2020-05-08 10:34 | disposition home or self-care (01) ==
LOC: M.ERS 09:49
DX: K02.9 Dental caries, unspecified (principal); I10 Essential (primary) hypertension; M79.7 Fibromyalgia; G62.9 Polyneuropathy, unspecified; G89.29 Other chronic pain

== ENCOUNTER 2020-05-13 07:00 | Emergency (ER) | payer OTHER, MEDICAID ==
[~2020-05-13] VITALS: Ht 162.6 cm; Wt 117.9 kg
[2020-05-13 07:08] VITALS: BP 143/86
[2020-05-13] MEDS ORDERED: IBUPROFEN 800800 M1 PO (07:25)
[2020-05-13] MEDS ORDERED: NORCO 5-325 TA1 EAC2 PO ×2 (07:25→07:29)
== END 2020-05-13 07:37 | disposition home or self-care (01) ==
LOC: M.ERS 07:00
DX: M72.2 Plantar fascial fibromatosis (principal); I10 Essential (primary) hypertension; M79.7 Fibromyalgia; G89.29 Other chronic pain; G62.9 Polyneuropathy, unspecified

== ENCOUNTER 2020-05-17 16:13 | Emergency (ER) | payer OTHER, MEDICAID ==
[~2020-05-17] VITALS: Ht 162.6 cm; Wt 98.0 kg
[2020-05-17] MEDS ORDERED: KEFLEX500 M1 PO (17:15)
[2020-05-17] MEDS ORDERED: CENTANY30 GM NASAL (17:15)
[2020-05-17 17:27] VITALS: BP 168/87
== END 2020-05-17 17:30 | disposition home or self-care (01) ==
LOC: M.ERS 16:13
DX: L08.89 Other specified local infections of the skin and subcutaneous tissue (principal); I10 Essential (primary) hypertension; M79.7 Fibromyalgia; G62.9 Polyneuropathy, unspecified; Z79.899 Other long term (current) drug therapy

== ENCOUNTER 2020-05-22 08:07 | Emergency (ER) | payer OTHER, MEDICAID ==
[~2020-05-22] VITALS: Ht 162.6 cm; Wt 98.0 kg
[~2020-05-22 08:07] MED LIST changes: +CENTANY30 GM NASAL
[2020-05-22] MEDS ORDERED: MEDROLDOSEPACK PO (09:07)
[2020-05-22] MEDS ORDERED: TRAMADOL 50 MG50 MG PO (09:07)
[2020-05-22] MEDS ORDERED: ZOFRAN ODT4 MG SUBLING (09:07)
[2020-05-22 09:16] VITALS: BP 145/94
== END 2020-05-22 09:10 | disposition home or self-care (01) ==
LOC: M.ERS 08:07
DX: M79.672 Pain in left foot (principal); I10 Essential (primary) hypertension; M79.7 Fibromyalgia; G89.29 Other chronic pain; G62.9 Polyneuropathy, unspecified

== ENCOUNTER 2020-05-25 18:52 | Emergency (ER) | payer OTHER, MEDICAID ==
[~2020-05-25] VITALS: Ht 162.6 cm; Wt 98.0 kg
[2020-05-25 19:12] VITALS: BP 182/89
[2020-05-25] MEDS ORDERED: CLARITIN10 M3 PO ×2 (19:21→19:22)
[2020-05-25] MEDS ORDERED: FLONASE 0.05%50 MCG NARES ×2 (19:21→19:22)
== END 2020-05-25 19:33 | disposition home or self-care (01) ==
LOC: M.ERS 18:52
DX: H92.02 Otalgia, left ear (principal); I10 Essential (primary) hypertension; M79.7 Fibromyalgia; G89.29 Other chronic pain; G62.9 Polyneuropathy, unspecified

== ENCOUNTER 2020-05-28 06:40 | Emergency (ER) | payer OTHER, MEDICAID ==
[~2020-05-28] VITALS: Ht 167.6 cm; Wt 98.0 kg
[~2020-05-28 06:40] MED LIST changes: +CLARITIN10 M3 PO; +FLONASE 0.05%50 MCG NARES
[2020-05-28] MEDS ORDERED: IBUPROFEN 800800 MG PO (07:56)
[2020-05-28 08:07] VITALS: BP 153/84
[2020-05-30] MEDS ORDERED: ZOFRAN ODT4 MG SUBLING (21:38)
[2020-05-30] MEDS ORDERED: TRAMADOL 50 MG50 MG PO (21:38)
[2020-05-30] MEDS ORDERED: FLEXERIL PO (21:38)
== END 2020-05-28 08:08 | disposition home or self-care (01) ==
LOC: M.ERS 06:40
DX: S02.5XXA Fracture of tooth (traumatic), initial encounter for closed fracture (principal); H92.02 Otalgia, left ear; K02.9 Dental caries, unspecified; I10 Essential (primary) hypertension; M79.7 Fibromyalgia; G89.29 Other chronic pain; G62.9 Polyneuropathy, unspecified; X58.XXXA Exposure to other specified factors, initial encounter; Y93.89 Activity, other specified; Y92.89 Other specified places as the place of occurrence of the external cause; Y99.8 Other external cause status

== ENCOUNTER 2020-06-04 14:52 | Emergency (ER) | payer OTHER, MEDICAID ==
[~2020-06-04] VITALS: Ht 162.6 cm; Wt 98.0 kg
[2020-06-04 15:12] VITALS: BP 144/82
== END 2020-06-04 15:13 | disposition home or self-care (01) ==
LOC: M.ERS 14:52
DX: M72.2 Plantar fascial fibromatosis (principal); I10 Essential (primary) hypertension; M79.7 Fibromyalgia; G62.9 Polyneuropathy, unspecified

== ENCOUNTER 2020-06-06 09:01 | Emergency (ER) | payer OTHER, MEDICAID ==
[~2020-06-06] VITALS: Ht 162.6 cm; Wt 98.0 kg
[2020-06-06] MEDS ORDERED: TRAMADOL 50 MG50 MG PO (09:25)
[2020-06-06] MEDS ORDERED: ZOFRAN ODT4 MG SUBLING (09:25)
[2020-06-06 09:31] VITALS: BP 151/84
== END 2020-06-06 09:31 | disposition home or self-care (01) ==
LOC: M.ERS 09:01
DX: G89.29 Other chronic pain (principal); M79.672 Pain in left foot; I10 Essential (primary) hypertension; M79.7 Fibromyalgia; G62.9 Polyneuropathy, unspecified

== ENCOUNTER 2020-06-10 13:12 | Emergency (ER) | payer OTHER, MEDICAID ==
[~2020-06-10] VITALS: Ht 162.6 cm; Wt 98.0 kg
[2020-06-10 13:27] LABS: URINE BILIRUBIN NEGATIVE (Negative); URINE BLOOD TRACE (Negative); URINE CLARITY CLEAR; URINE COLOR YELLOW; URINE GLUCOSE-RANDOM NEGATIVE (Negative); URINE KETONES NEGATIVE (Negative); URINE LEUKOCYTES-REFLEX NEGATIVE (Negative); URINE NITRITE-REFLEX NEGATIVE (Negative); URINE PROTEIN NEGATIVE (Negative); URINE UROBILINOGEN 0.2 E.U./dl (0.2-1.0)
[2020-06-10 14:00] VITALS: BP 148/89
== END 2020-06-10 14:00 | disposition home or self-care (01) ==
LOC: M.ERS 13:12
PROVIDERS: Physician Assistant
DX: R10.9 Unspecified abdominal pain (principal); G89.29 Other chronic pain; I10 Essential (primary) hypertension; M79.7 Fibromyalgia; G62.9 Polyneuropathy, unspecified; Z79.899 Other long term (current) drug therapy; Z91.048 Other nonmedicinal substance allergy status

== ENCOUNTER 2020-06-16 05:33 | Emergency (ER) | payer OTHER, MEDICAID ==
[~2020-06-16] VITALS: Ht 162.6 cm; Wt 98.0 kg
[2020-06-16] MEDS ORDERED: HYDROCODONE-ACE15 ML PO (06:16)
[2020-06-16] MEDS ORDERED: AMOXICILLIN875 MG PO (06:16)
[2020-06-16 06:25] VITALS: BP 170/98
== END 2020-06-16 06:25 | disposition home or self-care (01) ==
LOC: M.ERS 05:33
DX: J02.0 Streptococcal pharyngitis (principal); I10 Essential (primary) hypertension; M79.7 Fibromyalgia; G89.29 Other chronic pain; G62.9 Polyneuropathy, unspecified; Z79.899 Other long term (current) drug therapy

== ENCOUNTER 2020-06-22 09:36 | Emergency (ER) | payer OTHER, MEDICAID ==
[~2020-06-22] VITALS: Ht 162.6 cm; Wt 98.0 kg
[~2020-06-22 09:36] MED LIST changes: +AMOXICILLIN875 MG PO; +HYDROCODONE-ACE15 ML PO
[2020-06-22] MEDS ORDERED: FLEXERIL PO (10:09)
[2020-06-22 10:25] VITALS: BP 129/79
== END 2020-06-22 10:25 | disposition home or self-care (01) ==
LOC: M.ERS 09:36
DX: S29.012A Strain of muscle and tendon of back wall of thorax, initial encounter (principal); I10 Essential (primary) hypertension; Z79.899 Other long term (current) drug therapy; Z91.09 Other allergy status, other than to drugs and biological substances; X58.XXXA Exposure to other specified factors, initial encounter; Y93.89 Activity, other specified; Y92.89 Other specified places as the place of occurrence of the external cause; Y99.8 Other external cause status

== ENCOUNTER 2020-06-26 14:56 | Emergency (ER) | payer OTHER, MEDICAID ==
[~2020-06-26] VITALS: Ht 162.6 cm; Wt 98.0 kg
[2020-06-26] MEDS ORDERED: PROTONIX40 M4 PO (15:12)
[2020-06-26 15:17] VITALS: BP 150/83
--- NOTE | 2020-06-27 09:20 | EKG ---
[place] [address] ELECTROCARDIOGRAM REPORT Name: DELMI ONEILL Room: [facility]#: [id number] Admission: 06/26/20 Attend Phys: Discharge: 06/26/20 Date of : [birth year] Date of Service: 06/26/20 1502 Report #: [id number] THIS REPORT FOR: //name// [facility] ED Test Date: 2020-06-26 Test Time: 15:02:13 Pat Name: DELMI ONEILL Department: Room: Gender: See Supervisor: [facility] : 1980 Requested By: Dinesh Hackett Order Number: [id number] MD: Mukund Frias Measurements Intervals [place] Rate: 91 P: 58 [place]: 172 QRS: 19 QRSD: 83 T: 19 QT: 358 QTc: 441 Interpretive Statements Sinus rhythm Compared to ECG 03/09/2020 11:35:11 Left ventricular hypertrophy no longer present Electronically Signed On 06-27-2020 9:20:02 ANTISQUEAK CHALKER by Mukund Frias [email or web address] <ELECTRONICALLY SIGNED> By: Mukund Frias MD, [facility] 06/27/20919 150 150 Mukund Frias MD, [facility] /EPI
== END 2020-06-26 15:18 | disposition home or self-care (01) ==
LOC: M.ERS 14:56
DX: R07.89 Other chest pain (principal); I10 Essential (primary) hypertension; Z79.1 Long term (current) use of non-steroidal anti-inflammatories (NSAID); Z79.899 Other long term (current) drug therapy; Z91.09 Other allergy status, other than to drugs and biological substances

== ENCOUNTER 2020-06-30 12:12 | Emergency (ER) | payer OTHER, MEDICAID ==
[~2020-06-30] VITALS: Ht 162.6 cm; Wt 98.0 kg
[~2020-06-30 12:12] MED LIST changes: +PROTONIX40 M4 PO
[2020-06-30 12:55] VITALS: BP 140/58
== END 2020-06-30 12:55 | disposition home or self-care (01) ==
LOC: M.ERS 12:12
DX: G89.29 Other chronic pain (principal); M79.672 Pain in left foot; I10 Essential (primary) hypertension; Z79.899 Other long term (current) drug therapy; Z91.09 Other allergy status, other than to drugs and biological substances

== ENCOUNTER 2020-07-03 17:08 | Emergency (ER) | payer OTHER, MEDICAID ==
[~2020-07-03] VITALS: Ht 162.6 cm; Wt 98.0 kg
[2020-07-03 18:45] VITALS: BP 134/80
== END 2020-07-03 18:47 | disposition home or self-care (01) ==
LOC: M.ERS 17:08
DX: H92.02 Otalgia, left ear (principal); I10 Essential (primary) hypertension; Z79.1 Long term (current) use of non-steroidal anti-inflammatories (NSAID); Z79.899 Other long term (current) drug therapy; Z91.09 Other allergy status, other than to drugs and biological substances

== ENCOUNTER 2020-07-09 23:46 | Emergency (ER) | payer OTHER, MEDICAID ==
[~2020-07-09] VITALS: Ht 162.6 cm; Wt 98.0 kg
[2020-07-10] MEDS ORDERED: AFRIN15 ML INH (00:37)
[2020-07-10] MEDS ORDERED: FLONASE 0.05%50 MCG NARES (00:37)
[2020-07-10 00:44] VITALS: BP 122/75
== END 2020-07-10 00:44 | disposition home or self-care (01) ==
LOC: M.ERS 23:46
DX: R09.81 Nasal congestion (principal); I10 Essential (primary) hypertension; M79.7 Fibromyalgia; G89.29 Other chronic pain; G62.9 Polyneuropathy, unspecified

== ENCOUNTER 2020-07-14 10:02 | Emergency (ER) | payer OTHER, MEDICAID ==
[~2020-07-14] VITALS: Ht 162.6 cm; Wt 98.0 kg
[~2020-07-14 10:02] MED LIST changes: +AFRIN15 ML INH
[2020-07-14] MEDS ORDERED: IBUPROFEN 600600 M1 PO (11:19)
[2020-07-14 11:20] VITALS: BP 143/71
== END 2020-07-14 11:21 | disposition home or self-care (01) ==
LOC: M.ERS 10:02
DX: G89.29 Other chronic pain (principal); M79.672 Pain in left foot; I10 Essential (primary) hypertension; M79.7 Fibromyalgia; G62.9 Polyneuropathy, unspecified; Z79.899 Other long term (current) drug therapy

== ENCOUNTER 2020-07-16 23:07 | Emergency (ER) | payer OTHER, MEDICAID ==
[~2020-07-16] VITALS: Ht 162.6 cm; Wt 98.0 kg
[~2020-07-16 23:07] MED LIST changes: +IBUPROFEN 600600 M1 PO
[2020-07-17] MEDS ORDERED: AQUAPHOR85 GM NARES (00:07)
[2020-07-17 00:11] VITALS: BP 126/68
== END 2020-07-17 00:11 | disposition home or self-care (01) ==
LOC: M.ERS 23:07
DX: J34.89 Other specified disorders of nose and nasal sinuses (principal); I10 Essential (primary) hypertension; M79.7 Fibromyalgia; G89.29 Other chronic pain; G62.9 Polyneuropathy, unspecified

== ENCOUNTER 2020-07-19 11:58 | Emergency (ER) | payer OTHER, MEDICAID ==
[~2020-07-19] VITALS: Ht 165.1 cm; Wt 98.0 kg
[~2020-07-19 11:58] MED LIST changes: +AQUAPHOR85 GM NARES
[2020-07-19] MEDS ORDERED: CENTANY30 GM NASAL (12:29)
[2020-07-19] MEDS ORDERED: AFRIN15 M1 NASAL (12:29)
[2020-07-19 12:43] VITALS: BP 159/93
== END 2020-07-19 12:44 | disposition home or self-care (01) ==
LOC: M.ERS 11:58
DX: R04.0 Epistaxis (principal); I10 Essential (primary) hypertension; M79.7 Fibromyalgia; G62.9 Polyneuropathy, unspecified; G89.29 Other chronic pain

== ENCOUNTER 2020-07-28 20:56 | Emergency (ER) | payer OTHER, MEDICAID ==
[~2020-07-28] VITALS: Ht 162.6 cm; Wt 98.9 kg
[~2020-07-28 20:56] MED LIST changes: +AFRIN15 M1 NASAL
[2020-07-28] MEDS ORDERED: NAPROSYN500 MG PO (21:17)
[2020-07-28 21:22] VITALS: BP 154/81
== END 2020-07-28 21:22 | disposition home or self-care (01) ==
LOC: M.ERS 20:56
DX: R51.9 Headache, unspecified (principal); M79.673 Pain in unspecified foot; I10 Essential (primary) hypertension; M79.7 Fibromyalgia; G62.9 Polyneuropathy, unspecified; Z79.899 Other long term (current) drug therapy; Z91.048 Other nonmedicinal substance allergy status

== ENCOUNTER 2020-08-04 15:12 | Emergency (ER) | payer OTHER, MEDICAID ==
[~2020-08-04] VITALS: Ht 162.6 cm; Wt 98.9 kg
[2020-08-04 17:40] VITALS: BP 140/75
== END 2020-08-04 17:42 | disposition home or self-care (01) ==
LOC: M.ERS 15:12
DX: M25.562 Pain in left knee (principal); I10 Essential (primary) hypertension; M79.7 Fibromyalgia; G62.9 Polyneuropathy, unspecified; Z79.899 Other long term (current) drug therapy; Z91.048 Other nonmedicinal substance allergy status; W19.XXXA Unspecified fall, initial encounter; Y93.89 Activity, other specified; Y92.89 Other specified places as the place of occurrence of the external cause; Y99.8 Other external cause status

== ENCOUNTER 2020-08-06 08:44 | Emergency (ER) | payer OTHER, MEDICAID ==
[~2020-08-06] VITALS: Ht 162.6 cm; Wt 98.9 kg
[2020-08-06] MEDS ORDERED: TRAMADOL 50 MG50 MG PO (09:07)
[2020-08-06] MEDS ORDERED: ZOFRAN ODT4 MG SUBLING (09:07)
[2020-08-06 09:12] VITALS: BP 156/85
== END 2020-08-06 09:12 | disposition home or self-care (01) ==
LOC: M.ERS 08:44
DX: M25.562 Pain in left knee (principal); I10 Essential (primary) hypertension; M79.7 Fibromyalgia; G89.29 Other chronic pain; G62.9 Polyneuropathy, unspecified

== ENCOUNTER 2020-08-11 11:24 | Emergency (ER) | payer OTHER, MEDICAID ==
[~2020-08-11] VITALS: Ht 162.6 cm; Wt 98.0 kg
[2020-08-11] MEDS ORDERED: FLONASE 0.05%50 MCG NARES (11:33)
[2020-08-11] MEDS ORDERED: OMEPRAZOLE40 MG PO (11:42)
[2020-08-11 11:45] VITALS: BP 136/97
== END 2020-08-11 11:46 | disposition home or self-care (01) ==
LOC: M.ERS 11:24
DX: R12 Heartburn (principal); Z76.0 Encounter for issue of repeat prescription; I10 Essential (primary) hypertension; M79.7 Fibromyalgia; G62.9 Polyneuropathy, unspecified; Z79.899 Other long term (current) drug therapy; Z91.048 Other nonmedicinal substance allergy status

== ENCOUNTER 2020-08-19 06:46 | Emergency (ER) | payer OTHER, MEDICAID ==
[~2020-08-19] VITALS: Ht 162.6 cm; Wt 98.0 kg
[~2020-08-19 06:46] MED LIST changes: +OMEPRAZOLE40 MG PO
[2020-08-19] MEDS ORDERED: ZOFRAN ODT4 MG SUBLING (07:34)
[2020-08-19] MEDS ORDERED: TRAMADOL 50 MG50 MG PO (07:34)
[2020-08-19] MEDS ORDERED: PREDNISONE 20 M20 M1 PO (07:34)
[2020-08-19 07:44] VITALS: BP 146/80
== END 2020-08-19 07:45 | disposition home or self-care (01) ==
LOC: M.ERS 06:46
DX: M79.672 Pain in left foot (principal); I10 Essential (primary) hypertension; M79.7 Fibromyalgia; G89.29 Other chronic pain; G62.9 Polyneuropathy, unspecified

== ENCOUNTER 2020-08-24 10:16 | Emergency (ER) | payer OTHER, MEDICAID ==
[~2020-08-24] VITALS: Ht 162.6 cm; Wt 98.0 kg
[2020-08-24 11:17] LABS: URINE BILIRUBIN NEGATIVE (Negative); URINE BLOOD NEGATIVE (Negative); URINE CLARITY CLEAR; URINE COLOR YELLOW; URINE GLUCOSE-RANDOM NEGATIVE (Negative); URINE KETONES NEGATIVE (Negative); URINE LEUKOCYTES-REFLEX NEGATIVE (Negative); URINE NITRITE-REFLEX NEGATIVE (Negative); URINE PROTEIN NEGATIVE (Negative); URINE SPECIFIC GRAVITY >= 1.030 (1.005-1.030); URINE UROBILINOGEN 0.2 E.U./dl (0.2-1.0)
[2020-08-24] MEDS ORDERED: ZOFRAN ODT4 MG SUBLING (11:27)
[2020-08-24 11:31] VITALS: BP 144/92
== END 2020-08-24 11:31 | disposition home or self-care (01) ==
LOC: M.ERS 10:16
PROVIDERS: Family Medicine
DX: R10.13 Epigastric pain (principal); R11.0 Nausea; I10 Essential (primary) hypertension; M79.7 Fibromyalgia; G89.29 Other chronic pain; G62.9 Polyneuropathy, unspecified

== ENCOUNTER 2020-09-01 14:50 | Emergency (ER) | payer OTHER, MEDICAID ==
[~2020-09-01] VITALS: Ht 162.6 cm; Wt 98.0 kg
[2020-09-01] MEDS ORDERED: STERILE SALINE126 ML NASAL (15:39)
[2020-09-01] MEDS ORDERED: CLARITIN10 MG PO (15:39)
[2020-09-01] MEDS ORDERED: IBUPROFEN 600600 M1 PO (15:39)
[2020-09-01 15:53] VITALS: BP 149/73
== END 2020-09-01 15:54 | disposition home or self-care (01) ==
LOC: M.ERS 14:50
DX: H92.02 Otalgia, left ear (principal); I10 Essential (primary) hypertension; M79.7 Fibromyalgia; G62.9 Polyneuropathy, unspecified; Z79.899 Other long term (current) drug therapy; Z91.048 Other nonmedicinal substance allergy status

== ENCOUNTER 2020-09-05 05:52 | Emergency (ER) | payer OTHER, MEDICAID ==
[~2020-09-05] VITALS: Ht 162.6 cm; Wt 98.0 kg
[~2020-09-05 05:52] MED LIST changes: +STERILE SALINE126 ML NASAL
[2020-09-05] MEDS ORDERED: IBU600 MG PO (06:22)
[2020-09-05] MEDS ORDERED: CLARITIN10 MG PO ×2 (06:22)
[2020-09-05 06:31] VITALS: BP 129/74
== END 2020-09-05 06:31 | disposition home or self-care (01) ==
LOC: M.ERS 05:52
DX: L29.9 Pruritus, unspecified (principal); R09.81 Nasal congestion; Z76.0 Encounter for issue of repeat prescription; I10 Essential (primary) hypertension; M79.7 Fibromyalgia; G89.29 Other chronic pain; G62.9 Polyneuropathy, unspecified

== ENCOUNTER → 2020-09-08 | Emergency (ER) | payer OTHER, MEDICAID ==
[~2020-09-08] VITALS: Ht 162.6 cm; Wt 117.9 kg
[~2020-09-08] MED LIST changes: +IBU600 MG PO
[2020-09-08 20:26] VITALS: BP 143/80
== END ==
LOC: M.ERS 20:19
DX: R04.0 Epistaxis (principal); I10 Essential (primary) hypertension; M79.7 Fibromyalgia; G62.9 Polyneuropathy, unspecified; Z91.048 Other nonmedicinal substance allergy status; Z79.899 Other long term (current) drug therapy

== ENCOUNTER 2020-09-14 06:20 | Emergency (ER) | payer OTHER, MEDICAID ==
[~2020-09-14] VITALS: Ht 162.6 cm; Wt 98.0 kg
[2020-09-14 06:49] VITALS: BP 144/87
[2020-09-14] MEDS ORDERED: TRAMADOL 50 MG50 MG PO (08:00)
[2020-09-14] MEDS ORDERED: ZOFRAN ODT4 MG DISSOLVE (08:00)
[2020-09-14] MEDS ORDERED: AMOXICILLIN 50500 MG PO (08:00)
== END 2020-09-14 08:05 | disposition home or self-care (01) ==
LOC: M.ERS 06:20
DX: K02.9 Dental caries, unspecified (principal); I10 Essential (primary) hypertension; M79.7 Fibromyalgia; G62.9 Polyneuropathy, unspecified; Z79.899 Other long term (current) drug therapy; Z91.048 Other nonmedicinal substance allergy status

== ENCOUNTER 2020-09-20 23:25 | Emergency (ER) | payer OTHER, MEDICAID ==
[~2020-09-20] VITALS: Ht 162.6 cm; Wt 98.0 kg
[2020-09-21] MEDS ORDERED: APAP W/CODEINE1 TA2 PO (00:48)
[2020-09-21 01:15] VITALS: BP 144/81
== END 2020-09-21 01:15 | disposition home or self-care (01) ==
LOC: M.ERS 23:25
DX: K08.89 Other specified disorders of teeth and supporting structures (principal); I10 Essential (primary) hypertension; M79.7 Fibromyalgia; G62.9 Polyneuropathy, unspecified

== ENCOUNTER 2020-09-24 11:15 | Emergency (ER) | payer OTHER, MEDICAID ==
[~2020-09-24] VITALS: Ht 162.6 cm; Wt 98.0 kg
[~2020-09-24 11:15] MED LIST changes: +APAP W/CODEINE1 TA2 PO
[2020-09-24] MEDS ORDERED: NAPROSYN500 MG PO (12:41)
[2020-09-24 12:56] VITALS: BP 138/87
== END 2020-09-24 12:57 | disposition home or self-care (01) ==
LOC: M.ERS 11:15
DX: M25.562 Pain in left knee (principal); I10 Essential (primary) hypertension; M79.7 Fibromyalgia; G89.29 Other chronic pain

== ENCOUNTER 2020-09-29 20:03 | Emergency (ER) | payer OTHER, MEDICAID ==
[~2020-09-29] VITALS: Ht 162.6 cm; Wt 99.8 kg
[2020-09-29 20:05] VITALS: BP 134/81
[2020-09-29] MEDS ORDERED: VISINE ALLERGY15 ML OPHTHALMIC (21:24)
== END 2020-09-29 21:47 | disposition home or self-care (01) ==
LOC: M.ERS 20:03
DX: H10.13 Acute atopic conjunctivitis, bilateral (principal); J30.2 Other seasonal allergic rhinitis; I10 Essential (primary) hypertension; M79.7 Fibromyalgia; G89.29 Other chronic pain

== ENCOUNTER 2020-10-07 06:36 | Emergency (ER) | payer OTHER, MEDICAID ==
[~2020-10-07] VITALS: Ht 162.6 cm; Wt 117.9 kg
[2020-10-07] MEDS ORDERED: FLEXERIL PO (07:31)
[2020-10-07 07:38] VITALS: BP 119/74
== END 2020-10-07 07:40 | disposition home or self-care (01) ==
LOC: M.ERS 06:36
DX: M54.5 Low back pain (principal); I10 Essential (primary) hypertension; M79.7 Fibromyalgia; G89.29 Other chronic pain; G62.9 Polyneuropathy, unspecified

== ENCOUNTER 2020-10-11 06:35 | Emergency (ER) | payer OTHER, MEDICAID ==
[~2020-10-11] VITALS: Ht 162.6 cm; Wt 98.0 kg
[2020-10-11] MEDS ORDERED: MOBIC7.5 MG PO (07:40)
[2020-10-11 07:44] VITALS: BP 149/74
== END 2020-10-11 07:45 | disposition home or self-care (01) ==
LOC: M.ERS 06:35
DX: M72.2 Plantar fascial fibromatosis (principal); I10 Essential (primary) hypertension; M79.7 Fibromyalgia; G62.9 Polyneuropathy, unspecified

== ENCOUNTER 2020-10-13 10:12 | Emergency (ER) | payer OTHER, MEDICAID ==
[~2020-10-13] VITALS: Ht 162.6 cm; Wt 98.0 kg
[~2020-10-13 10:12] MED LIST changes: +MOBIC7.5 MG PO
[2020-10-13 11:05] VITALS: BP 138/87
== END 2020-10-13 11:06 | disposition home or self-care (01) ==
LOC: M.ERS 10:12
DX: J35.8 Other chronic diseases of tonsils and adenoids (principal); J02.9 Acute pharyngitis, unspecified; I10 Essential (primary) hypertension; M79.7 Fibromyalgia; G62.9 Polyneuropathy, unspecified; Z91.048 Other nonmedicinal substance allergy status; Z79.899 Other long term (current) drug therapy

== ENCOUNTER 2020-10-19 02:29 | Emergency (ER) | payer OTHER, MEDICAID ==
[~2020-10-19] VITALS: Ht 162.6 cm; Wt 98.0 kg
[2020-10-19] MEDS ORDERED: AMOXICILLIN 50500 MG PO (04:06)
[2020-10-19 04:14] VITALS: BP 131/72
== END 2020-10-19 04:14 | disposition home or self-care (01) ==
LOC: M.ERS 02:29
DX: J32.1 Chronic frontal sinusitis (principal); J32.0 Chronic maxillary sinusitis; I10 Essential (primary) hypertension; M79.7 Fibromyalgia; G89.29 Other chronic pain

== ENCOUNTER 2020-10-25 07:20 | Emergency (ER) | payer OTHER, MEDICAID ==
[~2020-10-25] VITALS: Ht 162.6 cm; Wt 98.0 kg
[2020-10-25 07:26] VITALS: BP 119/66
[2020-10-25] MEDS ORDERED: TRAMADOL 50 MG50 MG PO (07:54)
[2020-10-25] MEDS ORDERED: ZOFRAN ODT4 MG DISSOLVE (07:54)
== END 2020-10-25 08:04 | disposition home or self-care (01) ==
LOC: M.ERS 07:20
DX: M54.5 Low back pain (principal); I10 Essential (primary) hypertension; M79.7 Fibromyalgia; G89.29 Other chronic pain

== ENCOUNTER 2020-10-30 13:34 | Emergency (ER) | payer OTHER, MEDICAID ==
[~2020-10-30] VITALS: Ht 162.6 cm; Wt 98.0 kg
[2020-10-30 15:15] VITALS: BP 151/71
== END 2020-10-30 15:16 | disposition home or self-care (01) ==
LOC: M.ERS 13:34
DX: M25.562 Pain in left knee (principal); I10 Essential (primary) hypertension; M79.7 Fibromyalgia; G89.29 Other chronic pain

== ENCOUNTER 2020-11-03 14:10 | Emergency (ER) | payer OTHER, MEDICAID ==
[~2020-11-03] VITALS: Ht 162.6 cm; Wt 98.0 kg
[2020-11-03] MEDS ORDERED: MIRALAX119 GM PO (14:39)
[2020-11-03] MEDS ORDERED: CITRATE OF MAG296 M1 PO (14:39)
[2020-11-03] MEDS ORDERED: ONDANSETRON ODT4 MG PO (14:39)
[2020-11-03 15:06] VITALS: BP 145/89
== END 2020-11-03 15:07 | disposition home or self-care (01) ==
LOC: M.ERS 14:10
DX: K59.00 Constipation, unspecified (principal); R11.10 Vomiting, unspecified; I10 Essential (primary) hypertension; M79.7 Fibromyalgia; G89.29 Other chronic pain; K21.9 Gastro-esophageal reflux disease without esophagitis

== ENCOUNTER 2020-11-10 20:38 | Emergency (ER) | payer OTHER, MEDICAID ==
[~2020-11-10] VITALS: Ht 162.6 cm; Wt 99.8 kg
[~2020-11-10 20:38] MED LIST changes: +CITRATE OF MAG296 M1 PO; +MIRALAX119 GM PO
[2020-11-10 22:10] VITALS: BP 150/85
== END 2020-11-10 22:11 | disposition home or self-care (01) ==
LOC: M.ERS 20:38
DX: J30.2 Other seasonal allergic rhinitis (principal); I10 Essential (primary) hypertension; M79.7 Fibromyalgia; G89.29 Other chronic pain; K21.9 Gastro-esophageal reflux disease without esophagitis; Z79.899 Other long term (current) drug therapy

== ENCOUNTER 2020-11-13 11:06 | Emergency (ER) | payer OTHER, MEDICAID ==
[~2020-11-13] VITALS: Ht 162.6 cm; Wt 98.0 kg
[2020-11-13] MEDS ORDERED: ZOFRAN ODT4 MG DISSOLVE (11:42)
[2020-11-13] MEDS ORDERED: AMOXICILLIN 50500 MG PO (11:42)
[2020-11-13] MEDS ORDERED: TRAMADOL 50 MG50 MG PO (11:42)
[2020-11-13 11:50] VITALS: BP 138/69
== END 2020-11-13 11:51 | disposition home or self-care (01) ==
LOC: M.ERS 11:06
DX: J01.00 Acute maxillary sinusitis, unspecified (principal); I10 Essential (primary) hypertension; K21.9 Gastro-esophageal reflux disease without esophagitis; Z79.899 Other long term (current) drug therapy

== ENCOUNTER 2020-11-24 08:42 | Emergency (ER) | payer OTHER, MEDICAID ==
[~2020-11-24] VITALS: Ht 162.6 cm; Wt 98.0 kg
[2020-11-24 08:52] VITALS: BP 147/83
== END 2020-11-24 09:00 | disposition home or self-care (01) ==
LOC: M.ERS 08:42
DX: M54.5 Low back pain (principal); K21.9 Gastro-esophageal reflux disease without esophagitis; I10 Essential (primary) hypertension; M79.7 Fibromyalgia; G89.29 Other chronic pain

== ENCOUNTER 2020-11-27 11:57 | Emergency (ER) | payer OTHER, MEDICAID ==
[~2020-11-27] VITALS: Ht 172.7 cm; Wt 108.9 kg
[2020-11-27 11:59] VITALS: BP 148/73
[2020-11-27] MEDS ORDERED: TRAMADOL 50 MG50 MG PO (12:12)
[2020-11-27] MEDS ORDERED: ZOFRAN ODT4 MG DISSOLVE (12:12)
[2020-11-27] MEDS ORDERED: PREDNISONE 20 M20 M1 PO (12:12)
== END 2020-11-27 12:25 | disposition home or self-care (01) ==
LOC: M.ERS 11:57
DX: M25.562 Pain in left knee (principal); I10 Essential (primary) hypertension; M79.7 Fibromyalgia; G89.29 Other chronic pain; K21.9 Gastro-esophageal reflux disease without esophagitis

== ENCOUNTER 2020-12-03 11:48 | Emergency (ER) | payer OTHER, MEDICAID ==
[~2020-12-03] VITALS: Ht 162.6 cm; Wt 98.0 kg
[2020-12-03] MEDS ORDERED: ULTRAM 50MG TAB50 MG PO (12:35)
[2020-12-03] MEDS ORDERED: NABUMETONE 750750 M1 PO (12:35)
[2020-12-03 12:42] VITALS: BP 152/85
== END 2020-12-03 12:43 | disposition home or self-care (01) ==
LOC: M.ERS 11:48
DX: M72.2 Plantar fascial fibromatosis (principal); I10 Essential (primary) hypertension; M79.7 Fibromyalgia; K21.9 Gastro-esophageal reflux disease without esophagitis; G89.29 Other chronic pain

== ENCOUNTER 2020-12-12 03:45 | Emergency (ER) | payer OTHER, MEDICAID ==
[~2020-12-12] VITALS: Ht 162.6 cm; Wt 99.8 kg
[2020-12-12 04:20] VITALS: BP 123/68
[2020-12-13] MEDS ORDERED: HYDROXYZINE HCL25 M2 PO (19:42)
[2020-12-13] MEDS ORDERED: NASONEX17 GM NASAL (19:42)
== END 2020-12-12 06:02 | disposition left against medical advice (07) ==
LOC: M.ERS 03:45
DX: Z53.21 Procedure and treatment not carried out due to patient leaving prior to being seen by health care provider (principal)

== ENCOUNTER 2020-12-13 16:28 | Emergency (ER) | payer OTHER, MEDICAID ==
[~2020-12-13] VITALS: Ht 162.6 cm; Wt 98.0 kg
[2020-12-13] MEDS ORDERED: NASONEX17 GM NASAL (19:42)
[2020-12-13] MEDS ORDERED: HYDROXYZINE HCL25 M2 PO (19:42)
[2020-12-13 19:50] VITALS: BP 122/68
== END 2020-12-13 19:50 | disposition home or self-care (01) ==
LOC: M.ERS 16:28
DX: J30.2 Other seasonal allergic rhinitis (principal); I10 Essential (primary) hypertension; M79.7 Fibromyalgia; K21.9 Gastro-esophageal reflux disease without esophagitis; G89.29 Other chronic pain

== ENCOUNTER 2020-12-17 14:40 | Emergency (ER) | payer OTHER, MEDICAID ==
[~2020-12-17] VITALS: Ht 162.6 cm; Wt 99.8 kg
[~2020-12-17 14:40] MED LIST changes: +HYDROXYZINE HCL25 M2 PO
[2020-12-17] MEDS ORDERED: AMOXICILLIN 50500 MG PO (14:54)
[2020-12-17 14:58] VITALS: BP 139/81
== END 2020-12-17 14:59 | disposition home or self-care (01) ==
LOC: M.ERS 14:40
DX: J32.9 Chronic sinusitis, unspecified (principal); I10 Essential (primary) hypertension; M79.7 Fibromyalgia; K21.9 Gastro-esophageal reflux disease without esophagitis

== ENCOUNTER 2020-12-21 07:22 | Emergency (ER) | payer OTHER, MEDICAID ==
[~2020-12-21] VITALS: Ht 162.6 cm; Wt 99.8 kg
[2020-12-21 07:52] VITALS: BP 144/97
== END 2020-12-21 07:52 | disposition home or self-care (01) ==
LOC: M.ERS 07:22
DX: S56.911A Strain of unspecified muscles, fascia and tendons at forearm level, right arm, initial encounter (principal); Z79.899 Other long term (current) drug therapy; X58.XXXA Exposure to other specified factors, initial encounter; Y93.89 Activity, other specified; Y92.89 Other specified places as the place of occurrence of the external cause; Y99.8 Other external cause status

== ENCOUNTER 2020-12-27 11:04 | Emergency (ER) | payer OTHER, MEDICAID ==
[~2020-12-27] VITALS: Ht 162.6 cm; Wt 75.8 kg
[2020-12-27] MEDS ORDERED: OMEPRAZOLE 20 M20 M1 PO (11:59)
[2020-12-27] MEDS ORDERED: ZOFRAN ODT4 MG PO (11:59)
[2020-12-27 12:05] VITALS: BP 139/89
== END 2020-12-27 12:06 | disposition home or self-care (01) ==
LOC: M.ERS 11:04
DX: K21.9 Gastro-esophageal reflux disease without esophagitis (principal); R11.0 Nausea; Z76.0 Encounter for issue of repeat prescription; I10 Essential (primary) hypertension; G89.29 Other chronic pain; M79.672 Pain in left foot; Z79.899 Other long term (current) drug therapy; Z91.09 Other allergy status, other than to drugs and biological substances

== ENCOUNTER 2020-12-31 16:11 | Emergency (ER) | payer OTHER, MEDICAID ==
[~2020-12-31] VITALS: Ht 162.6 cm; Wt 99.8 kg
[2020-12-31] MEDS ORDERED: AMOXICILLIN 50500 MG PO (17:25)
[2020-12-31 17:31] VITALS: BP 140/83
== END 2020-12-31 17:31 | disposition home or self-care (01) ==
LOC: M.ERS 16:11
DX: K02.9 Dental caries, unspecified (principal); I10 Essential (primary) hypertension; M79.7 Fibromyalgia; K21.9 Gastro-esophageal reflux disease without esophagitis; G89.29 Other chronic pain

== ENCOUNTER 2021-01-04 20:56 | Emergency (ER) | payer OTHER, MEDICAID ==
[~2021-01-04] VITALS: Ht 165.1 cm; Wt 108.9 kg
[2021-01-04 21:54] LABS: URINE CLARITY CLOUDY; URINE COLOR RED
[2021-01-04 22:02] LABS: URINE BILIRUBIN NEGATIVE (Negative); URINE BLOOD 3+ (Negative); URINE GLUCOSE-RANDOM NEGATIVE (Negative); URINE KETONES TRACE (Negative); URINE LEUKOCYTES-REFLEX TRACE (Negative); URINE NITRITE-REFLEX NEGATIVE (Negative); URINE PROTEIN 2+ (Negative); URINE SPECIFIC GRAVITY >= 1.030 (1.005-1.030); URINE UROBILINOGEN 0.2 E.U./dl (0.2-1.0)
[2021-01-04 22:11] LABS: CRYSTALS None Seen /LPF (None Seen); MUCUS 0-3 Light strn/LPF (None Seen); SQUAMOUS 4-10 Moderate /LPF (0-3); URINE RBC >20 Many /HPF (0-2); URINE WBC-REFLEX 0-5 Rare /HPF (0-5)
[2021-01-04 22:12] LABS: BACTERIA-REFLEX None Seen /HPF (None Seen); CASTS None Seen /LPF (None Seen)
[2021-01-04 23:34] VITALS: BP 130/87
--- NOTE | 2021-01-05 13:00 | EKG ---
[place] [address] ELECTROCARDIOGRAM REPORT Name: DELMI ONEILL Room: [facility]#: [id number] Admission: 01/04/21 Attend Phys: Discharge: 01/04/21 Date of : [birth year] Date of Service: 01/04/212125 Report #: [id number] THIS REPORT FOR: //name// [facility] ED Test Date: 2021-01-04 Test Time: 21:26:07 Pat Name: DELMI ONEILL Department: Room: Gender: F Legal Support Specialist: DSL : 1980 Requested By: Lottie Hawkins Order Number: [id number] Radha MD: Jesus Manuel Sosa Measurements Intervals [place] Rate: 67 P: 20 [place]: 183 QRS: 10 QRSD: 89 T: 7 QT: 390 QTc: 412 Interpretive Statements Sinus rhythm ST elev, probable normal early repol pattern Baseline wander in lead(s) II,III,aVF,V4 Compared to ECG 06/26/2020 15:02:13 ST (T wave) deviation now present Electronically Signed On 01-05-2021 13:00:01 CDT by Jesus Manuel Sosa [email or web address] <ELECTRONICALLY SIGNED> By: Jesus Manuel Sosa MD, [facility]ACC 01/05/21 1300 25 25 Jesus Manuel Sosa MD, FAC /EPI
== END 2021-01-04 23:34 | disposition home or self-care (01) ==
LOC: M.ERS 20:56
PROVIDERS: Emergency Medicine
DX: R42 Dizziness and giddiness (principal); I10 Essential (primary) hypertension; M79.7 Fibromyalgia; K21.9 Gastro-esophageal reflux disease without esophagitis

== ENCOUNTER 2021-01-09 08:26 | Emergency (ER) | payer OTHER, MEDICAID ==
[~2021-01-09] VITALS: Ht 162.6 cm; Wt 99.8 kg
[2021-01-09 09:36] VITALS: BP 146/93
== END 2021-01-09 09:37 | disposition home or self-care (01) ==
LOC: M.ERS 08:26
DX: R23.4 Changes in skin texture (principal); I10 Essential (primary) hypertension; M79.7 Fibromyalgia; K21.9 Gastro-esophageal reflux disease without esophagitis

== ENCOUNTER 2021-01-13 05:59 | Emergency (ER) | payer OTHER, MEDICAID ==
[~2021-01-13] VITALS: Ht 162.6 cm; Wt 99.8 kg
[2021-01-13 06:10] VITALS: BP 141/71
== END 2021-01-13 06:51 | disposition home or self-care (01) ==
LOC: M.ERS 05:59
DX: J32.9 Chronic sinusitis, unspecified (principal); I10 Essential (primary) hypertension; M79.7 Fibromyalgia; K21.9 Gastro-esophageal reflux disease without esophagitis; G89.29 Other chronic pain

== ENCOUNTER 2021-01-16 09:15 | Emergency (ER) | payer OTHER, MEDICAID ==
[~2021-01-16] VITALS: Ht 162.6 cm; Wt 99.8 kg
[2021-01-16 13:07] VITALS: BP 141/80
== END 2021-01-16 13:00 | disposition left against medical advice (07) ==
LOC: M.ERS 09:15
DX: Z53.21 Procedure and treatment not carried out due to patient leaving prior to being seen by health care provider (principal); Z20.822 Contact with and (suspected) exposure to COVID-19

== ENCOUNTER 2021-01-16 17:23 | Emergency (ER) | payer OTHER, MEDICAID | END 2021-01-16 17:59 | disposition left against medical advice (07) | LOC: M.ERS 17:23 | DX: Z53.21 Procedure and treatment not carried out due to patient leaving prior to being seen by health care provider (principal) ==

== ENCOUNTER 2021-01-19 07:11 | Emergency (ER) | payer OTHER, MEDICAID ==
[~2021-01-19] VITALS: Ht 162.6 cm; Wt 99.8 kg
[2021-01-19 08:08] VITALS: BP 124/69
== END 2021-01-19 08:09 | disposition home or self-care (01) ==
LOC: M.ERS 07:11
DX: M72.2 Plantar fascial fibromatosis (principal); I10 Essential (primary) hypertension; M79.7 Fibromyalgia; K21.9 Gastro-esophageal reflux disease without esophagitis; G89.29 Other chronic pain

== ENCOUNTER 2021-01-19 22:14 | Emergency (ER) | payer OTHER, MEDICAID ==
[~2021-01-19] VITALS: Ht 162.6 cm; Wt 99.8 kg
[2021-01-19 22:32] LABS: ABSOLUTE BASOPHILS 0.1 thou/uL (0.0-0.2); ABSOLUTE EOSINOPHILS 0.1 thou/uL (0.0-0.7); ABSOLUTE MONOCYTES 0.7 thou/uL (0.0-1.2); BASOPHILS 0.9 %; EOSINOPHILS 0.6 %; HEMATOCRIT 36.4 % (37.0-47.0); HEMOGLOBIN 11.8 gm/dL (12.0-15.0); LYMPHOCYTES 45.5 %; MCH 25.2 pg (26.0-34.0); MCHC 32.4 g/dL (28.0-37.0); MCV 77.7 fL (80.0-100.0); MONOCYTES 8.1 %; MPV 7.3 fl. (7.2-11.1); NUCLEATED RBCS 0 /100WBC; PLATELET COUNT* 365 thou/uL (150-400); POLYS 44.9 %; RBC 4.68 mil/uL (4.20-5.00); RDW-CV 14.4 % (10.5-14.5); WBC 8.8 thou/uL (4.0-11.0)
[2021-01-19 22:39] LABS: CALCIUM 8.7 mg/dL (8.5-10.1); CREATININE 1.3 mg/dL (0.6-1.3); POTASSIUM 3.7 mmol/L (3.5-5.1)
[2021-01-19 22:50] LABS: ALBUMIN 3.7 g/dL (3.4-5.0); TOTAL BILIRUBIN 0.3 mg/dL (<0.1-1.0); TOTAL PROTEIN 7.7 g/dL (6.4-8.2)
[2021-01-20 02:01] VITALS: BP 107/54
--- NOTE | 2021-01-20 09:42 | EKG ---
[place] [address] ELECTROCARDIOGRAM REPORT Name: DELMI ONEILL Room: [facility]#: [id number] Admission: 01/19/21 Attend Phys: Discharge: 01/20/21 Date of : [birth year] Date of Service: 01/19/212219 Report #: [id number] THIS REPORT FOR: //name// [facility] ED Test Date: 2021-01-19 Test Time: 22:20:57 Pat Name: DELMI ONEILL Department: Room: Gender: Manufacturing Engineer: ERIC : 1980 Requested By: Lottie Hawkins Order Number: [id number] MD: Mukund Frias Measurements Intervals [place] Rate: 74 P: 42 IA: 174 QRS: 15 QRSD: 87 T: 7 QT: 378 QTc: 420 Interpretive Statements Sinus rhythm Compared to ECG 01/04/2021 21:26:07 no change Electronically Signed On 01-20-2021 9:42:30 CDT by Mukund Frias [email or web address] <ELECTRONICALLY SIGNED> By: Mukund Frias MD, [facility] 01/20/21 0942 19 Mukund Frias MD, [facility] /EPI
[2021-01-21] MEDS ORDERED: ONDANSETRON ODT4 MG PO (16:04)
[2021-01-21] MEDS ORDERED: OMEPRAZOLE 20 M20 M1 PO (16:04)
== END 2021-01-20 02:01 | disposition home or self-care (01) ==
LOC: M.ERS 22:14
PROVIDERS: Emergency Medicine
DX: R07.89 Other chest pain (principal); Z20.822 Contact with and (suspected) exposure to COVID-19; I10 Essential (primary) hypertension; M79.7 Fibromyalgia; G89.29 Other chronic pain; K21.9 Gastro-esophageal reflux disease without esophagitis; Z79.899 Other long term (current) drug therapy

== ENCOUNTER 2021-01-21 15:27 | Emergency (ER) | payer OTHER, MEDICAID ==
[~2021-01-21] VITALS: Ht 162.6 cm; Wt 99.8 kg
[2021-01-21] MEDS ORDERED: ONDANSETRON ODT4 MG PO (16:04)
[2021-01-21] MEDS ORDERED: OMEPRAZOLE 20 M20 M1 PO (16:04)
[2021-01-21 16:10] VITALS: BP 116/66
== END 2021-01-21 16:11 | disposition home or self-care (01) ==
LOC: M.ERS 15:27
DX: R11.0 Nausea (principal); R10.9 Unspecified abdominal pain; I10 Essential (primary) hypertension; M79.7 Fibromyalgia; G89.29 Other chronic pain; K21.9 Gastro-esophageal reflux disease without esophagitis; Z76.0 Encounter for issue of repeat prescription

== ENCOUNTER 2021-01-24 10:50 | Emergency (ER) | payer OTHER, MEDICAID ==
[~2021-01-24] VITALS: Ht 162.6 cm; Wt 99.8 kg
[2021-01-24] MEDS ORDERED: OMEPRAZOLE 20 M20 M1 PO (11:57)
[2021-01-24] MEDS ORDERED: ZOFRAN ODT4 MG DISSOLVE (11:57)
[2021-01-24 12:10] VITALS: BP 124/72
== END 2021-01-24 12:10 | disposition home or self-care (01) ==
LOC: M.ERS 10:50
DX: R11.2 Nausea with vomiting, unspecified (principal); I10 Essential (primary) hypertension; K21.9 Gastro-esophageal reflux disease without esophagitis; Z79.899 Other long term (current) drug therapy

== ENCOUNTER 2021-01-29 18:31 | Emergency (ER) | payer OTHER, MEDICAID ==
[~2021-01-29] VITALS: Ht 162.6 cm; Wt 99.8 kg
[2021-01-29 20:33] VITALS: BP 163/91
== END 2021-01-29 20:34 | disposition home or self-care (01) ==
LOC: M.ERS 18:31
DX: M79.651 Pain in right thigh (principal); I10 Essential (primary) hypertension; M79.7 Fibromyalgia; K21.9 Gastro-esophageal reflux disease without esophagitis; Z79.899 Other long term (current) drug therapy

== ENCOUNTER 2021-02-03 20:14 | Emergency (ER) | payer OTHER, MEDICAID ==
[~2021-02-03] VITALS: Ht 162.6 cm; Wt 99.8 kg
[2021-02-03] MEDS ORDERED: OMEPRAZOLE 20 M20 M1 PO (21:52)
[2021-02-03] MEDS ORDERED: CARAFATE1 GM/10 ML PO (21:52)
[2021-02-03 21:57] VITALS: BP 121/70
== END 2021-02-03 22:00 | disposition home or self-care (01) ==
LOC: M.ERS 20:14
DX: K21.9 Gastro-esophageal reflux disease without esophagitis (principal); R11.0 Nausea; I10 Essential (primary) hypertension; M79.7 Fibromyalgia; Z79.899 Other long term (current) drug therapy; Z79.1 Long term (current) use of non-steroidal anti-inflammatories (NSAID); Z91.09 Other allergy status, other than to drugs and biological substances

== ENCOUNTER 2021-02-05 10:23 | Emergency (ER) | payer OTHER, MEDICAID ==
[~2021-02-05] VITALS: Ht 162.6 cm; Wt 99.8 kg
[2021-02-05 10:30] VITALS: BP 164/84
[2021-02-05] MEDS ORDERED: MEDROLDOSEPACK PO (10:33)
[2021-02-05] MEDS ORDERED: ZOFRAN ODT4 MG DISSOLVE (10:33)
[2021-02-05] MEDS ORDERED: TRAMADOL 50 MG50 MG PO (10:33)
== END 2021-02-05 10:38 | disposition home or self-care (01) ==
LOC: M.ERS 10:23
DX: M72.2 Plantar fascial fibromatosis (principal); I10 Essential (primary) hypertension; M79.7 Fibromyalgia; K21.9 Gastro-esophageal reflux disease without esophagitis; Z79.899 Other long term (current) drug therapy; Z91.09 Other allergy status, other than to drugs and biological substances

== ENCOUNTER 2021-02-05 21:38 | Emergency (ER) | payer OTHER, MEDICAID | END 2021-02-05 22:09 | disposition home or self-care (01) | LOC: M.ERS 21:38 | DX: M72.2 Plantar fascial fibromatosis (principal); Z76.5 Malingerer [conscious simulation]; I10 Essential (primary) hypertension; M79.7 Fibromyalgia; K21.9 Gastro-esophageal reflux disease without esophagitis; Z91.048 Other nonmedicinal substance allergy status; Z79.899 Other long term (current) drug therapy ==

== ENCOUNTER 2021-02-08 09:20 | Emergency (ER) | payer OTHER, MEDICAID ==
[~2021-02-08] VITALS: Ht 162.6 cm; Wt 99.8 kg
[2021-02-08 09:50] LABS: URINE BILIRUBIN NEGATIVE (Negative); URINE BLOOD NEGATIVE (Negative); URINE CLARITY CLEAR; URINE COLOR YELLOW; URINE GLUCOSE-RANDOM NEGATIVE (Negative); URINE KETONES NEGATIVE (Negative); URINE LEUKOCYTES-REFLEX NEGATIVE (Negative); URINE NITRITE-REFLEX NEGATIVE (Negative); URINE PROTEIN NEGATIVE (Negative); URINE SPECIFIC GRAVITY 1.025 (1.005-1.030); URINE UROBILINOGEN 0.2 E.U./dl (0.2-1.0)
[2021-02-08] MEDS ORDERED: FLEXERIL PO (10:17)
[2021-02-08 10:36] VITALS: BP 150/86
== END 2021-02-08 10:36 | disposition home or self-care (01) ==
LOC: M.ERS 09:20
PROVIDERS: Emergency Medicine Emergency Medical Services
DX: S39.012A Strain of muscle, fascia and tendon of lower back, initial encounter (principal); R30.9 Painful micturition, unspecified; R35.0 Frequency of micturition; I10 Essential (primary) hypertension; M79.7 Fibromyalgia; K21.9 Gastro-esophageal reflux disease without esophagitis; Z91.048 Other nonmedicinal substance allergy status; Z79.899 Other long term (current) drug therapy; X58.XXXA Exposure to other specified factors, initial encounter; Y93.89 Activity, other specified; Y92.89 Other specified places as the place of occurrence of the external cause; Y99.8 Other external cause status

== ENCOUNTER 2021-02-12 08:14 | Emergency (ER) | payer OTHER, MEDICAID ==
[~2021-02-12] VITALS: Ht 162.6 cm; Wt 99.8 kg
[2021-02-12 08:14] VITALS: BP 142/75
== END 2021-02-12 08:59 | disposition home or self-care (01) ==
LOC: M.ERS 08:14
DX: J30.9 Allergic rhinitis, unspecified (principal); I10 Essential (primary) hypertension; K21.9 Gastro-esophageal reflux disease without esophagitis; Z79.899 Other long term (current) drug therapy

== ENCOUNTER 2021-02-15 07:21 | Emergency (ER) | payer OTHER, MEDICAID | END 2021-02-15 08:29 | disposition left against medical advice (07) | LOC: M.ERS 07:21 | DX: J34.89 Other specified disorders of nose and nasal sinuses (principal); Z53.21 Procedure and treatment not carried out due to patient leaving prior to being seen by health care provider ==

== ENCOUNTER → 2021-02-16 | Outpatient (CLI) | payer OTHER | LOC: M.CT 08:00 | PROVIDERS: ATTEND Internal Medicine Cardiovascular Disease | DX: Z13.6 Encounter for screening for cardiovascular disorders (principal) ==

== ENCOUNTER 2021-02-18 08:03 | Emergency (ER) | payer OTHER, MEDICAID ==
[~2021-02-18] VITALS: Ht 162.6 cm; Wt 99.8 kg
[2021-02-18 08:25] VITALS: BP 127/71
== END 2021-02-18 08:27 | disposition home or self-care (01) ==
LOC: M.ERS 08:03
DX: R04.0 Epistaxis (principal); I10 Essential (primary) hypertension; K21.9 Gastro-esophageal reflux disease without esophagitis; G89.29 Other chronic pain; Z79.899 Other long term (current) drug therapy

== ENCOUNTER 2021-02-19 12:53 | Emergency (ER) | payer OTHER, MEDICAID ==
[~2021-02-19] VITALS: Ht 162.6 cm; Wt 99.8 kg
[2021-02-19 13:32] LABS: ABSOLUTE BASOPHILS 0.1 thou/uL (0.0-0.2); ABSOLUTE LYMPHOCYTES 2.2 thou/uL (0.8-5.3); ABSOLUTE MONOCYTES 0.4 thou/uL (0.0-1.2); ABSOLUTE NEUTROPHILS 3.5 thou/uL (1.6-8.1); BASOPHILS 0.9 %; EOSINOPHILS 0.5 %; HEMATOCRIT 35.4 % (37.0-47.0); HEMOGLOBIN 11.5 gm/dL (12.0-15.0); MCH 25.8 pg (26.0-34.0); MCHC 32.5 g/dL (28.0-37.0); MCV 79.3 fL (80.0-100.0); MPV 7.4 fl. (7.2-11.1); NUCLEATED RBCS 0 /100WBC; PLATELET COUNT* 350 thou/uL (150-400); POLYS 56.6 %; RBC 4.46 mil/uL (4.20-5.00); RDW-CV 14.1 % (10.5-14.5); WBC 6.3 thou/uL (4.0-11.0)
[2021-02-19 13:32] LABS: INFLUENZA A ANTIGEN Negative (Negative); INFLUENZA B ANTIGEN Negative (Negative)
[2021-02-19 13:34] LABS: URINE BILIRUBIN NEGATIVE (Negative); URINE BLOOD NEGATIVE (Negative); URINE CLARITY CLEAR; URINE COLOR YELLOW; URINE GLUCOSE-RANDOM NEGATIVE (Negative); URINE KETONES NEGATIVE (Negative); URINE LEUKOCYTES-REFLEX NEGATIVE (Negative); URINE NITRITE-REFLEX NEGATIVE (Negative); URINE PROTEIN NEGATIVE (Negative); URINE SPECIFIC GRAVITY <= 1.005 (1.005-1.030); URINE UROBILINOGEN 0.2 E.U./dl (0.2-1.0)
[2021-02-19 13:43] LABS: CALCIUM 8.8 mg/dL (8.5-10.1); POTASSIUM 3.8 mmol/L (3.5-5.1)
[2021-02-19 13:49] LABS: ALBUMIN 3.6 g/dL (3.4-5.0); TOTAL BILIRUBIN 0.4 mg/dL (<0.1-1.0); TOTAL PROTEIN 7.5 g/dL (6.4-8.2)
[2021-02-19 15:12] VITALS: BP 145/70
--- NOTE | 2021-02-20 10:12 | EKG ---
[place] [address] ELECTROCARDIOGRAM REPORT Name: DELMI ONEILL Room: [facility]#: [id number] Admission: 02/19/21 Attend Phys: Discharge: 02/19/21 Date of : 80 Date of Service: 02/19/21 1319 Report #: [id number] THIS REPORT FOR: //name// [facility] ED Test Date: 2021-02-19 Test Time: 13:19:50 Pat Name: DELMI ONEILL Department: Room: Gender: F Institutional Research Director: GRAFF : 1980 Requested By: Kae Puente Order Number: [id number] MD: Mukund Frias Measurements Intervals [place] Rate: 68 P: 17 TX: 167 QRS: 11 QRSD: 89 T: -9 QT: 371 QTc: 395 Interpretive Statements Sinus rhythm Borderline T abnormalities, inferior leads Compared to ECG 01/19/2021 22:20:57 no change Electronically Signed On 02-20-2021 10:12:08 CDT by Mukund rFias [email or web address] <ELECTRONICALLY SIGNED> By: Mukund Frias MD, [facility] 02/20/21 1012 1319 1319 Mukund Frias MD, [facility] /EPI
== END 2021-02-19 15:13 | disposition home or self-care (01) ==
LOC: M.ERS 12:53
PROVIDERS: Nurse Practitioner Family
DX: R03.0 Elevated blood-pressure reading, without diagnosis of hypertension (principal); Z20.822 Contact with and (suspected) exposure to COVID-19; R51.9 Headache, unspecified; R11.0 Nausea; R42 Dizziness and giddiness; I10 Essential (primary) hypertension; M79.7 Fibromyalgia; K21.9 Gastro-esophageal reflux disease without esophagitis; Z79.899 Other long term (current) drug therapy

== ENCOUNTER 2021-02-24 09:35 | Emergency (ER) | payer OTHER, MEDICAID ==
[~2021-02-24] VITALS: Ht 162.6 cm; Wt 102.1 kg
[2021-02-24 11:23] VITALS: BP 139/86
== END 2021-02-24 11:23 | disposition left against medical advice (07) ==
LOC: M.ERS 09:35
DX: M79.662 Pain in left lower leg (principal); Z53.21 Procedure and treatment not carried out due to patient leaving prior to being seen by health care provider

== ENCOUNTER 2021-02-24 21:13 | Emergency (ER) | payer OTHER, MEDICAID ==
[~2021-02-24] VITALS: Ht 162.6 cm; Wt 99.8 kg
[2021-02-24 21:37] VITALS: BP 138/84
== END 2021-02-24 21:37 | disposition home or self-care (01) ==
LOC: M.ERS 21:13
DX: M79.672 Pain in left foot (principal); G89.29 Other chronic pain

== ENCOUNTER 2021-02-28 07:29 | Emergency (ER) | payer OTHER, MEDICAID ==
[~2021-02-28] VITALS: Ht 162.6 cm; Wt 99.8 kg
[2021-02-28 08:07] VITALS: BP 159/79
== END 2021-02-28 08:08 | disposition home or self-care (01) ==
LOC: M.ERS 07:29
DX: M72.2 Plantar fascial fibromatosis (principal); I10 Essential (primary) hypertension; K21.9 Gastro-esophageal reflux disease without esophagitis; Z79.899 Other long term (current) drug therapy

== ENCOUNTER 2021-03-01 11:27 | Emergency (ER) | payer OTHER, MEDICAID ==
[~2021-03-01] VITALS: Ht 162.6 cm; Wt 99.8 kg
[2021-03-01 12:10] LABS: CALCIUM 8.7 mg/dL (8.5-10.1); CREATININE 0.9 mg/dL (0.6-1.3); POTASSIUM 3.8 mmol/L (3.5-5.1)
[2021-03-01 12:19] VITALS: BP 145/80
== END 2021-03-01 12:20 | disposition home or self-care (01) ==
LOC: M.ERS 11:27
PROVIDERS: Emergency Medicine Emergency Medical Services
DX: I10 Essential (primary) hypertension (principal); R51.9 Headache, unspecified; K21.9 Gastro-esophageal reflux disease without esophagitis; Z79.899 Other long term (current) drug therapy

== ENCOUNTER 2021-03-08 09:58 | Emergency (ER) | payer OTHER, MEDICAID ==
[~2021-03-08] VITALS: Ht 162.6 cm; Wt 99.8 kg
[2021-03-08 11:08] VITALS: BP 134/72
== END 2021-03-08 11:08 | disposition home or self-care (01) ==
LOC: M.ERS 09:58
DX: J02.9 Acute pharyngitis, unspecified (principal); Z20.822 Contact with and (suspected) exposure to COVID-19; I10 Essential (primary) hypertension; M79.7 Fibromyalgia; K21.9 Gastro-esophageal reflux disease without esophagitis; Z91.09 Other allergy status, other than to drugs and biological substances; Z79.899 Other long term (current) drug therapy

== ENCOUNTER 2021-03-12 12:17 | Emergency (ER) | payer OTHER, MEDICAID ==
[~2021-03-12] VITALS: Ht 162.6 cm; Wt 99.8 kg
[2021-03-12] MEDS ORDERED: LOPERAMIDE 2 MG2 M1 PO (12:31)
[2021-03-12] MEDS ORDERED: ONDANSETRON ODT4 MG PO (12:31)
[2021-03-12 12:50] VITALS: BP 145/95
== END 2021-03-12 12:50 | disposition home or self-care (01) ==
LOC: M.ERS 12:17
DX: R11.2 Nausea with vomiting, unspecified (principal); R19.7 Diarrhea, unspecified; I10 Essential (primary) hypertension; K21.9 Gastro-esophageal reflux disease without esophagitis; M79.7 Fibromyalgia; Z79.899 Other long term (current) drug therapy

== ENCOUNTER 2021-03-18 07:23 | Emergency (ER) | payer OTHER, MEDICAID ==
[~2021-03-18] VITALS: Ht 162.6 cm; Wt 99.8 kg
[~2021-03-18 07:23] MED LIST changes: +LOPERAMIDE 2 MG2 M1 PO
[2021-03-18] MEDS ORDERED: PREDNISONE 20 M20 M1 PO (07:43)
[2021-03-18] MEDS ORDERED: TRAMADOL 50 MG50 MG PO (07:43)
[2021-03-18] MEDS ORDERED: ZOFRAN ODT4 MG DISSOLVE (07:43)
[2021-03-18 07:47] VITALS: BP 156/86
== END 2021-03-18 07:48 | disposition home or self-care (01) ==
LOC: M.ERS 07:23
DX: G89.29 Other chronic pain (principal); M79.672 Pain in left foot; I10 Essential (primary) hypertension; M79.7 Fibromyalgia; K21.9 Gastro-esophageal reflux disease without esophagitis

== ENCOUNTER → 2021-03-24 | Outpatient (CLI) | payer OTHER, MEDICAID ==
[~2021-03-24] MED LIST changes: +POLYMYXIN B/TMP10 ML INTRAOCULR
[2021-03-24 09:46] LABS: ALBUMIN 3.4 g/dL (3.4-5.0); ALKALINE PHOSPHATASE 65 U/L (46-116); CHOLESTEROL 199 mg/dL (<200); DIRECT BILIRUBIN 0.1 mg/dL (<0.1-0.3); HDL CHOLESTEROL 42 mg/dL (>40); LDL CHOLESTEROL 139 mg/dL (<100); SGOT 13 U/L (15-37); SGPT 16 U/L (30-65); TC:HDL 4.7 Ratio (Not establshd); TOTAL BILIRUBIN 0.5 mg/dL (<0.1-1.0); TOTAL PROTEIN 7.4 g/dL (6.4-8.2); TRIGLYCERIDE 93 mg/dL (<150); VLDL 19 mg/dL (<40)
[2021-03-24 09:54] LABS: SERUM ASSESSMENT Clear
[2021-03-24 10:30] LABS: CK-MB MASS < 0.5 ng/mL (<0.5-3.6)
== END ==
LOC: M.LAB 09:12
PROVIDERS: ATTEND Nurse Practitioner
DX: E78.49 Other hyperlipidemia (principal)

== ENCOUNTER 2021-03-25 13:41 | Emergency (ER) | payer OTHER, MEDICAID ==
[~2021-03-25] VITALS: Ht 162.6 cm; Wt 99.8 kg
[~2021-03-25 13:41] MED LIST changes: -POLYMYXIN B/TMP10 ML INTRAOCULR
[2021-03-25] MEDS ORDERED: POLYMYXIN B/TMP10 ML INTRAOCULR (14:28)
[2021-03-25 14:45] VITALS: BP 141/83
== END 2021-03-25 14:45 | disposition home or self-care (01) ==
LOC: M.ERS 13:41
DX: H10.9 Unspecified conjunctivitis (principal); I10 Essential (primary) hypertension; M79.7 Fibromyalgia; K21.9 Gastro-esophageal reflux disease without esophagitis; Z91.048 Other nonmedicinal substance allergy status; Z79.899 Other long term (current) drug therapy

== ENCOUNTER 2021-03-31 11:18 | Emergency (ER) | payer OTHER, MEDICAID ==
[~2021-03-31] VITALS: Ht 162.6 cm; Wt 99.8 kg
[~2021-03-31 11:18] MED LIST changes: +POLYMYXIN B/TMP10 ML INTRAOCULR
[2021-03-31] MEDS ORDERED: TRAMADOL 50 MG50 MG PO (11:30)
[2021-03-31] MEDS ORDERED: PREDNISONE 20 M20 M1 PO (11:30)
[2021-03-31 11:33] VITALS: BP 150/102
== END 2021-03-31 11:35 | disposition home or self-care (01) ==
LOC: M.ERS 11:18
DX: M79.672 Pain in left foot (principal); I10 Essential (primary) hypertension; M79.7 Fibromyalgia; K21.9 Gastro-esophageal reflux disease without esophagitis; M72.2 Plantar fascial fibromatosis; Z79.1 Long term (current) use of non-steroidal anti-inflammatories (NSAID); Z79.891 Long term (current) use of opiate analgesic; Z79.899 Other long term (current) drug therapy; Z91.09 Other allergy status, other than to drugs and biological substances

== ENCOUNTER 2021-04-11 13:16 | Emergency (ER) | payer OTHER, MEDICAID ==
[~2021-04-11] VITALS: Ht 162.6 cm; Wt 99.8 kg
[2021-04-11 13:22] VITALS: BP 154/88
[2021-04-11] MEDS ORDERED: ZYRTEC 10 MG TA10 MG PO (13:25)
[2021-04-11] MEDS ORDERED: FLONASE 0.05%50 MCG NARES (13:25)
== END 2021-04-11 13:32 | disposition home or self-care (01) ==
LOC: M.ERS 13:16
DX: J30.9 Allergic rhinitis, unspecified (principal); I10 Essential (primary) hypertension; M79.7 Fibromyalgia; K21.9 Gastro-esophageal reflux disease without esophagitis; Z79.899 Other long term (current) drug therapy; Z79.2 Long term (current) use of antibiotics; Z91.048 Other nonmedicinal substance allergy status

== ENCOUNTER 2021-04-17 01:43 | Emergency (ER) | payer OTHER, MEDICAID ==
[~2021-04-17] VITALS: Ht 162.6 cm; Wt 99.8 kg
[2021-04-17 02:31] LABS: URINE BILIRUBIN NEGATIVE (Negative); URINE BLOOD NEGATIVE (Negative); URINE CLARITY CLEAR; URINE COLOR YELLOW; URINE GLUCOSE-RANDOM NEGATIVE (Negative); URINE KETONES NEGATIVE (Negative); URINE LEUKOCYTES-REFLEX NEGATIVE (Negative); URINE NITRITE-REFLEX NEGATIVE (Negative); URINE PROTEIN TRACE (Negative); URINE SPECIFIC GRAVITY >= 1.030 (1.005-1.030)
[2021-04-17] MEDS ORDERED: ZOFRAN ODT4 MG PO (02:43)
[2021-04-17] MEDS ORDERED: CARAFATE 1 GM TA1 G1 PO (02:43)
[2021-04-17 02:55] VITALS: BP 127/76
== END 2021-04-17 02:55 | disposition home or self-care (01) ==
LOC: M.ERS 01:43
PROVIDERS: Personal Emergency Response Attendant
DX: R11.0 Nausea (principal); K21.9 Gastro-esophageal reflux disease without esophagitis; I10 Essential (primary) hypertension; M79.7 Fibromyalgia; Z91.14 Patient's other noncompliance with medication regimen; Z79.899 Other long term (current) drug therapy; Z91.048 Other nonmedicinal substance allergy status

== ENCOUNTER 2021-04-17 11:08 | Emergency (ER) | payer OTHER, MEDICAID ==
[~2021-04-17] VITALS: Ht 162.6 cm; Wt 99.8 kg
[2021-04-17 12:57] VITALS: BP 134/72
== END 2021-04-17 12:58 | disposition home or self-care (01) ==
LOC: M.ERS 11:08
DX: R11.2 Nausea with vomiting, unspecified (principal); R10.13 Epigastric pain; I10 Essential (primary) hypertension; K21.9 Gastro-esophageal reflux disease without esophagitis; M79.7 Fibromyalgia; Z79.899 Other long term (current) drug therapy; Z91.048 Other nonmedicinal substance allergy status

== ENCOUNTER 2021-04-18 17:38 | Emergency (ER) | payer OTHER, MEDICAID ==
[~2021-04-18] VITALS: Ht 162.6 cm; Wt 99.8 kg
[2021-04-18 18:55] VITALS: BP 126/65
== END 2021-04-18 20:13 | disposition home or self-care (01) ==
LOC: M.ERS 17:38
DX: K21.9 Gastro-esophageal reflux disease without esophagitis (principal); R11.0 Nausea; I10 Essential (primary) hypertension; Z79.899 Other long term (current) drug therapy

== ENCOUNTER 2021-04-25 10:48 | Emergency (ER) | payer OTHER, MEDICAID ==
[~2021-04-25] VITALS: Ht 162.6 cm; Wt 78.0 kg
[2021-04-25] MEDS ORDERED: TRAMADOL 50 MG50 MG PO (11:38)
[2021-04-25 11:46] VITALS: BP 164/87
== END 2021-04-25 11:47 | disposition home or self-care (01) ==
LOC: M.ERS 10:48
DX: M72.2 Plantar fascial fibromatosis (principal); I10 Essential (primary) hypertension; K21.9 Gastro-esophageal reflux disease without esophagitis; Z79.899 Other long term (current) drug therapy

== ENCOUNTER 2021-04-29 10:33 | Emergency (ER) | payer OTHER, MEDICAID ==
[~2021-04-29] VITALS: Ht 162.6 cm; Wt 78.0 kg
[2021-04-29 10:49] VITALS: BP 156/90
== END 2021-04-29 10:50 | disposition home or self-care (01) ==
LOC: M.ERS 10:33
DX: J30.9 Allergic rhinitis, unspecified (principal); I10 Essential (primary) hypertension; K21.9 Gastro-esophageal reflux disease without esophagitis; Z79.899 Other long term (current) drug therapy

== ENCOUNTER 2021-05-06 07:18 | Emergency (ER) | payer OTHER, MEDICAID ==
[~2021-05-06] VITALS: Ht 162.6 cm; Wt 99.8 kg
[2021-05-06 07:59] LABS: URINE BILIRUBIN NEGATIVE (Negative); URINE BLOOD 2+ (Negative); URINE CLARITY SL CLOUDY; URINE COLOR YELLOW; URINE GLUCOSE-RANDOM NEGATIVE (Negative); URINE KETONES NEGATIVE (Negative); URINE LEUKOCYTES-REFLEX NEGATIVE (Negative); URINE NITRITE-REFLEX NEGATIVE (Negative); URINE PROTEIN TRACE (Negative); URINE SPECIFIC GRAVITY >= 1.030 (1.005-1.030); URINE UROBILINOGEN 0.2 E.U./dl (0.2-1.0)
[2021-05-06 08:31] LABS: CASTS None Seen /LPF (None Seen); SQUAMOUS >10 Many /LPF (0-3); URINE RBC 3-10 Few /HPF (0-2)
[2021-05-06 08:33] LABS: BACTERIA-REFLEX 1-9 Few /HPF (None Seen); URINE WBC-REFLEX 0-5 Rare /HPF (0-5)
[2021-05-06 08:36] VITALS: BP 132/70
[2021-05-06 08:39] LABS: CRYSTALS None Seen /LPF (None Seen)
== END 2021-05-06 08:36 | disposition home or self-care (01) ==
LOC: M.ERS 07:18
PROVIDERS: Family Medicine
DX: M54.50 Low back pain, unspecified (principal); I10 Essential (primary) hypertension; M79.7 Fibromyalgia; G89.29 Other chronic pain; K21.9 Gastro-esophageal reflux disease without esophagitis; Z79.899 Other long term (current) drug therapy

== ENCOUNTER → 2021-05-09 | Outpatient (CLI) | payer OTHER, MEDICAID | LOC: M.ULTRA 07:45 | DX: R92.8 Other abnormal and inconclusive findings on diagnostic imaging of breast (principal) ==

== ENCOUNTER 2021-05-13 08:57 | Emergency (ER) | payer OTHER, MEDICAID ==
[~2021-05-13] VITALS: Ht 162.6 cm; Wt 99.8 kg
[2021-05-13] MEDS ORDERED: FLONASE 0.05%50 MCG NARES (09:13)
[2021-05-13] MEDS ORDERED: CLARITIN10 MG PO (09:13)
[2021-05-13 09:23] VITALS: BP 131/76
== END 2021-05-13 09:24 | disposition home or self-care (01) ==
LOC: M.ERS 08:57
DX: J30.9 Allergic rhinitis, unspecified (principal); I10 Essential (primary) hypertension; K21.9 Gastro-esophageal reflux disease without esophagitis; Z79.899 Other long term (current) drug therapy

== ENCOUNTER 2021-05-20 18:44 | Emergency (ER) | payer OTHER, MEDICAID ==
[~2021-05-20] VITALS: Ht 162.6 cm; Wt 99.8 kg
[2021-05-20 19:08] VITALS: BP 148/83
== END 2021-05-20 20:30 | disposition left against medical advice (07) ==
LOC: M.ERS 18:44
DX: I10 Essential (primary) hypertension (principal); Z53.21 Procedure and treatment not carried out due to patient leaving prior to being seen by health care provider

== ENCOUNTER 2021-05-24 15:48 | Emergency (ER) | payer OTHER, MEDICAID ==
[~2021-05-24] VITALS: Ht 162.6 cm; Wt 99.8 kg
[2021-05-24 16:24] LABS: INFLUENZA A ANTIGEN Negative (Negative); INFLUENZA B ANTIGEN Negative (Negative)
[2021-05-24] MEDS ORDERED: MEDROLDOSEPACK PO (16:46)
[2021-05-24 16:59] VITALS: BP 170/76
== END 2021-05-24 17:00 | disposition home or self-care (01) ==
LOC: M.ERS 15:48
PROVIDERS: Physician Assistant
DX: J06.9 Acute upper respiratory infection, unspecified (principal); Z20.822 Contact with and (suspected) exposure to COVID-19; I10 Essential (primary) hypertension; M79.7 Fibromyalgia; G89.29 Other chronic pain; K21.9 Gastro-esophageal reflux disease without esophagitis; Z79.899 Other long term (current) drug therapy

== ENCOUNTER 2021-05-28 12:12 | Emergency (ER) | payer OTHER, MEDICAID ==
[~2021-05-28] VITALS: Ht 162.6 cm; Wt 99.8 kg
[2021-05-28 13:00] LABS: INFLUENZA A ANTIGEN Negative (Negative); INFLUENZA B ANTIGEN Negative (Negative)
[2021-05-28 13:10] VITALS: BP 171/86
== END 2021-05-28 13:11 | disposition home or self-care (01) ==
LOC: M.ERS 12:12
PROVIDERS: Physician Assistant
DX: J06.9 Acute upper respiratory infection, unspecified (principal); Z20.822 Contact with and (suspected) exposure to COVID-19; I10 Essential (primary) hypertension; K21.9 Gastro-esophageal reflux disease without esophagitis

== ENCOUNTER 2021-06-02 08:28 | Emergency (ER) | payer OTHER, MEDICAID ==
[~2021-06-02] VITALS: Ht 162.6 cm; Wt 99.8 kg
[2021-06-02 08:43] LABS: URINE BILIRUBIN NEGATIVE (Negative); URINE BLOOD NEGATIVE (Negative); URINE CLARITY CLEAR; URINE COLOR YELLOW; URINE GLUCOSE-RANDOM NEGATIVE (Negative); URINE KETONES NEGATIVE (Negative); URINE LEUKOCYTES-REFLEX NEGATIVE (Negative); URINE NITRITE-REFLEX NEGATIVE (Negative); URINE PROTEIN NEGATIVE (Negative); URINE SPECIFIC GRAVITY 1.025 (1.005-1.030); URINE UROBILINOGEN 0.2 E.U./dl (0.2-1.0)
[2021-06-02 09:08] VITALS: BP 141/85
== END 2021-06-02 09:09 | disposition home or self-care (01) ==
LOC: M.ERS 08:28
PROVIDERS: Family Medicine
DX: R30.9 Painful micturition, unspecified (principal); I10 Essential (primary) hypertension; M79.7 Fibromyalgia; K21.9 Gastro-esophageal reflux disease without esophagitis; Z91.048 Other nonmedicinal substance allergy status; Z79.899 Other long term (current) drug therapy

== ENCOUNTER 2021-06-08 07:32 | Emergency (ER) | payer OTHER, MEDICAID ==
[~2021-06-08] VITALS: Ht 162.6 cm; Wt 99.8 kg
[2021-06-08 08:38] VITALS: BP 130/74
== END 2021-06-08 09:45 | disposition left against medical advice (07) ==
LOC: M.ERS 07:32
DX: M79.672 Pain in left foot (principal); I10 Essential (primary) hypertension; M79.7 Fibromyalgia; K21.9 Gastro-esophageal reflux disease without esophagitis; Z91.09 Other allergy status, other than to drugs and biological substances; Z53.21 Procedure and treatment not carried out due to patient leaving prior to being seen by health care provider

== ENCOUNTER 2021-06-09 06:16 | Emergency (ER) | payer OTHER, MEDICAID ==
[~2021-06-09] VITALS: Ht 162.6 cm; Wt 99.8 kg
[2021-06-09 08:24] VITALS: BP 161/80
== END 2021-06-09 08:25 | disposition home or self-care (01) ==
LOC: M.ERS 06:16
DX: R05.9 Cough, unspecified (principal); R09.89 Other specified symptoms and signs involving the circulatory and respiratory systems; R68.83 Chills (without fever); I10 Essential (primary) hypertension; M79.7 Fibromyalgia; K21.9 Gastro-esophageal reflux disease without esophagitis; Z91.048 Other nonmedicinal substance allergy status; Z79.899 Other long term (current) drug therapy

== ENCOUNTER 2021-06-10 19:23 | Emergency (ER) | payer OTHER, MEDICAID ==
[~2021-06-10] VITALS: Ht 162.6 cm; Wt 99.8 kg
[2021-06-10 20:58] VITALS: BP 150/79
== END 2021-06-10 21:05 | disposition home or self-care (01) ==
LOC: M.ERS 19:23
DX: J06.9 Acute upper respiratory infection, unspecified (principal); I10 Essential (primary) hypertension; M79.7 Fibromyalgia; K21.9 Gastro-esophageal reflux disease without esophagitis; Z91.048 Other nonmedicinal substance allergy status; Z79.899 Other long term (current) drug therapy

== ENCOUNTER 2021-06-13 06:39 | Emergency (ER) | payer OTHER, MEDICAID ==
[~2021-06-13] VITALS: Ht 162.6 cm; Wt 99.8 kg
[2021-06-13 06:41] VITALS: BP 147/92
== END 2021-06-13 10:59 | disposition left against medical advice (07) ==
LOC: M.ERS 06:39
DX: J02.9 Acute pharyngitis, unspecified (principal); I10 Essential (primary) hypertension; M79.7 Fibromyalgia; K21.9 Gastro-esophageal reflux disease without esophagitis; Z91.09 Other allergy status, other than to drugs and biological substances; Z53.21 Procedure and treatment not carried out due to patient leaving prior to being seen by health care provider

== ENCOUNTER 2021-06-16 07:35 | Emergency (ER) | payer OTHER, MEDICAID ==
[~2021-06-16] VITALS: Ht 162.6 cm; Wt 99.8 kg
[2021-06-16 08:06] VITALS: BP 143/90
== END 2021-06-16 08:06 | disposition home or self-care (01) ==
LOC: M.ERS 07:35
DX: J06.9 Acute upper respiratory infection, unspecified (principal); I10 Essential (primary) hypertension; M79.7 Fibromyalgia; K21.9 Gastro-esophageal reflux disease without esophagitis; Z91.09 Other allergy status, other than to drugs and biological substances; Z79.891 Long term (current) use of opiate analgesic; Z79.1 Long term (current) use of non-steroidal anti-inflammatories (NSAID); Z79.899 Other long term (current) drug therapy

== ENCOUNTER 2021-06-19 08:29 | Emergency (ER) | payer OTHER, MEDICAID ==
[~2021-06-19] VITALS: Ht 162.6 cm; Wt 99.8 kg
[2021-06-19 09:37] VITALS: BP 122/73
== END 2021-06-19 10:41 | disposition left against medical advice (07) ==
LOC: M.ERS 08:29
DX: R05.9 Cough, unspecified (principal); R09.81 Nasal congestion; R11.0 Nausea; Z53.21 Procedure and treatment not carried out due to patient leaving prior to being seen by health care provider

== ENCOUNTER 2021-06-23 07:11 | Emergency (ER) | payer OTHER, MEDICAID ==
[~2021-06-23] VITALS: Ht 162.6 cm; Wt 99.8 kg
[2021-06-23 08:00] VITALS: BP 160/71
== END 2021-06-23 08:29 | disposition home or self-care (01) ==
LOC: M.ERS 07:11
DX: B34.9 Viral infection, unspecified (principal); J32.9 Chronic sinusitis, unspecified; I10 Essential (primary) hypertension; M79.7 Fibromyalgia; K21.9 Gastro-esophageal reflux disease without esophagitis; Z91.048 Other nonmedicinal substance allergy status; Z79.899 Other long term (current) drug therapy

== ENCOUNTER 2021-06-27 08:24 | Emergency (ER) | payer OTHER, MEDICAID ==
[~2021-06-27] VITALS: Ht 162.6 cm; Wt 99.8 kg
[2021-06-27 09:21] VITALS: BP 145/72
== END 2021-06-27 09:22 | disposition home or self-care (01) ==
LOC: M.ERS 08:24
DX: G89.29 Other chronic pain (principal); M79.672 Pain in left foot; M79.89 Other specified soft tissue disorders; I10 Essential (primary) hypertension; M79.7 Fibromyalgia; K21.9 Gastro-esophageal reflux disease without esophagitis; Z91.048 Other nonmedicinal substance allergy status; Z79.899 Other long term (current) drug therapy

== ENCOUNTER 2021-07-01 13:21 | Emergency (ER) | payer OTHER, MEDICAID ==
[~2021-07-01] VITALS: Ht 162.6 cm; Wt 99.8 kg
[2021-07-01 13:42] LABS: URINE BILIRUBIN NEGATIVE (Negative); URINE BLOOD NEGATIVE (Negative); URINE CLARITY CLEAR; URINE COLOR YELLOW; URINE GLUCOSE-RANDOM NEGATIVE (Negative); URINE KETONES NEGATIVE (Negative); URINE LEUKOCYTES-REFLEX NEGATIVE (Negative); URINE NITRITE-REFLEX NEGATIVE (Negative); URINE PROTEIN NEGATIVE (Negative); URINE SPECIFIC GRAVITY <= 1.005 (1.005-1.030); URINE UROBILINOGEN 0.2 E.U./dl (0.2-1.0)
[2021-07-01 14:09] VITALS: BP 150/84
== END 2021-07-01 14:10 | disposition home or self-care (01) ==
LOC: M.ERS 13:21
PROVIDERS: Family Medicine
DX: R30.0 Dysuria (principal); R35.0 Frequency of micturition; R11.0 Nausea; R68.2 Dry mouth, unspecified; I10 Essential (primary) hypertension; M79.7 Fibromyalgia; K21.9 Gastro-esophageal reflux disease without esophagitis; Z91.048 Other nonmedicinal substance allergy status; Z79.899 Other long term (current) drug therapy

== ENCOUNTER 2021-07-10 15:21 | Emergency (ER) | payer OTHER, MEDICAID ==
[~2021-07-10] VITALS: Ht 162.6 cm; Wt 99.8 kg
[2021-07-10 18:31] VITALS: BP 159/92
== END 2021-07-10 18:32 | disposition left against medical advice (07) ==
LOC: M.ERS 15:21
DX: R06.02 Shortness of breath (principal); Z53.21 Procedure and treatment not carried out due to patient leaving prior to being seen by health care provider

== ENCOUNTER 2021-07-13 09:28 | Emergency (ER) | payer OTHER, MEDICAID ==
[~2021-07-13] VITALS: Ht 162.6 cm; Wt 99.8 kg
[2021-07-13 12:19] LABS: URINE BILIRUBIN NEGATIVE (Negative); URINE BLOOD 1+ (Negative); URINE CLARITY CLEAR; URINE COLOR YELLOW; URINE GLUCOSE-RANDOM NEGATIVE (Negative); URINE KETONES NEGATIVE (Negative); URINE LEUKOCYTES-REFLEX NEGATIVE (Negative); URINE NITRITE-REFLEX NEGATIVE (Negative); URINE PROTEIN NEGATIVE (Negative); URINE SPECIFIC GRAVITY 1.025 (1.005-1.030); URINE UROBILINOGEN 0.2 E.U./dl (0.2-1.0)
[2021-07-13 12:22] VITALS: BP 134/83
[2021-07-13 12:33] LABS: BACTERIA-REFLEX None Seen /HPF (None Seen); CASTS None Seen /LPF (None Seen); CRYSTALS None Seen /LPF (None Seen); SQUAMOUS 4-10 Moderate /LPF (0-3)
[2021-07-13 12:34] LABS: URINE RBC 3-10 Few /HPF (0-2); URINE WBC-REFLEX None Seen /HPF (0-5)
== END 2021-07-13 12:22 | disposition home or self-care (01) ==
LOC: M.ERS 09:28
PROVIDERS: Physician Assistant
DX: U07.1 COVID-19 (principal); I10 Essential (primary) hypertension; M79.7 Fibromyalgia; Z91.09 Other allergy status, other than to drugs and biological substances; K21.9 Gastro-esophageal reflux disease without esophagitis; Z79.899 Other long term (current) drug therapy; Z79.891 Long term (current) use of opiate analgesic

== ENCOUNTER 2021-07-20 11:36 | Emergency (ER) | payer OTHER, MEDICAID ==
[~2021-07-20] VITALS: Ht 162.6 cm; Wt 99.8 kg
[2021-07-20] MEDS ORDERED: NAPROSYN500 MG PO (12:36)
[2021-07-20 12:41] VITALS: BP 163/96
== END 2021-07-20 12:41 | disposition home or self-care (01) ==
LOC: M.ERS 11:36
DX: S70.12XA Contusion of left thigh, initial encounter (principal); I10 Essential (primary) hypertension; M79.7 Fibromyalgia; K21.9 Gastro-esophageal reflux disease without esophagitis; Z91.048 Other nonmedicinal substance allergy status; Z79.899 Other long term (current) drug therapy; W18.39XA Other fall on same level, initial encounter; Y93.01 Activity, walking, marching and hiking; Y92.89 Other specified places as the place of occurrence of the external cause; Y99.8 Other external cause status

== ENCOUNTER 2021-07-26 09:00 | Emergency (ER) | payer OTHER, MEDICAID ==
[~2021-07-26] VITALS: Ht 162.6 cm; Wt 99.8 kg
[2021-07-26 09:41] VITALS: BP 142/79
--- NOTE | 2021-07-26 10:11 | EKG ---
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
== END 2021-07-26 09:42 | disposition home or self-care (01) ==
LOC: M.ERS 09:00
DX: R00.2 Palpitations (principal); I10 Essential (primary) hypertension; M79.7 Fibromyalgia; K21.9 Gastro-esophageal reflux disease without esophagitis; Z91.048 Other nonmedicinal substance allergy status; Z79.899 Other long term (current) drug therapy

== ENCOUNTER 2021-08-01 11:43 | Emergency (ER) | payer OTHER, MEDICAID ==
[~2021-08-01] VITALS: Ht 162.6 cm; Wt 99.8 kg
[2021-08-01] MEDS ORDERED: TRAMADOL 50 MG50 MG PO (11:59)
[2021-08-01] MEDS ORDERED: DEXAMETHASONE 44 M1 PO (11:59)
[2021-08-01] MEDS ORDERED: ZPAK PO (11:59)
[2021-08-01] MEDS ORDERED: ZOFRAN ODT4 MG DISSOLVE (11:59)
[2021-08-01 12:15] VITALS: BP 157/86
== END 2021-08-01 12:16 | disposition home or self-care (01) ==
LOC: M.ERS 11:43
DX: U07.1 COVID-19 (principal); B34.9 Viral infection, unspecified; I10 Essential (primary) hypertension; M79.7 Fibromyalgia; K21.9 Gastro-esophageal reflux disease without esophagitis; Z91.09 Other allergy status, other than to drugs and biological substances; Z79.891 Long term (current) use of opiate analgesic; Z79.899 Other long term (current) drug therapy